=== PATIENT | female | born 1930 | race Caucasian/White ===

== ENCOUNTER 2017-12-22 17:12 | Inpatient (IN) | payer MEDICARE, BC ==
--- NOTE | 2017-12-22 17:25 | EDM.PDOC ---
ED HPI GENERAL MEDICAL PROBLEM - General Chief Complaint: Respiratory Problem Stated Complaint: SHANE PT Time Seen by Provider: 12/22/17 17:15 Source of Information: Reports: Patient, [facility] Records History Limitations: Reports: No Limitations - History of Present Illness INITIAL COMMENTS - FREE TEXT/NARRATIVE: Presents to the ER via the [employer] bus. Reported by [facility] nursing a history of hemoptysis and wheezing. The patient states that she has a history of epistaxis as well however. She states that she is not any more short of breath than she usually is. She does not take any blood thinners except an enteric-coated aspirin daily. No chest pain or fever. Back Pain Score (Numeric/FACES): 5 - Related Data Allergies Allergy/AdvReac Type Severity Reaction Status Date / Time influenza virus vaccine, Allergy Weakness Verified 12/22/17 17:18 specific [influenza virus vacc,specific] levofloxacin [From Levaquin] Allergy Cannot Verified 12/22/17 17:19 Remember Home Meds: Home Meds Acetaminophen [Tylenol Arthritis Pain] 650 mg PO Q6H PRN 01/22/15 [History] Aspirin [Halfprin] 81 mg PO DAILY 01/22/15 [History] Bumetanide 0.5 mg PO DAILY 01/22/15 [History] Calcium Citrate/Vitamin D3 [Calcium Citrate - Vit D Caplet] 1 each PO BID [History] Carbamide Peroxide [Debrox 6.5% Otic Soln] 3 drop OT DAILY PRN 01/22/15 [History ] Magnesium Hydroxide [Milk of Magnesia] 30 ml PO DAILY PRN 01/22/15 [History] Polyethylene Glycol 3350 [MiraLAX] 17 gm PO DAILY PRN 01/22/15 [History] Sodium Chloride [Saline Nasal [place]] 1 spray NS QID PRN 01/22/15 [History] buPROPion [Wellbutrin XL] 150 mg PO DAILY 01/22/15 [History] HYDROmorphone HCl [Dilaudid] 2 mg PO BEDTIME 01/29/15 [History] Hydrocodone/Acetaminophen [Hydrocodon-Acetaminophen 5-325] 1 tab PO BID [History] Allopurinol [Zyloprim] 100 mg PO DAILY 12/22/17 [History] Bisacodyl [Dulcolax] 10 mg RC Q24H PRN 12/22/17 [History] Calcium Carbonate [Tums] 1,000 mg PO Q6H PRN 12/22/17 [History] Dextran 70/Hypromellose [Artificial Tears] 15 ml OP TID 12/22/17 [History] Dextromethorphan HBr [Tussin Cough] 5 ml PO Q4H PRN 12/22/17 [History] Fexofenadine HCl [Vee Allergy] 60 mg PO DAILY 12/22/17 [History] Insulin Glargine,Hum.Rec.Anlog [Lantus Solostar] 25 unit SQ BEDTIME 12/22/17 [ History] Linagliptin [Tradjenta] 5 mg PO DAILY 12/22/17 [History] Lutein/Min/Vit C/Vit E Acetate [Ocuvite Lutein] 1 cap PO DAILY 12/22/17 [History ] Nystatin 1 gm TP Q8H PRN 12/22/17 [History] Ondansetron 4 mg PO Q8H PRN 12/22/17 [History] Propranolol HCl [Inderal Xl] 80 mg PO DAILY 12/22/17 [History] Sennosides [Senna] 1 tab PO BID PRN 12/22/17 [History] diphenhydrAMINE [Benadryl] 25 mg PO BEDTIME 12/22/17 [History] traZODone HCl [Trazodone HCl] 150 mg PO BEDTIME 12/22/17 [History] Social & Family History - Tobacco Use Smoking Status *Q: Never Smoker Second Hand Smoke Exposure: No - Alcohol Use Days Per Week of Alcohol Use: 0 - Recreational Drug Use Recreational Drug Use: No ED ROS GENERAL - Review of Systems Review Of Systems: ROS reveals no pertinent complaints other than HPI. Constitutional: Reports: No Symptoms. Denies: Fever ED EXAM, GENERAL - Physical Exam Exam: See Below Exam Limited By: No Limitations General Appearance: Alert, No Apparent Distress Ears: Normal External Exam Nose: Normal Inspection Throat/Mouth: Normal Inspection Head: Atraumatic, Normocephalic Neck: Normal Inspection, Supple, Non-Tender Respiratory/Chest: No Respiratory Distress, Normal Breath Sounds, Crackles ( bases) Cardiovascular: Regular Rate, Rhythm, Other (lower leg and forefoot edema) GI/Abdominal: Normal Bowel Sounds, Soft, Non-Tender, No Distention Back Exam: Normal Inspection Extremities: Pedal Edema Neurological: Alert, Oriented, Normal Cognition Psychiatric: Normal Affect, Normal Mood Skin Exam: Warm, Dry, Intact, Normal Color, No Rash Lymphatic: No Adenopathy Course - Vital Signs Last Recorded V/S: Last Vital Signs Temp 36.3 C 12/22/17 17:12 Pulse 65 12/22/17 18:33 Resp 18 12/22/17 18:33 BP 143/61 H 12/22/17 18:33 Pulse Ox 97 12/22/17 18:33 - Orders/Labs/Meds Orders: Active Orders 24 hr Category Date Time Status CXR [Chest 2V] [CR] Stat Exams 12/22/17 17:17 Ordered Labs: Laboratory Tests 12/22/17 12/22/17 12/22/17 Range/Units 17:33 17:33 17:33 WBC 10.35 (4.0-11.0) K/uL RBC 4.41 (4.30-5.90) M/uL Hgb 11.8 L (12.0-16.0) g/dL Hct 36.6 (36.0-46.0) % MCV 83.0 (80.0-98.0) fL MCH 26.8 L (27.0-32.0) pg MCHC 32.2 (31.0-37.0) g/dL RDW Std Deviation 48.2 (28.0-62.0) fl RDW Coeff of Kary 16 H (11.0-15.0) % Plt Count 183 (150-400) K/uL MPV 8.80 (7.40-12.00) fL Neut % (Auto) 69.4 (48.0-80.0) % Lymph % (Auto) 20.8 (16.0-40.0) % [place] % (Auto) 6.9 (0.0-15.0) % Eos % (Auto) 2.7 (0.0-7.0) % Baso % (Auto) 0.2 (0.0-1.5) % Neut # (Auto) 7.2 H (1.4-5.7) K/uL Lymph # (Auto) 2.2 (0.6-2.4) K/uL [place] # (Auto) 0.7 (0.0-0.8) K/uL Eos # (Auto) 0.3 (0.0-0.7) K/uL Baso # (Auto) 0.0 (0.0-0.1) K/uL Nucleated RBC % 0.0 /100WBC Nucleated RBCs # 0 K/uL INR 1.00 Sodium 139 (136-146) mmol/L Potassium 3.5 (3.5-5.1) mmol/L Chloride 98 (98-110) mmol/L Carbon Dioxide 29 (21-31) mmol/L BUN 15 (6.0-23.0) mg/dL Creatinine 1.6 H (0.6-1.5) mg/dL Est Cr Clr Drug Dosing 19.40 mL/min Estimated GFR (MDRD) 30.6 ml/min Glucose 150 H (60-110) mg/dL Calcium 11.3 H (8.8-10.8) mg/dL Total Bilirubin 0.6 (0.1-1.5) mg/dL AST 18 (5-40) IU/L ALT 18 (8-54) IU/L Alkaline Phosphatase 78 (40-150) Troponin I (0.0-0.29) NG/ML B-Natriuretic Peptide (<100) PG/ML Total Protein 6.4 (6.0-8.0) g/dL Albumin 3.1 L (3.4-4.8) g/dL Globulin 3.3 (2.0-3.5) g/dL Albumin/Globulin Ratio 0.9 L (1.3-2.8) 12/22/17 12/22/17 Range/Units 17:33 17:33 WBC (4.0-11.0) K/uL RBC (4.30-5.90) M/uL Hgb (12.0-16.0) g/dL Hct (36.0-46.0) % MCV (80.0-98.0) fL MCH (27.0-32.0) pg MCHC (31.0-37.0) g/dL RDW Std Deviation (28.0-62.0) fl RDW Coeff of Kary (11.0-15.0) % Plt Count (150-400) K/uL MPV (7.40-12.00) fL Neut % (Auto) (48.0-80.0) % Lymph % (Auto) (16.0-40.0) % [place] % (Auto) (0.0-15.0) % Eos % (Auto) (0.0-7.0) % Baso % (Auto) (0.0-1.5) % Neut # (Auto) (1.4-5.7) K/uL Lymph # (Auto) (0.6-2.4) K/uL [place] # (Auto) (0.0-0.8) K/uL Eos # (Auto) (0.0-0.7) K/uL Baso # (Auto) (0.0-0.1) K/uL Nucleated RBC % /100WBC Nucleated RBCs # K/uL INR Sodium (136-146) mmol/L Potassium (3.5-5.1) mmol/L Chloride (98-110) mmol/L Carbon Dioxide (21-31) mmol/L BUN (6.0-23.0) mg/dL Creatinine (0.6-1.5) mg/dL Est Cr Clr Drug Dosing mL/min Estimated GFR (MDRD) ml/min Glucose (60-110) mg/dL Calcium (8.8-10.8) mg/dL Total Bilirubin (0.1-1.5) mg/dL AST (5-40) IU/L ALT (8-54) IU/L Alkaline Phosphatase (40-150) Troponin I < 0.10 (0.0-0.29) NG/ML B-Natriuretic Peptide 147 H (<100) PG/ML Total Protein (6.0-8.0) g/dL Albumin (3.4-4.8) g/dL Globulin (2.0-3.5) g/dL Albumin/Globulin Ratio (1.3-2.8) - Re-Assessments/Exams Free Text/Narrative Re-Assessment/Exam: 12/22/17 19:[address] Hickman. Will admit for pnuemonitis. Departure - Departure Time of Disposition: 19:55 Disposition: Admitted As Inpatient 68 Condition: Good Clinical Impression: Pneumonitis - Discharge Information Forms: ED Department Discharge - My Orders Last 24 Hours: My Active Orders 12/22/17 17:17 CXR [Chest 2V] [CR] Stat - Assessment/Plan Last 24 Hours: My Active Orders 12/22/17 17:17 CXR [Chest 2V] [CR] Stat
[2017-12-22] MEDS ORDERED: Levofloxacin/Dextrose 5%-Water 750 MG in Premix Bag 1 BAG IV ONE (19:28)
[2017-12-22] MEDS ORDERED: Sodium Chloride 0.9% 1,000 ML IV ONE (19:32)
--- NOTE | 2017-12-22 20:52 | PCM.HP ---
H&P History of Present Illness - General Date of Service: 12/22/17 Admit Problem/Dx: Admission Diagnosis/Problem Admission Diagnosis/Problem Pneumonitis Source of Information: Patient, Family History Limitations: Reports: No Limitations - History of Present Illness Initial Comments - Free Text/Narative: 87-year-old [facility] female brought by [employer] with chief complaint of hemoptysis and wheezing with past medical history of cardiomegaly, hypertension, type 2 diabetes, gout, and GERD. Patient is accompanied by her grandson and his who help with the history. Patient states that she has been coughing for the past 3 weeks. She developed hemoptysis today and thus was sent to the emergency room for further assessment. Patient denies any blood thinners other than an enteric-coated aspirin. She denies any shortness of breath, chest pain, palpitations, syncopal episodes, or focal neurologic deficits. She also denies any recent fevers, chills, nausea, vomiting, diarrhea, or other signs of systemic infection. When questioned patient does admit to orthopnea, nocturnal paroxysmal dyspnea, pedal edema, and shortness of breath with exertion. She has never been told that she has congestive heart failure but does have a history of cardiomegaly. She does have pain bilaterally in her legs however this is more chronic in nature and she denies any significant new swelling to extremities bilaterally. She denies any history of coagulation disorders, DVT, or PE. She also has been wheezing and denies any history of COPD or asthma. This occasional wheezing started recently. Emergency department: Vital signs within normal limits, afebrile and satting 95% on oxygen. CBC showed mild anemia 11.8 and an INR of 1.0. CMP showed a mild increase in creatinine of 1.6 with GFR of 30.6. BNP was elevated at 147. Influenza screen was negative. Chest x-ray revealed mild cardiomegaly with ill-defined pulmonary vasculature suggesting pulmonary venous congestion, moderate right pleural effusion with right basilar atelectasis or infiltrate, linear atelectasis or scarring in the left lower lung field. In the emergency department she was started on Levaquin and 1 L normal saline. Blood cultures as well as sputum cultures were obtained. Patient was admitted for hemoptysis. After admission d-dimer was ordered by myself and found to be elevated at 1.75. CTA could not be performed secondary to GFR. VQ scan was not available secondary to being unavailable in the evening. A venous duplex Doppler bilateral lower extremities was ordered. Normal saline was discontinued as well as Levaquin as patient did say she had a allergy to Levaquin on her medication list however when questioned she states that she is unsure if this was actually a real allergy. Patient appeared vol. overloaded on exam. Onset of Symptoms: Reports: Today, Sudden Back Pain Score (Numeric/FACES): 5 - Related Data Allergies/Adverse Reactions: Allergies Allergy/AdvReac Type Severity Reaction Status Date / Time influenza virus vaccine, Allergy Weakness Verified 12/22/17 17:18 specific [influenza virus vacc,specific] levofloxacin [From Levaquin] Allergy Cannot Verified 12/22/17 17:19 Remember Home Medications: Home Meds Acetaminophen [Tylenol Arthritis Pain] 650 mg PO Q6H PRN 01/22/15 [History] Aspirin [Halfprin] 81 mg PO DAILY 01/22/15 [History] Bumetanide 1 mg PO BID 01/22/15 [History] Carbamide Peroxide [Debrox 6.5% Otic Soln] 3 drop EARBOTH DAILY PRN 01/22/15 [ History] Magnesium Hydroxide [Milk of Magnesia] 30 ml PO DAILY PRN 01/22/15 [History] Polyethylene Glycol 3350 [MiraLAX] 17 gm PO DAILY 01/22/15 [History] Sodium Chloride [Saline Nasal [place]] 1 spray NS QID PRN 01/22/15 [History] buPROPion [Wellbutrin XL] 150 mg PO BEDTIME 01/22/15 [History] HYDROmorphone HCl [Dilaudid] 2 mg PO BEDTIME 01/29/15 [History] Hydrocodone/Acetaminophen [Hydrocodon-Acetaminophen 5-325] 1 tab PO Q6H PRN 04/09 [History] Allopurinol [Zyloprim] 100 mg PO DAILY 12/22/17 [History] Bisacodyl [Dulcolax] 10 mg RC Q24H PRN 12/22/17 [History] Calcium Carbonate [Tums] 1,000 mg PO Q6H PRN 12/22/17 [History] Dextran 70/Hypromellose [Artificial Tears] 15 ml OP TID 12/22/17 [History] Dextromethorphan HBr [Tussin Cough] 5 ml PO Q4H PRN 12/22/17 [History] Fexofenadine HCl [Vee Allergy] 60 mg PO DAILY 12/22/17 [History] Insulin Glargine,Hum.Rec.Anlog [Lantus Solostar] 25 unit SUBCUT BEDTIME [History] Linagliptin [Tradjenta] 5 mg PO DAILY 12/22/17 [History] Lutein/Min/Vit C/Vit E Acetate [Ocuvite Lutein] 1 cap PO DAILY 12/22/17 [History ] Nystatin 1 applic TOP Q8H PRN 12/22/17 [History] Ondansetron 4 mg PO Q8H PRN 12/22/17 [History] Propranolol HCl [Inderal Xl] 80 mg PO DAILY 12/22/17 [History] Sennosides [Senna] 1 tab PO BID 12/22/17 [History] diphenhydrAMINE [Benadryl] 25 mg PO BEDTIME 12/22/17 [History] traZODone HCl [Trazodone HCl] 150 mg PO BEDTIME 12/22/17 [History] Aloe Vera/Sodium Chloride [[place] Saline Nasal Gel] 1 applic NASBOTH ASDIRECTED PRN 12/23/17 [History] Calcium Citrate/Vitamin D3 [Calcium Citrate - Vit D Tablet] 1 each PO BID [History] Nasal Airflow [Breathe Right Med/LG] 1 each TOP BEDTIME 12/23/17 [History] Past Medical History HEENT History: Reports: Allergic Rhinitis, Sinusitis Cardiovascular History: Reports: Hypertension Genitourinary History: Reports: Retention, Urinary Musculoskeletal History: Reports: Osteoarthritis, Other (See Below) Other Musculoskeletal History: weakness, osteomylitis Psychiatric History: Reports: Depression Endocrine/Metabolic History: Reports: Diabetes, Type II - Infectious Disease History Infectious Disease History: Reports: Chicken Pox, Measles, Mumps - Past Surgical History Musculoskeletal Surgical History: Reports: Knee Replacement Social & Family History - Family History Family Medical History: Noncontributory - Tobacco Use Smoking Status *Q: Never Smoker Second Hand Smoke Exposure: No - Alcohol Use Days Per Week of Alcohol Use: 0 - Recreational Drug Use Recreational Drug Use: No H&P Review of Systems - Review of Systems: Review Of Systems: See Below General: Denies: Fever, Chills, Malaise, Weakness, Fatigue HEENT: Denies: Headaches, Sore Throat Pulmonary: Reports: Wheezing, Cough, Sputum, Hemoptysis. Denies: Shortness of Breath Cardiovascular: Reports: Dyspnea on Exertion, Orthopnea, PND, Edema. Denies: Chest Pain, Palpitations Gastrointestinal: Denies: Abdominal Pain, Black Stool, Bloody Stool, Diarrhea, Nausea, Vomiting Genitourinary: Denies: Dysuria, Hematuria Musculoskeletal: Denies: Neck Pain, Leg Pain Skin: Denies: Cyanosis Neurological: Denies: Confusion, Dizziness, Headache Hematologic/Lymphatic: Denies: Anemia Immunologic: Denies: Anaphylaxis Exam - Exam Exam: See Below - Vital Signs Vital Signs: Last Vital Signs Temp 97.3 F 12/22/17 17:12 Pulse 60 12/22/17 20:38 Resp 20 12/22/17 20:38 BP 141/98 H 12/22/17 20:38 Pulse Ox 95 12/22/17 20:38 Weight: 107.501 kg - Exam Quality Assessment: DVT Prophylaxis General: Alert, Oriented, Cooperative HEENT: PERRLA, Hearing Intact, Mucosa Moist & [place], Nares Patent, Normal Nasal Septum, Posterior Pharynx Clear, Conjunctiva Clear, EOMI, EACs Clear, TMs Clear Neck: Supple, Trachea Midline, 2 Lungs: Clear to Auscultation, Normal Respiratory Effort Cardiovascular: Regular Rate, Regular Rhythm, Systolic Murmur, Gallop/S4 GI/Abdominal Exam: Normal Bowel Sounds, Soft, Non-Tender, No Organomegaly, No Distention, Pelvis Stable (Female) Exam: Deferred Rectal (Female) Exam: Deferred Back Exam: Normal Inspection, Full Range of Motion, NT Extremities: Normal Inspection, Non-Tender, No Pedal Edema, Normal Capillary Refill Peripheral Pulses: 2+: Radial (L), Radial (R), Posterior Tibial (L), Posterior Tibial (R), Dorsalis Pedis (L), Dorsalis Pedis (R) Skin: Warm, Dry, Intact Neurological: Cranial Nerves Intact Neuro Extensive - Mental Status: Alert, Oriented x3, Normal Mood/Affect, Normal Cognition Neuro Extensive - Motor, Sensory, Reflexes: CN II-XII Intact Psychiatric: Alert, Normal Affect, Normal Mood - Patient Data Result Diagrams: 12/22/17 17:33 12/22/17 17:33 Vishnu Results Last 24 hrs: Microbiology 12/22/17 19:57 Influenza Type A Antigen Screen - Final Nasopharyngeal Swab NEGATIVE INFLUENZA A VIRUS AG Influenza Type B Antigen Screen - Final NEGATIVE INFLUENZA B VIRUS AG *Q Meaningful Use (ADM) - VTE *Q VTE Criteria *Q: - Stroke *Q Stroke Criteria *Q: - AMI *Q AMI Criteria *Q: - Problem List (1) Pneumonia SNOMED Code(s): 723722268 ICD Code: J18.9 - PNEUMONIA, UNSPECIFIED ORGANISM Status: Suspected Priority: High Current Visit: Yes Qualifiers: Pneumonia type: due to unspecified organism Laterality: right Lung location: lower lobe of lung Qualified Code(s): J18.1 - Lobar pneumonia, unspecified organism (2) Cardiorenal syndrome SNOMED Code(s): 324090724 ICD Code: I13.10 - HYP HRT & CHR KDNY DIS W/O HRT FAIL, W STG 1-4/UNSP CHR KDNY Status: Suspected Priority: High Current Visit: Yes Qualifiers: Heart failure presence: with heart failure (3) CHF (congestive heart failure) SNOMED Code(s): 55710771 ICD Code: I50.9 - HEART FAILURE, UNSPECIFIED Status: Suspected Priority: High Current Visit: Yes Qualifiers: Heart failure type: unspecified Heart failure chronicity: acute Qualified Code(s): I50.9 - Heart failure, unspecified (4) Elevated d-dimer SNOMED Code(s): 888125025 ICD Code: R79.89 - OTHER SPECIFIED ABNORMAL FINDINGS OF BLOOD CHEMISTRY Status: Acute Priority: High Current Visit: Yes (5) DMII (diabetes mellitus, type 2) SNOMED Code(s): 78500343 ICD Code: E11.9 - TYPE 2 DIABETES MELLITUS WITHOUT COMPLICATIONS Status: Chronic Priority: Medium Current Visit: Yes Qualifiers: Diabetes mellitus complication status: without complication Diabetes mellitus snf insulin use: without snf use Qualified Code(s): E11.9 - Type 2 diabetes mellitus without complications (6) Cardiomegaly SNOMED Code(s): 9833281 ICD Code: I51.7 - CARDIOMEGALY Status: Chronic Priority: Medium Current Visit: Yes (7) GERD (gastroesophageal reflux disease) SNOMED Code(s): 405536511 ICD Code: K21.9 - GASTRO-ESOPHAGEAL REFLUX DISEASE WITHOUT ESOPHAGITIS Status: Chronic Priority: Low Current Visit: Yes Qualifiers: Esophagitis presence: without esophagitis Qualified Code(s): K21.9 - Gastro -esophageal reflux disease without esophagitis (8) HTN (hypertension) SNOMED Code(s): 55004330 ICD Code: I10 - ESSENTIAL (PRIMARY) HYPERTENSION Status: Chronic Priority : Low Current Visit: Yes Qualifiers: Hypertension type: unspecified Qualified Code(s): I10 - Essential (primary ) hypertension Problem List Initiated/Reviewed/Updated: Yes Orders Last 24hrs: Active Orders 24 hr Category Date Time Status D-DIMER QUANTITATIVE [COAG] Stat Lab 12/22/17 20:51 Ordered Medication Orders Levofloxacin/Dextrose 750 mg/ (Premix) 150 mls @ 100 mls/hr IV ONETIME ONE Stop: 12/22/17 20:57 Last Admin: 12/22/17 19:51 Dose: 100 mls/hr Sodium Chloride (Normal Saline) 1,000 mls @ 75 mls/hr IV STAT ONE Stop: 12/23/17 08:51 Last Admin: 12/22/17 19:46 Dose: 75 mls/hr Assessment/Plan Comment:: 87-year-old female admitted 12/23/17 for hemoptysis and possible pneumonia versus CHF exacerbation versus pulmonary embolism with past medical history of cardiomegaly, hypertension, type 2 diabetes, gout, and GERD. Hemoptysis: Acute onset but has had a cough for 3 weeks. Secondary to acute onset did get a d-dimer which was elevated. As stated in H&P kidney function at this time will not tolerate CTA and V/Q scan unavailable during the evening. Will get lower extremity venous Doppler bilaterally at this time. This could also be secondary to new onset congestive heart failure as patient has history of cardiomegaly and reports dyspnea on exertion, paroxysmal nocturnal dyspnea, orthopnea, and pedal edema. In addition, there is a possible suggestion that she has pneumonia by chest x-ray, however the patient has been afebrile with no leukocytosis. Possible pneumonia: As evidence on chest x-ray that showed right basilar atelectasis or infiltrate. Patient was given Levaquin initially in the emergency department which was discontinued secondary to possible history of allergy. Patient was started on vancomycin as well as Rocephin. We'll continue to monitor closely. Blood cultures and sputum cultures have been obtained. Possible pulmonary embolism: See hemoptysis above and waiting for results of venous Doppler. Patient is currently satting 95% on room air and in no respiratory distress. We'll plan for VQ scan possibly in a.m. and hold off on CTA secondary to kidney function. Possible CHF exacerbation: Patient has a history of cardiomegaly and on exam seems to be volume overloaded. She does have bilateral pedal edema and is positive for orthopnea, paroxysmal nocturnal dyspnea, dyspnea on exertion, and pedal edema. Will get echocardiogram and give patient IV Lasix 40 mg at this time and watch closely. Strict I&O and possible start fluid restrictions if needed. Cardiorenal syndrome/Acute kidney injury: Creatinine is acutely elevated and the patient seems to be more volume overloaded. Most likely cardiorenal in origin. Will diuresis at this time and watch to see if kidney function improves. If it does not we may need to volume resuscitate. Hypertension: Currently controlled will restart home medications. Type 2 diabetes: Is currently controlled on oral medications at home. Will start insulin sliding scale medium dose and monitor sugars 3 times a day before meals. We'll also get hemoglobin A1c to see current control status. GERD: Will place patient on 40 mg IV Protonix daily and monitor. VTE proph: SCD, Heparin Dispo: 2-4 days pending.
[2017-12-22] MEDS ORDERED: Ondansetron 4 MG Tab.DIS PO PRN (20:54)
[2017-12-22] MEDS ORDERED: Acetaminophen 325 MG Tab PO PRN (20:54)
[2017-12-22] MEDS ORDERED: Morphine 2 MG/ML Syringe IV PRN (21:15)
[2017-12-22] MEDS: Albuterol/Ipratropium 3.0-0.5 MG/3 ML Neb Soln NEB PRN (21:32)
[2017-12-22] MEDS: Furosemide 40 MG/4 ML VIAL IVPUSH SCH (21:43)
[2017-12-22] MEDS: Pantoprazole 40 MG Vial IVPUSH SCH (21:43)
[2017-12-22] MEDS ORDERED: Polyethylene Glycol 3350 Powder 17 GM Packet PO PRN (23:05)
[2017-12-22] MEDS ORDERED: Sennosides 8.6 MG Tab PO PRN (23:05)
[2017-12-22] MEDS ORDERED: Magnesium Hydroxide 400 MG/5 ML Susp 30 ML Cup PO PRN (23:05)
[2017-12-23] MEDS: Nystatin Topical Powder 15 GM Bottle TOP PRN ×2 (06:52→09:58)
[2017-12-23] MEDS: Insulin Aspart 100 Units/ML 3 ML Pen SUBCUT SCH ×3 (07:36→17:29)
[2017-12-23] MEDS ORDERED: Magnesium Sulfate/Water 4 GM in Premix Bag 1 BAG IV ONE (08:13)
[2017-12-23] MEDS ORDERED: Potassium Chloride 20 MEQ Tab.ER PO ONE (08:13)
[2017-12-23] MEDS: Furosemide 40 MG/4 ML VIAL IVPUSH SCH (08:15)
[2017-12-23] MEDS: Allopurinol 100 MG Tab PO SCH (08:16)
[2017-12-23] MEDS: Aspirin 81 MG Tab.EC PO SCH (08:16)
--- NOTE | 2017-12-23 08:16 | PCM.PN ---
- General Info Date of Service: 12/23/17 Admission Dx/Problem (Free Text): Admission Diagnosis/Problem Admission Diagnosis/Problem hemoptysis Subjective Update: Feeling ok this morning, still having some hemoptysis, but it is lessening. No chest pain, some SOB no palpitations. Appears SOB and flushed in the cheeks. No pain complaints Functional Status: Reports: Pain Controlled, Tolerating Diet, Urinating - Review of Systems General: Reports: Fatigue, Malaise HEENT: Denies: Headaches, Sore Throat, Rhinitis Pulmonary: Reports: Shortness of Breath, Pleuritic Chest Pain, Cough, Hemoptysis , Wheezing Cardiovascular: Reports: No Symptoms. Denies: Chest Pain, Dyspnea on Exertion, Lightheadedness Gastrointestinal: Reports: No Symptoms. Denies: Abdominal Pain, Nausea, Vomiting Genitourinary: Reports: No Symptoms. Denies: Dysuria, Frequency, Burning Neurological: Reports: No Symptoms. Denies: Confusion Psychiatric: Reports: No Symptoms. Denies: Confusion - Patient Data Vitals - Most Recent: Last Vital Signs Temp 98.1 F 12/23/17 07:59 Pulse 68 12/23/17 07:59 Resp 16 12/23/17 07:59 BP 136/61 12/23/17 07:59 Pulse Ox 92 L 12/23/17 07:59 Weight - Most Recent: 105.6 kg I&O - Last 24 Hours: Intake & Output 12/22/17 12/23/17 12/23/17 22:59 06:59 14:59 Intake Total 250 480 Output Total 200 Balance 250 280 Lab Results Last 24 Hours: Laboratory Results - last 24 hr 12/23/17 12/23/17 12/23/17 Range/Units 02:05 05:07 05:07 WBC 11.04 H (4.0-11.0) K/uL RBC 3.92 L (4.30-5.90) M/uL Hgb 10.5 L (12.0-16.0) g/dL Hct 32.3 L (36.0-46.0) % MCV 82.4 (80.0-98.0) fL MCH 26.8 L (27.0-32.0) pg MCHC 32.5 (31.0-37.0) g/dL RDW Std Deviation 47.2 (28.0-62.0) fl RDW Coeff of Kary 16 H (11.0-15.0) % Plt Count 176 (150-400) K/uL MPV 9.00 (7.40-12.00) fL Neut % (Auto) 73.5 (48.0-80.0) % Lymph % (Auto) 16.1 (16.0-40.0) % [place] % (Auto) 8.8 (0.0-15.0) % Eos % (Auto) 1.4 (0.0-7.0) % Baso % (Auto) 0.2 (0.0-1.5) % Neut # (Auto) 8.1 H (1.4-5.7) K/uL Lymph # (Auto) 1.8 (0.6-2.4) K/uL [place] # (Auto) 1.0 H (0.0-0.8) K/uL Eos # (Auto) 0.2 (0.0-0.7) K/uL Baso # (Auto) 0.0 (0.0-0.1) K/uL Nucleated RBC % 0.0 /100WBC Nucleated RBCs # 0 K/uL Sodium 138 (136-146) mmol/L Potassium 3.1 L (3.5-5.1) mmol/L Chloride 98 (98-110) mmol/L Carbon Dioxide 30 (21-31) mmol/L BUN 14 (6.0-23.0) mg/dL Creatinine 1.4 (0.6-1.5) mg/dL Est Cr Clr Drug Dosing 22.19 mL/min Estimated GFR (MDRD) 35.7 ml/min Glucose 148 H (60-110) mg/dL POC Glucose (60-110) mg/dL Hemoglobin A1c (4.5-6.2) % Calcium 10.3 (8.8-10.8) mg/dL Phosphorus 2.4 (2.4-4.7) mg/dL Magnesium 1.2 L (1.5-2.3) mEq/L Total Bilirubin 0.6 (0.1-1.5) mg/dL AST 14 (5-40) IU/L ALT 15 (8-54) IU/L Alkaline Phosphatase 67 (40-150) Total Protein 5.4 L (6.0-8.0) g/dL Albumin 2.7 L (3.4-4.8) g/dL Globulin 2.7 (2.0-3.5) g/dL Albumin/Globulin Ratio 1.0 L (1.3-2.8) Urine Color YELLOW Urine Appearance HAZY Urine pH 7.0 (5.0-8.0) Ur Specific White 1.010 (1.001-1.035) Urine Protein NEGATIVE (NEGATIVE) mg/dL Urine Glucose (UA) NEGATIVE (NEGATIVE) mg/dL Urine Ketones NEGATIVE (NEGATIVE) mg/dL Urine Occult Blood NEGATIVE (NEGATIVE) Urine Nitrite NEGATIVE (NEGATIVE) Urine Bilirubin NEGATIVE (NEGATIVE) Urine Urobilinogen 0.2 (<2.0) EU/dL Ur Leukocyte Esterase SMALL (NEGATIVE) Urine RBC 0-2 (0-2/HPF) Urine WBC 2-4 (0-5/HPF) Ur Epithelial Cells FEW (NONE-FEW) Urine Bacteria FEW (NEGATIVE) 12/23/17 12/23/17 Range/Units 05:07 06:46 WBC (4.0-11.0) K/uL RBC (4.30-5.90) M/uL Hgb (12.0-16.0) g/dL Hct (36.0-46.0) % MCV (80.0-98.0) fL MCH (27.0-32.0) pg MCHC (31.0-37.0) g/dL RDW Std Deviation (28.0-62.0) fl RDW Coeff of Kary (11.0-15.0) % Plt Count (150-400) K/uL MPV (7.40-12.00) fL Neut % (Auto) (48.0-80.0) % Lymph % (Auto) (16.0-40.0) % [place] % (Auto) (0.0-15.0) % Eos % (Auto) (0.0-7.0) % Baso % (Auto) (0.0-1.5) % Neut # (Auto) (1.4-5.7) K/uL Lymph # (Auto) (0.6-2.4) K/uL [place] # (Auto) (0.0-0.8) K/uL Eos # (Auto) (0.0-0.7) K/uL Baso # (Auto) (0.0-0.1) K/uL Nucleated RBC % /100WBC Nucleated RBCs # K/uL Sodium (136-146) mmol/L Potassium (3.5-5.1) mmol/L Chloride (98-110) mmol/L Carbon Dioxide (21-31) mmol/L BUN (6.0-23.0) mg/dL Creatinine (0.6-1.5) mg/dL Est Cr Clr Drug Dosing mL/min Estimated GFR (MDRD) ml/min Glucose (60-110) mg/dL POC Glucose 140 H (60-110) mg/dL Hemoglobin A1c 7.0 H (4.5-6.2) % Calcium (8.8-10.8) mg/dL Phosphorus (2.4-4.7) mg/dL Magnesium (1.5-2.3) mEq/L Total Bilirubin (0.1-1.5) mg/dL AST (5-40) IU/L ALT (8-54) IU/L Alkaline Phosphatase (40-150) Total Protein (6.0-8.0) g/dL Albumin (3.4-4.8) g/dL Globulin (2.0-3.5) g/dL Albumin/Globulin Ratio (1.3-2.8) Urine Color Urine Appearance Urine pH (5.0-8.0) Ur Specific White (1.001-1.035) Urine Protein (NEGATIVE) mg/dL Urine Glucose (UA) (NEGATIVE) mg/dL Urine Ketones (NEGATIVE) mg/dL Urine Occult Blood (NEGATIVE) Urine Nitrite (NEGATIVE) Urine Bilirubin (NEGATIVE) Urine Urobilinogen (<2.0) EU/dL Ur Leukocyte Esterase (NEGATIVE) Urine RBC (0-2/HPF) Urine WBC (0-5/HPF) Ur Epithelial Cells (NONE-FEW) Urine Bacteria (NEGATIVE) Vishnu Results Last 24 Hours: Microbiology 12/22/17 20:10 Gram Stain - Preliminary Sputum - Expectorated 12/22/17 19:57 Influenza Type A Antigen Screen - Final Nasopharyngeal Swab NEGATIVE INFLUENZA A VIRUS AG Influenza Type B Antigen Screen - Final NEGATIVE INFLUENZA B VIRUS AG Med Orders - Current: Current Medications Acetaminophen (Tylenol) 650 mg PO Q4H PRN PRN Reason: Pain (Mild 1-3)/fever Albuterol/Ipratropium (Duoneb 3.0-0.5 Mg/3 Ml) 3 ml NEB Q4HRRT PRN PRN Reason: Wheezing Last Admin: 12/22/17 21:32 Dose: 3 ml Allopurinol (Zyloprim) 100 mg PO DAILY [facility] Aspirin (Halfprin) 81 mg PO DAILY [place] Bupropion HCl (Wellbutrin Xl) 150 mg PO BEDTIME [place] Diphenhydramine HCl (Benadryl) 25 mg PO BEDTIME [place] Fexofenadine HCl (Vee) 60 mg PO DAILY [place] Furosemide (Lasix) 40 mg IVPUSH DAILY [facility] Last Admin: 12/23/17 08:15 Dose: 40 mg Heparin Sodium (Porcine) (Heparin Sodium) 5,000 units SUBCUT Q12HR [place] Hydromorphone HCl (Dilaudid) 2 mg PO BEDTIME [place] Ceftriaxone Sodium/Dextrose 1 (gm/ Premix) 50 mls @ 100 mls/hr IV DAILY [place] Vancomycin HCl 1 gm/ Sodium (Chloride) 250 mls @ 166 mls/hr IV Q24H [facility] Last Admin: 12/22/17 21:43 Dose: 166 mls/hr Magnesium Sulfate 4 gm/ Premix 100 mls @ 50 mls/hr IV ONETIME ONE Stop: 12/23/17 10:12 Insulin Aspart (Novolog) 0 unit SUBCUT TIDAC [place] PRN Reason: Protocol Last Admin: 12/23/17 07:36 Dose: Not Given Magnesium Hydroxide (Milk Of Magnesia) 30 ml PO DAILY PRN PRN Reason: Constipation Morphine Sulfate (Morphine) 2 mg IV Q2H PRN PRN Reason: Pain (severe 7-10) Nystatin (Nystop) 1 gm TOP Q8H PRN PRN Reason: Rash Last Admin: 12/23/17 06:52 Dose: 1 applic Ondansetron HCl (Zofran Odt) 4 mg PO Q4H PRN PRN Reason: nausea, able to take PO Ondansetron HCl (Zofran) 4 mg IVPUSH Q4H PRN PRN Reason: Nausea Pantoprazole Sodium (Protonix Iv) 40 mg IVPUSH Q24H [facility] Last Admin: 12/22/17 21:43 Dose: 40 mg Polyethylene Glycol (Miralax) 17 gm PO DAILY PRN PRN Reason: Constipation Potassium Chloride (Klor-Con M20) 40 meq PO ONETIME ONE Stop: 12/23/17 08:14 Senna (Senna) 8.6 mg PO BID PRN PRN Reason: Constipation Vancomycin HCl (Pharmacy To Dose - Vancomycin) 1 dose .XX ASDIRECTED [place] Discontinued Medications Levofloxacin/Dextrose 750 mg/ (Premix) 150 mls @ 100 mls/hr IV ONETIME ONE Stop: 12/22/17 20:57 Last Admin: 12/22/17 19:51 Dose: 100 mls/hr Sodium Chloride (Normal Saline) 1,000 mls @ 75 mls/hr IV STAT ONE Stop: 12/23/17 08:51 Last Admin: 12/22/17 19:46 Dose: 75 mls/hr - Exam General: Alert, Oriented, Cooperative, No Acute Distress HEENT: Pupils Equal, Pupils Reactive, Other (flushed in appearance and hot to touch) Neck: Supple, No JVD Lungs: Decreased Breath Sounds (bilateral bases) Cardiovascular: Regular Rate, Regular Rhythm GI/Abdominal Exam: Normal Bowel Sounds, Soft, Non-Tender, No Organomegaly, No Distention, No Abnormal Bruit, No Mass, Pelvis Stable Extremities: Normal Inspection, Normal Range of Motion, Non-Tender, Normal Capillary Refill, Pedal Edema (+1 pitting to BLE) Neurological: No New Focal Deficit Psy/Mental Status: Alert, Normal Affect, Normal Mood - Problem List & Annotations (1) Pneumonia SNOMED Code(s): 947409761 Code(s): J18.9 - PNEUMONIA, UNSPECIFIED ORGANISM Status: Suspected Priority: High Current Visit: Yes Qualifiers: Pneumonia type: due to unspecified organism Laterality: right Lung location: lower lobe of lung Qualified Code(s): J18.1 - Lobar pneumonia, unspecified organism (2) Hemoptysis SNOMED Code(s): 34345755 Code(s): R04.2 - HEMOPTYSIS Status: Acute Current Visit: Yes (3) Cardiomegaly SNOMED Code(s): 1093918 Code(s): I51.7 - CARDIOMEGALY Status: Chronic Priority: Medium Current Visit: Yes (4) DMII (diabetes mellitus, type 2) SNOMED Code(s): 49191958 Code(s): E11.9 - TYPE 2 DIABETES MELLITUS WITHOUT COMPLICATIONS Status: Chronic Priority: Medium Current Visit: Yes Qualifiers: Diabetes mellitus complication status: without complication Diabetes mellitus mcc insulin use: without mcc use Qualified Code(s): E11.9 - Type 2 diabetes mellitus without complications (5) GERD (gastroesophageal reflux disease) SNOMED Code(s): 575820352 Code(s): K21.9 - GASTRO-ESOPHAGEAL REFLUX DISEASE WITHOUT ESOPHAGITIS Status: Chronic Priority: Low Current Visit: Yes Qualifiers: Esophagitis presence: without esophagitis Qualified Code(s): K21.9 - Gastro -esophageal reflux disease without esophagitis (6) HTN (hypertension) SNOMED Code(s): 59728926 Code(s): I10 - ESSENTIAL (PRIMARY) HYPERTENSION Status: Chronic Priority : Low Current Visit: Yes Qualifiers: Hypertension type: unspecified Qualified Code(s): I10 - Essential (primary ) hypertension (7) CHF (congestive heart failure) SNOMED Code(s): 77906683 Code(s): I50.9 - HEART FAILURE, UNSPECIFIED Status: Suspected Priority: High Current Visit: Yes Qualifiers: Heart failure type: unspecified Heart failure chronicity: acute Qualified Code(s): I50.9 - Heart failure, unspecified - Problem List Review Problem List Initiated/Reviewed/Updated: Yes - My Orders Last 24 Hours: My Active Orders 12/23/17 08:13 Magnesium Sulfate/Water [Magnesium Sulfate 4 GM in Water 100 ML] 4 gm Premix Bag 1 bag IV ONETIME Potassium Chloride [Klor-Con M20] 40 meq PO ONETIME ONE - Plan Plan:: 87-year-old female admitted 12/23/17 for hemoptysis and possible pneumonia versus CHF exacerbation versus pulmonary embolism with past medical history of cardiomegaly, hypertension, type 2 diabetes, gout, and GERD. 1. Hemoptysis: Slightly improved. Awaiting VQ scan today. Acute onset but has had a cough for 3 weeks. Lower extremity venous Doppler bilaterally negative, but study limited. 2. Possible gram negative pneumonia: Slightly leukocytosis noted this morning, 11,000. Will treat for possible gram negative infection due to living at long-term. Chest x-ray that showed right basilar atelectasis or infiltrate. Will treat with Vancomycin, Meropenem and Zosyn due to Levaquin allergy, even thought patient tolerated Levaquin well, she nor family know reaction. Blood cultures and sputum cultures have been obtained. Sputum appears to have many gram positive cocci in chains and clusters as well as gram negative rods, VISHNU pending. 3.Possible CHF exacerbation: Slightly improved, BUN/Cr improved with Lasix. Will continue this 40 mg IV daily. ECHo obtained today and report pending. Pedal edema improving. Strict I&O and start fluid restrictions, 1.5 L daily if needed. Daily weights. 4. Hypertension: Stable, restart home medications. 5. Type 2 diabetes: Stable. Continue insulin sliding scale medium dose and monitor sugars 3 times a day before meals as well as home dose of Lantus. GERD: Will place patient on 40 mg IV Protonix daily and monitor. VTE prophylaxis: Heparin Dispo: 2-4 days pending.
[2017-12-23] MEDS: Heparin Sodium 5,000 Units/ML Vial SUBCUT SCH ×2 (08:19→20:51)
[2017-12-23] MEDS ORDERED: cefTRIAXone 1 GM in Premix Bag 1 BAG IV SCH (09:00)
[2017-12-23] MEDS ORDERED: Azithromycin 500 MG in Sodium Chloride 0.9% 250 ML IV ONE (09:30)
--- NOTE | 2017-12-23 10:00 | CR ---
EXAM DATE: 12/22/17 PATIENT'S AGE: 87 Patient: JAQUAN BAJWA Facility: [place], [place] Site . Site : [id number] Study: XRay Chest [id number]/27/2018 6:01:01 PM Ordering Physician: Doctor Dave Final Report: HISTORY: Hemoptysis, shortness of breath. FINDINGS: AP and lateral chest radiograph demonstrates mild cardiomegaly. Mental valve annular calcification is present. Pulmonary vasculature is ill-defined. There is linear density seen in the left base. There is blunting of the right costophrenic angle with right basilar density. Vertebral body heights are maintained within the thoracic spine. IMPRESSION: 1. Mild cardiomegaly with ill-defined pulmonary vasculature suggesting pulmonary venous congestion. 2. Moderate right pleural effusion with right basilar atelectatic or infiltrate. 3. Linear atelectasis or scarring in the left lower lung field. Dictated by Mariela Marquis MD @ 12/22/2017 6:18:23 PM Dictated by: Mariela Marquis MD @ 12/22/2017 18:18:37 (Electronic Signature) Report Signed by Proxy. LEE
--- NOTE | 2017-12-23 10:38 | US ---
EXAM DATE: 12/22/17 PATIENT'S AGE: 87 Patient: JAQUAN BAJWA Facility: [place], [place] Site . Site : 1932 Study: US Extremity Bilateral -12/23/2017 1:33:19 AM Ordering Physician: Scar Bhatia Final Report: INDICATION: Leg pain TECHNIQUE: : Ultrasound venous duplex lower extremity bilateral. Compression venous exam was performed using guillen-scale, color Doppler, and spectral Doppler imaging. COMPARISON: None addendum FINDINGS: The study is limited due to patient`s body habitus with poor grayscale visualization and evaluation of the bilateral lower extremity venous structures. Areas of venous wall calcifications are noted. There is limited Doppler flow evaluation in the mid to distal femoral veins bilaterally. Doppler flow is noted in the common femoral veins. The popliteal veins and calf veins are not well visualized. IMPRESSION: Limited study. The distal thigh and calf veins are not well evaluated. No definite venous thrombosis demonstrated in the proximal thighs, although evaluation is limited. Dictated by Fredrick David MD @ 12/23/2017 1:41:01 AM Dictated by: Fredrick David MD @ 12/23/2017 01:41:08 (Electronic Signature) Report Signed by Proxy. LEE
[2017-12-23] MEDS: Albuterol/Ipratropium 3.0-0.5 MG/3 ML Neb Soln NEB PRN (11:51)
[2017-12-23] MEDS: Propranolol 80 MG Cap.ER PO SCH (12:04)
[2017-12-23] MEDS: Meropenem 500 MG in Sodium Chloride 0.9% 50 ML IV SCH (13:42)
[2017-12-23] MEDS: Piperacillin/Tazobactam 2.25 GM in Sodium Chloride 0.9% 50 ML IV SCH ×2 (14:13→20:36)
[2017-12-23] MEDS: Albuterol/Ipratropium 3.0-0.5 MG/3 ML Neb Soln NEB SCH ×3 (16:38→23:04)
[2017-12-23] MEDS: buPROPion 150 MG Tab.ER PO SCH (20:38)
[2017-12-23] MEDS: HYDROmorphone 2 MG Tab PO SCH (20:38)
[2017-12-23] MEDS: diphenhydrAMINE 25 MG Cap PO SCH (20:38)
[2017-12-23] MEDS: hydrOXYzine HCl 25 MG Tab PO PRN (20:39)
[2017-12-23] MEDS: Pantoprazole 40 MG Vial IVPUSH SCH (20:53)
[2017-12-23] MEDS: Insulin Glargine,Human Rec. Analog 100 Units/ML 3 ML Pen SUBCUT SCH (21:03)
[2017-12-24] MEDS: Meropenem 500 MG in Sodium Chloride 0.9% 50 ML IV SCH ×2 (00:47→13:04)
[2017-12-24] MEDS: Piperacillin/Tazobactam 2.25 GM in Sodium Chloride 0.9% 50 ML IV SCH ×2 (02:30→07:59)
[2017-12-24] MEDS: Albuterol/Ipratropium 3.0-0.5 MG/3 ML Neb Soln NEB SCH ×6 (02:32→21:07)
[2017-12-24] MEDS: Nystatin Topical Powder 15 GM Bottle TOP PRN (04:42)
[2017-12-24] MEDS: Insulin Aspart 100 Units/ML 3 ML Pen SUBCUT SCH ×3 (06:55→17:42)
[2017-12-24] MEDS: Furosemide 40 MG/4 ML VIAL IVPUSH SCH (08:04)
[2017-12-24] MEDS: Aspirin 81 MG Tab.EC PO SCH (08:05)
[2017-12-24] MEDS: Propranolol 80 MG Cap.ER PO SCH (08:05)
[2017-12-24] MEDS: Allopurinol 100 MG Tab PO SCH (08:05)
[2017-12-24] MEDS: Heparin Sodium 5,000 Units/ML Vial SUBCUT SCH ×2 (08:05→21:55)
[2017-12-24] MEDS ORDERED: Azithromycin 250 MG Tab PO SCH (09:00)
[2017-12-24] MEDS: Potassium Chloride 20 MEQ Tab.ER PO SCH (09:50)
[2017-12-24] MEDS: Phosphorus #1 250 MG Tab PO SCH ×3 (11:41→23:39)
--- NOTE | 2017-12-24 15:14 | PCM.PN ---
- General Info Date of Service: 12/24/17 Subjective Update: She had a bout of coughing in the morning, we're waiting on the VQ scan. We will be reduced and the patient's antibiotics at the present moment. And continue to treat the patient and assess for her symptoms. - Patient Data Vitals - Most Recent: Last Vital Signs Temp 36.2 C 12/24/17 11:59 Pulse 56 L 12/24/17 11:59 Resp 16 12/24/17 11:59 BP 141/36 H 12/24/17 11:59 Pulse Ox 97 12/24/17 11:59 Weight - Most Recent: 103.7 kg I&O - Last 24 Hours: Intake & Output 12/24/17 12/24/17 12/24/17 06:59 14:59 22:59 Intake Total 670 50 Balance 670 50 Lab Results Last 24 Hours: Laboratory Results - last 24 hr 12/23/17 12/23/17 12/23/17 Range/Units 11:36 15:58 20:14 WBC (4.0-11.0) K/uL RBC (4.30-5.90) M/uL Hgb (12.0-16.0) g/dL Hct (36.0-46.0) % MCV (80.0-98.0) fL MCH (27.0-32.0) pg MCHC (31.0-37.0) g/dL RDW Std Deviation (28.0-62.0) fl RDW Coeff of Kary (11.0-15.0) % Plt Count (150-400) K/uL MPV (7.40-12.00) fL Neut % (Auto) (48.0-80.0) % Lymph % (Auto) (16.0-40.0) % [place] % (Auto) (0.0-15.0) % Eos % (Auto) (0.0-7.0) % Baso % (Auto) (0.0-1.5) % Neut # (Auto) (1.4-5.7) K/uL Lymph # (Auto) (0.6-2.4) K/uL [place] # (Auto) (0.0-0.8) K/uL Eos # (Auto) (0.0-0.7) K/uL Baso # (Auto) (0.0-0.1) K/uL Nucleated RBC % /100WBC Nucleated RBCs # K/uL Sodium (136-145) mmol/L Potassium (3.5-5.1) mmol/L Chloride (98-107) mmol/L Carbon Dioxide (21.0-32.0) mmol/L BUN (7.0-18.0) mg/dL Creatinine (0.6-1.0) mg/dL Est Cr Clr Drug Dosing mL/min Estimated GFR (MDRD) ml/min Glucose (74-106) mg/dL POC Glucose 163 H 124 H 161 H (60-110) mg/dL Calcium (8.5-10.1) mg/dL Phosphorus (2.6-4.7) mg/dL Magnesium (1.5-2.0) mg/dL Total Bilirubin (0.2-1.0) mg/dL AST (15-37) U/L ALT (14-63) U/L Alkaline Phosphatase (46-116) U/L Total Protein (6.4-8.2) g/dL Albumin (3.4-5.0) g/dL Globulin (2.0-3.5) g/dL Albumin/Globulin Ratio (1.3-2.8) 12/24/17 12/24/17 12/24/17 Range/Units 05:28 05:28 06:19 WBC 8.32 (4.0-11.0) K/uL RBC 3.62 L (4.30-5.90) M/uL Hgb 9.5 L (12.0-16.0) g/dL Hct 30.0 L (36.0-46.0) % MCV 82.9 (80.0-98.0) fL MCH 26.2 L (27.0-32.0) pg MCHC 31.7 (31.0-37.0) g/dL RDW Std Deviation 48.8 (28.0-62.0) fl RDW Coeff of Kary 16 H (11.0-15.0) % Plt Count 159 (150-400) K/uL MPV 8.70 (7.40-12.00) fL Neut % (Auto) 59.1 (48.0-80.0) % Lymph % (Auto) 28.0 (16.0-40.0) % [place] % (Auto) 10.5 (0.0-15.0) % Eos % (Auto) 2.2 (0.0-7.0) % Baso % (Auto) 0.2 (0.0-1.5) % Neut # (Auto) 4.9 (1.4-5.7) K/uL Lymph # (Auto) 2.3 (0.6-2.4) K/uL [place] # (Auto) 0.9 H (0.0-0.8) K/uL Eos # (Auto) 0.2 (0.0-0.7) K/uL Baso # (Auto) 0.0 (0.0-0.1) K/uL Nucleated RBC % 0.0 /100WBC Nucleated RBCs # 0 K/uL Sodium 139 (136-145) mmol/L Potassium 3.1 L (3.5-5.1) mmol/L Chloride 103 (98-107) mmol/L Carbon Dioxide 33.0 H (21.0-32.0) mmol/L BUN 13 (7.0-18.0) mg/dL Creatinine 1.6 H (0.6-1.0) mg/dL Est Cr Clr Drug Dosing 19.42 mL/min Estimated GFR (MDRD) 30.6 ml/min Glucose 120 H (74-106) mg/dL POC Glucose 120 H (60-110) mg/dL Calcium 9.2 (8.5-10.1) mg/dL Phosphorus 2.5 L (2.6-4.7) mg/dL Magnesium 1.8 (1.5-2.0) mg/dL Total Bilirubin 0.6 (0.2-1.0) mg/dL AST 14 L (15-37) U/L ALT 14 (14-63) U/L Alkaline Phosphatase 61 (46-116) U/L Total Protein 5.4 L (6.4-8.2) g/dL Albumin 1.9 L (3.4-5.0) g/dL Globulin 3.5 (2.0-3.5) g/dL Albumin/Globulin Ratio 0.5 L (1.3-2.8) 12/24/17 Range/Units 11:25 WBC (4.0-11.0) K/uL RBC (4.30-5.90) M/uL Hgb (12.0-16.0) g/dL Hct (36.0-46.0) % MCV (80.0-98.0) fL MCH (27.0-32.0) pg MCHC (31.0-37.0) g/dL RDW Std Deviation (28.0-62.0) fl RDW Coeff of Kary (11.0-15.0) % Plt Count (150-400) K/uL MPV (7.40-12.00) fL Neut % (Auto) (48.0-80.0) % Lymph % (Auto) (16.0-40.0) % [place] % (Auto) (0.0-15.0) % Eos % (Auto) (0.0-7.0) % Baso % (Auto) (0.0-1.5) % Neut # (Auto) (1.4-5.7) K/uL Lymph # (Auto) (0.6-2.4) K/uL [place] # (Auto) (0.0-0.8) K/uL Eos # (Auto) (0.0-0.7) K/uL Baso # (Auto) (0.0-0.1) K/uL Nucleated RBC % /100WBC Nucleated RBCs # K/uL Sodium (136-145) mmol/L Potassium (3.5-5.1) mmol/L Chloride (98-107) mmol/L Carbon Dioxide (21.0-32.0) mmol/L BUN (7.0-18.0) mg/dL Creatinine (0.6-1.0) mg/dL Est Cr Clr Drug Dosing mL/min Estimated GFR (MDRD) ml/min Glucose (74-106) mg/dL POC Glucose 132 H (60-110) mg/dL Calcium (8.5-10.1) mg/dL Phosphorus (2.6-4.7) mg/dL Magnesium (1.5-2.0) mg/dL Total Bilirubin (0.2-1.0) mg/dL AST (15-37) U/L ALT (14-63) U/L Alkaline Phosphatase (46-116) U/L Total Protein (6.4-8.2) g/dL Albumin (3.4-5.0) g/dL Globulin (2.0-3.5) g/dL Albumin/Globulin Ratio (1.3-2.8) Vishnu Results Last 24 Hours: Microbiology 12/22/17 20:10 Gram Stain - Final Sputum - Expectorated Sputum Culture - Final Proteus Mirabilis Normal Respiratory Olivia 12/22/17 19:58 Aerobic Blood Culture - Preliminary Blood - Venous - Lab Draw NO GROWTH AFTER 1 DAY Anaerobic Blood Culture - Preliminary NO GROWTH AFTER 1 DAY Med Orders - Current: Current Medications Acetaminophen (Tylenol) 650 mg PO Q4H PRN PRN Reason: Pain (Mild 1-3)/fever Albuterol/Ipratropium (Duoneb 3.0-0.5 Mg/3 Ml) 3 ml NEB Q4HRRT [facility] Last Admin: 12/24/17 09:42 Dose: Not Given Allopurinol (Zyloprim) 100 mg PO DAILY [facility] Last Admin: 12/24/17 08:05 Dose: 100 mg Aspirin (Halfprin) 81 mg PO DAILY [facility] Last Admin: 12/24/17 08:05 Dose: 81 mg Bupropion HCl (Wellbutrin Xl) 150 mg PO BEDTIME [facility] Last Admin: 12/23/17 20:38 Dose: 150 mg Diphenhydramine HCl (Benadryl) 25 mg PO BEDTIME [facility] Last Admin: 12/23/17 20:38 Dose: 25 mg Fexofenadine HCl (Vee) 60 mg PO DAILY [facility] Last Admin: 12/24/17 08:05 Dose: 60 mg Furosemide (Lasix) 40 mg IVPUSH DAILY [facility] Last Admin: 12/24/17 08:04 Dose: 40 mg Heparin Sodium (Porcine) (Heparin Sodium) 5,000 units SUBCUT Q12HR [facility] Last Admin: 12/24/17 08:05 Dose: 5,000 units Hydromorphone HCl (Dilaudid) 2 mg PO BEDTIME [facility] Last Admin: 12/23/17 20:38 Dose: 2 mg Hydroxyzine HCl (Atarax) 25 mg PO BEDTIME PRN PRN Reason: Insomnia Last Admin: 12/23/17 20:39 Dose: 25 mg Meropenem 500 mg/ Sodium (Chloride) 50 mls @ 50 mls/hr IV Q12H [facility] Last Admin: 12/24/17 13:04 Dose: 50 mls/hr Insulin Aspart (Novolog) 0 unit SUBCUT TIDAC [place] PRN Reason: Protocol Last Admin: 12/24/17 11:42 Dose: Not Given Insulin Glargine (Lantus Solostar) 25 units SUBCUT BEDTIME [facility] Last Admin: 12/23/17 21:03 Dose: 25 unit Magnesium Hydroxide (Milk Of Magnesia) 30 ml PO DAILY PRN PRN Reason: Constipation Morphine Sulfate (Morphine) 2 mg IV Q2H PRN PRN Reason: Pain (severe 7-10) Nystatin (Nystop) 1 gm TOP Q8H PRN PRN Reason: Rash Last Admin: 12/24/17 04:42 Dose: 1 applic Ondansetron HCl (Zofran Odt) 4 mg PO Q4H PRN PRN Reason: nausea, able to take PO Ondansetron HCl (Zofran) 4 mg IVPUSH Q4H PRN PRN Reason: Nausea Pantoprazole Sodium (Protonix Iv) 40 mg IVPUSH Q24H [facility] Last Admin: 12/23/17 20:53 Dose: 40 mg Polyethylene Glycol (Miralax) 17 gm PO DAILY PRN PRN Reason: Constipation Last Admin: 12/23/17 09:13 Dose: 17 gm Potassium Chloride (Klor-Con M20) 40 meq PO DAILY [facility] Last Admin: 12/24/17 09:50 Dose: 40 meq Propranolol HCl (Inderal La) 80 mg PO DAILY [facility] Last Admin: 12/24/17 08:05 Dose: 80 mg Senna (Senna) 8.6 mg PO BID PRN PRN Reason: Constipation Sodium Phosphate (Neutra-Phos) 250 mg PO QID [facility] Last Admin: 12/24/17 11:41 Dose: 250 mg Discontinued Medications Albuterol/Ipratropium (Duoneb 3.0-0.5 Mg/3 Ml) 3 ml NEB Q4HRRT PRN PRN Reason: Wheezing Last Admin: 12/23/17 11:51 Dose: 3 ml Azithromycin (Zithromax) 500 mg PO Q24H [facility] Levofloxacin/Dextrose 750 mg/ (Premix) 150 mls @ 100 mls/hr IV ONETIME ONE Stop: 12/22/17 20:57 Last Admin: 12/22/17 19:51 Dose: 100 mls/hr Sodium Chloride (Normal Saline) 1,000 mls @ 75 mls/hr IV STAT ONE Stop: 12/23/17 08:51 Last Admin: 12/22/17 19:46 Dose: 75 mls/hr Ceftriaxone Sodium/Dextrose 1 (gm/ Premix) 50 mls @ 100 mls/hr IV DAILY [facility] Last Admin: 12/23/17 08:30 Dose: 100 mls/hr Vancomycin HCl 1 gm/ Sodium (Chloride) 250 mls @ 166 mls/hr IV Q24H [facility] Last Admin: 12/22/17 21:43 Dose: 166 mls/hr Magnesium Sulfate 4 gm/ Premix 100 mls @ 50 mls/hr IV ONETIME ONE Stop: 12/23/17 10:12 Last Admin: 12/23/17 09:09 Dose: 50 mls/hr Azithromycin 500 mg/ Sodium (Chloride) 250 mls @ 250 mls/hr IV ONETIME ONE Stop: 12/23/17 10:29 Last Admin: 12/23/17 09:50 Dose: 250 mls/hr Piperacillin Sod/Tazobactam (Sod 2.25 gm/ Sodium Chloride) 50 mls @ 100 mls/hr IV Q6H [facility] Last Admin: 12/24/17 07:59 Dose: 100 mls/hr Potassium Chloride (Klor-Con M20) 40 meq PO ONETIME ONE Stop: 12/23/17 08:14 Last Admin: 12/23/17 08:29 Dose: 40 meq Vancomycin HCl (Pharmacy To Dose - Vancomycin) 1 dose .XX ASDIRECTED [place] - Exam Quality Assessment: Supplemental Oxygen General: Alert Lungs: Crackles Cardiovascular: Regular Rate Extremities: Pedal Edema - Problem List Review Problem List Initiated/Reviewed/Updated: Yes - My Orders Last 24 Hours: My Active Orders 12/24/17 09:30 Potassium Chloride [Klor-Con M20] 40 meq PO DAILY 12/24/17 12:00 Phosphorus #1 [Neutra-Phos] 250 mg PO QID - Plan Plan:: 87-year-old female admitted 12/23/17 for hemoptysis and possible pneumonia versus CHF exacerbation versus pulmonary embolism with past medical history of cardiomegaly, hypertension, type 2 diabetes, gout, and GERD. 1. Hemoptysis: Slightly improved. Awaiting VQ scan today. Acute onset but has had a cough for 3 weeks. Lower extremity venous Doppler bilaterally negative, but study limited. 2. Possible gram negative pneumonia: Leukocytosis has come down for the patient. Will treat for possible gram negative infection due [facility]. Chest x-ray that showed right basilar atelectasis or infiltrate. We have discontinued the vancomycin as well as Zosyn for this patient. 3.Possible CHF exacerbation: Slightly improved, BUN/Cr improved with Lasix. Will continue this 40 mg IV daily. ECHo obtained today and report pending. Pedal edema improving. Strict I&O and start fluid restrictions, 1.5 L daily if needed. Daily weights. 4. Hypertension: Stable, restart home medications. 5. Type 2 diabetes: Stable. Continue insulin sliding scale medium dose and monitor sugars 3 times a day before meals as well as home dose of Lantus. GERD: Will place patient on 40 mg IV Protonix daily and monitor. VTE prophylaxis: Heparin Dispo: 2-4 days pending.
--- NOTE | 2017-12-24 15:48 | NM ---
EXAMINATION: Ventilation/perfusion study HISTORY: Possible PE COMPARISON: Radiograph dated 12/22/2017 TECHNIQUE: Multiplanar imaging obtained of the chest following the administration of 4.3 mCi of techn etium 99m labeled MAA and 44 mCi of technetium 99m labeled DTPA. Lateral images were not able to be o btained due to patient size. FINDINGS: Overall the ventilation pattern of the lungs is notably degraded relative to the perfusion. This may be secondary to poor inspiration. No definite ventilation/perfusion defect identified. IMPRESSION: 1. Indeterminate for a pulmonary embolism.
--- NOTE | 2017-12-24 16:00 | ECHO ---
EXAM DATE: 12/22/17 PATIENT'S AGE: 87 The echocardiogram report can be seen in this patient's EMR (Electronic Medical Record) in the Reports section. The report has also been scanned into PACs. LEE
[2017-12-24] MEDS: HYDROmorphone 2 MG Tab PO SCH (21:51)
[2017-12-24] MEDS: diphenhydrAMINE 25 MG Cap PO SCH (21:53)
[2017-12-24] MEDS: hydrOXYzine HCl 25 MG Tab PO PRN (21:53)
[2017-12-24] MEDS: buPROPion 150 MG Tab.ER PO SCH (21:53)
[2017-12-24] MEDS: Pantoprazole 40 MG Vial IVPUSH SCH (21:55)
[2017-12-24] MEDS: Insulin Glargine,Human Rec. Analog 100 Units/ML 3 ML Pen SUBCUT SCH (22:07)
[2017-12-25] MEDS: Meropenem 500 MG in Sodium Chloride 0.9% 50 ML IV SCH ×2 (00:52→14:21)
[2017-12-25] MEDS: Albuterol/Ipratropium 3.0-0.5 MG/3 ML Neb Soln NEB SCH ×6 (02:10→21:30)
[2017-12-25] MEDS: Phosphorus #1 250 MG Tab PO SCH ×3 (05:10→18:10)
[2017-12-25] MEDS: Sodium Chloride 0.65% Nasal Spray 45 ML Bottle NASBOTH PRN ×2 (05:10→09:10)
[2017-12-25] MEDS: Insulin Aspart 100 Units/ML 3 ML Pen SUBCUT SCH ×3 (06:46→17:37)
[2017-12-25] MEDS: Allopurinol 100 MG Tab PO SCH (10:19)
[2017-12-25] MEDS: Potassium Chloride 20 MEQ Tab.ER PO SCH (10:19)
[2017-12-25] MEDS: Aspirin 81 MG Tab.EC PO SCH (10:19)
[2017-12-25] MEDS: Heparin Sodium 5,000 Units/ML Vial SUBCUT SCH ×2 (10:19→21:19)
[2017-12-25] MEDS: Propranolol 80 MG Cap.ER PO SCH (10:19)
[2017-12-25] MEDS: Furosemide 40 MG/4 ML VIAL IVPUSH SCH (10:20)
--- NOTE | 2017-12-25 18:55 | PCM.PN ---
- General Info Date of Service: 12/25/17 Subjective Update: She is doing better than yesterday, her shortness of breath secondary to congestive heart failure has improved, she is no longer having the bouts of cough that she was having yesterday secondary to nasal saline spray. She is sitting comfortably in her chair and was even requiring less oxygen than she was yesterday currently on 1 L nasal cannula. - Patient Data Vitals - Most Recent: Last Vital Signs Temp 37.0 C 12/25/17 11:57 Pulse 65 12/25/17 16:00 Resp 18 12/25/17 16:00 BP 117/63 12/25/17 16:00 Pulse Ox 96 12/25/17 16:00 Weight - Most Recent: 110.3 kg I&O - Last 24 Hours: Intake & Output 12/25/17 12/25/17 12/25/17 06:59 14:59 22:59 Intake Total 530 850 750 Output Total 260 Balance 530 850 490 Lab Results Last 24 Hours: Laboratory Results - last 24 hr 12/24/17 12/24/17 12/25/17 Range/Units 16:11 21:49 05:25 WBC 8.51 (4.0-11.0) K/uL RBC 3.87 L (4.30-5.90) M/uL Hgb 10.3 L (12.0-16.0) g/dL Hct 32.6 L (36.0-46.0) % MCV 84.2 (80.0-98.0) fL MCH 26.6 L (27.0-32.0) pg MCHC 31.6 (31.0-37.0) g/dL RDW Std Deviation 49.5 (28.0-62.0) fl RDW Coeff of Kary 17 H (11.0-15.0) % Plt Count 174 (150-400) K/uL MPV 9.00 (7.40-12.00) fL Neut % (Auto) 67.7 (48.0-80.0) % Lymph % (Auto) 20.9 (16.0-40.0) % [place] % (Auto) 8.7 (0.0-15.0) % Eos % (Auto) 2.6 (0.0-7.0) % Baso % (Auto) 0.1 (0.0-1.5) % Neut # (Auto) 5.8 H (1.4-5.7) K/uL Lymph # (Auto) 1.8 (0.6-2.4) K/uL [place] # (Auto) 0.7 (0.0-0.8) K/uL Eos # (Auto) 0.2 (0.0-0.7) K/uL Baso # (Auto) 0.0 (0.0-0.1) K/uL Nucleated RBC % 0.0 /100WBC Nucleated RBCs # 0 K/uL Sodium (136-145) mmol/L Potassium (3.5-5.1) mmol/L Chloride (98-107) mmol/L Carbon Dioxide (21.0-32.0) mmol/L BUN (7.0-18.0) mg/dL Creatinine (0.6-1.0) mg/dL Est Cr Clr Drug Dosing mL/min Estimated GFR (MDRD) ml/min Glucose (74-106) mg/dL POC Glucose 145 H 134 H (60-110) mg/dL Calcium (8.5-10.1) mg/dL Total Bilirubin (0.2-1.0) mg/dL AST (15-37) U/L ALT (14-63) U/L Alkaline Phosphatase (46-116) U/L Total Protein (6.4-8.2) g/dL Albumin (3.4-5.0) g/dL Globulin (2.0-3.5) g/dL Albumin/Globulin Ratio (1.3-2.8) 12/25/17 12/25/17 12/25/17 Range/Units 05:25 06:01 12:01 WBC (4.0-11.0) K/uL RBC (4.30-5.90) M/uL Hgb (12.0-16.0) g/dL Hct (36.0-46.0) % MCV (80.0-98.0) fL MCH (27.0-32.0) pg MCHC (31.0-37.0) g/dL RDW Std Deviation (28.0-62.0) fl RDW Coeff of Kary (11.0-15.0) % Plt Count (150-400) K/uL MPV (7.40-12.00) fL Neut % (Auto) (48.0-80.0) % Lymph % (Auto) (16.0-40.0) % [place] % (Auto) (0.0-15.0) % Eos % (Auto) (0.0-7.0) % Baso % (Auto) (0.0-1.5) % Neut # (Auto) (1.4-5.7) K/uL Lymph # (Auto) (0.6-2.4) K/uL [place] # (Auto) (0.0-0.8) K/uL Eos # (Auto) (0.0-0.7) K/uL Baso # (Auto) (0.0-0.1) K/uL Nucleated RBC % /100WBC Nucleated RBCs # K/uL Sodium 140 (136-145) mmol/L Potassium 3.5 (3.5-5.1) mmol/L Chloride 103 (98-107) mmol/L Carbon Dioxide 30.8 (21.0-32.0) mmol/L BUN 14 (7.0-18.0) mg/dL Creatinine 1.6 H (0.6-1.0) mg/dL Est Cr Clr Drug Dosing 19.42 mL/min Estimated GFR (MDRD) 30.6 ml/min Glucose 116 H (74-106) mg/dL POC Glucose 111 H 147 H (60-110) mg/dL Calcium 9.0 (8.5-10.1) mg/dL Total Bilirubin 0.5 (0.2-1.0) mg/dL AST 17 (15-37) U/L ALT 16 (14-63) U/L Alkaline Phosphatase 66 (46-116) U/L Total Protein 5.7 L (6.4-8.2) g/dL Albumin 2.0 L (3.4-5.0) g/dL Globulin 3.7 H (2.0-3.5) g/dL Albumin/Globulin Ratio 0.5 L (1.3-2.8) Vishnu Results Last 24 Hours: Microbiology 12/23/17 02:05 Urine Culture - Final Urine, Catheterized Enterococcus Faecalis Normal Urogenital Olivia 12/22/17 19:58 Aerobic Blood Culture - Preliminary Blood - Venous - Lab Draw NO GROWTH AFTER 2 DAYS Anaerobic Blood Culture - Preliminary NO GROWTH AFTER 2 DAYS Med Orders - Current: Current Medications Acetaminophen (Tylenol) 650 mg PO Q4H PRN PRN Reason: Pain (Mild 1-3)/fever Albuterol/Ipratropium (Duoneb 3.0-0.5 Mg/3 Ml) 3 ml NEB Q4HRRT [facility] Last Admin: 12/25/17 18:42 Dose: 3 ml Allopurinol (Zyloprim) 100 mg PO DAILY [facility] Last Admin: 12/25/17 10:19 Dose: 100 mg Aspirin (Halfprin) 81 mg PO DAILY [facility] Last Admin: 12/25/17 10:19 Dose: 81 mg Bupropion HCl (Wellbutrin Xl) 150 mg PO BEDTIME [facility] Last Admin: 12/24/17 21:53 Dose: 150 mg Diphenhydramine HCl (Benadryl) 25 mg PO BEDTIME [facility] Last Admin: 12/24/17 21:53 Dose: 25 mg Fexofenadine HCl (Vee) 60 mg PO DAILY [facility] Last Admin: 12/25/17 10:19 Dose: 60 mg Furosemide (Lasix) 40 mg IVPUSH DAILY [facility] Last Admin: 12/25/17 10:20 Dose: 40 mg Heparin Sodium (Porcine) (Heparin Sodium) 5,000 units SUBCUT Q12HR [facility] Last Admin: 12/25/17 10:19 Dose: 5,000 units Hydromorphone HCl (Dilaudid) 2 mg PO BEDTIME [facility] Last Admin: 12/24/17 21:51 Dose: 2 mg Hydroxyzine HCl (Atarax) 25 mg PO BEDTIME PRN PRN Reason: Insomnia Last Admin: 12/24/17 21:53 Dose: 25 mg Meropenem 500 mg/ Sodium (Chloride) 50 mls @ 50 mls/hr IV Q12H [facility] Last Admin: 12/25/17 14:21 Dose: 50 mls/hr Insulin Aspart (Novolog) 0 unit SUBCUT TIDAC [facility] PRN Reason: Protocol Last Admin: 12/25/17 17:37 Dose: 2 units Insulin Glargine (Lantus Solostar) 25 units SUBCUT BEDTIME [facility] Last Admin: 12/24/17 22:07 Dose: Not Given Magnesium Hydroxide (Milk Of Magnesia) 30 ml PO DAILY PRN PRN Reason: Constipation Morphine Sulfate (Morphine) 2 mg IV Q2H PRN PRN Reason: Pain (severe 7-10) Nystatin (Nystop) 1 gm TOP Q8H PRN PRN Reason: Rash Last Admin: 12/24/17 04:42 Dose: 1 applic Ondansetron HCl (Zofran Odt) 4 mg PO Q4H PRN PRN Reason: nausea, able to take PO Ondansetron HCl (Zofran) 4 mg IVPUSH Q4H PRN PRN Reason: Nausea Pantoprazole Sodium (Protonix Iv) 40 mg IVPUSH Q24H [facility] Last Admin: 12/24/17 21:55 Dose: 40 mg Polyethylene Glycol (Miralax) 17 gm PO DAILY PRN PRN Reason: Constipation Last Admin: 12/23/17 09:13 Dose: 17 gm Potassium Chloride (Klor-Con M20) 40 meq PO DAILY [facility] Last Admin: 12/25/17 10:19 Dose: 40 meq Propranolol HCl (Inderal La) 80 mg PO DAILY [facility] Last Admin: 12/25/17 10:19 Dose: 80 mg Senna (Senna) 8.6 mg PO BID PRN PRN Reason: Constipation Sodium Chloride ([place] Nasal [place]) 0 ml NASBOTH Q2H PRN PRN Reason: Congestion Last Admin: 12/25/17 09:10 Dose: 1 spray Sodium Phosphate (Neutra-Phos) 250 mg PO QID [facility] Last Admin: 12/25/17 18:10 Dose: 250 mg Discontinued Medications Albuterol/Ipratropium (Duoneb 3.0-0.5 Mg/3 Ml) 3 ml NEB Q4HRRT PRN PRN Reason: Wheezing Last Admin: 12/23/17 11:51 Dose: 3 ml Azithromycin (Zithromax) 500 mg PO Q24H [facility] Levofloxacin/Dextrose 750 mg/ (Premix) 150 mls @ 100 mls/hr IV ONETIME ONE Stop: 12/22/17 20:57 Last Admin: 12/22/17 19:51 Dose: 100 mls/hr Sodium Chloride (Normal Saline) 1,000 mls @ 75 mls/hr IV STAT ONE Stop: 12/23/17 08:51 Last Admin: 12/22/17 19:46 Dose: 75 mls/hr Ceftriaxone Sodium/Dextrose 1 (gm/ Premix) 50 mls @ 100 mls/hr IV DAILY [facility] Last Admin: 12/23/17 08:30 Dose: 100 mls/hr Vancomycin HCl 1 gm/ Sodium (Chloride) 250 mls @ 166 mls/hr IV Q24H [facility] Last Admin: 12/22/17 21:43 Dose: 166 mls/hr Magnesium Sulfate 4 gm/ Premix 100 mls @ 50 mls/hr IV ONETIME ONE Stop: 12/23/17 10:12 Last Admin: 12/23/17 09:09 Dose: 50 mls/hr Azithromycin 500 mg/ Sodium (Chloride) 250 mls @ 250 mls/hr IV ONETIME ONE Stop: 12/23/17 10:29 Last Admin: 12/23/17 09:50 Dose: 250 mls/hr Piperacillin Sod/Tazobactam (Sod 2.25 gm/ Sodium Chloride) 50 mls @ 100 mls/hr IV Q6H [facility] Last Admin: 12/24/17 07:59 Dose: 100 mls/hr Potassium Chloride (Klor-Con M20) 40 meq PO ONETIME ONE Stop: 12/23/17 08:14 Last Admin: 12/23/17 08:29 Dose: 40 meq Vancomycin HCl (Pharmacy To Dose - Vancomycin) 1 dose .XX ASDIRECTED [place] - Exam Quality Assessment: Supplemental Oxygen General: Alert, Oriented, Cooperative Lungs: Decreased Breath Sounds, Rhonchi Cardiovascular: Regular Rate, Regular Rhythm GI/Abdominal Exam: Normal Bowel Sounds Extremities: Pedal Edema - Problem List Review Problem List Initiated/Reviewed/Updated: Yes - My Orders Last 24 Hours: My Active Orders 12/24/17 20:44 Blood Glucose Check, Bedside [RC] QIDACANDBED Sodium Chloride 0.65% [[place] Nasal [place]] See Dose Instructions NASBOTH Q2H PRN 12/25/17 12:08 Communication Order [RC] DAILY - Plan Plan:: 87-year-old female admitted 12/23/17 for hemoptysis and possible pneumonia versus CHF exacerbation versus pulmonary embolism with past medical history of cardiomegaly, hypertension, type 2 diabetes, gout, and GERD. 1. Hemoptysis: Slightly improved. She is Is Inconclusive, However Based on Clinical Symptoms Is Unlikely the Patient Has a PE. 2. Possible gram negative pneumonia: Leukocytosis has come down for the patient. Will treat for possible gram negative infection due to living [place]. Chest x-ray that showed right basilar atelectasis or infiltrate. We have discontinued the vancomycin as well as Zosyn for this patient. 3.Possible CHF exacerbation: Slightly improved, BUN/Cr improved with Lasix. Will continue this 40 mg IV daily. ECHo obtained today and report pending. Pedal edema improving. Strict I&O and start fluid restrictions, 1.5 L daily if needed. Daily weights. It is improving from a congestive heart failure standpoint we will continue to follow 4. Hypertension: Stable, restart home medications. 5. Type 2 diabetes: Stable. Continue insulin sliding scale medium dose and monitor sugars 3 times a day before meals as well as home dose of Lantus. GERD: Will place patient on 40 mg IV Protonix daily and monitor. VTE prophylaxis: Heparin Dispo: Discharge on Thursday back to [facility]
[2017-12-25] MEDS: HYDROmorphone 2 MG Tab PO SCH (21:20)
[2017-12-25] MEDS: buPROPion 150 MG Tab.ER PO SCH (21:21)
[2017-12-25] MEDS: diphenhydrAMINE 25 MG Cap PO SCH (21:21)
[2017-12-25] MEDS: Insulin Glargine,Human Rec. Analog 100 Units/ML 3 ML Pen SUBCUT SCH (21:29)
[2017-12-25] MEDS: Pantoprazole 40 MG Vial IVPUSH SCH (21:51)
[2017-12-26] MEDS: Sodium Chloride 0.65% Nasal Spray 45 ML Bottle NASBOTH PRN ×2 (00:20→05:21)
[2017-12-26] MEDS: Phosphorus #1 250 MG Tab PO SCH ×5 (00:20→23:18)
[2017-12-26] MEDS: Meropenem 500 MG in Sodium Chloride 0.9% 50 ML IV SCH ×2 (01:53→12:28)
[2017-12-26] MEDS: Albuterol/Ipratropium 3.0-0.5 MG/3 ML Neb Soln NEB SCH ×6 (01:53→21:23)
[2017-12-26] MEDS: Insulin Aspart 100 Units/ML 3 ML Pen SUBCUT SCH ×3 (07:20→16:53)
[2017-12-26] MEDS: Potassium Chloride 20 MEQ Tab.ER PO SCH (08:08)
[2017-12-26] MEDS: Propranolol 80 MG Cap.ER PO SCH (08:08)
[2017-12-26] MEDS: Aspirin 81 MG Tab.EC PO SCH (08:08)
[2017-12-26] MEDS: Allopurinol 100 MG Tab PO SCH (08:08)
[2017-12-26] MEDS: Heparin Sodium 5,000 Units/ML Vial SUBCUT SCH ×2 (08:09→22:03)
[2017-12-26] MEDS: Furosemide 40 MG/4 ML VIAL IVPUSH SCH (08:09)
--- NOTE | 2017-12-26 14:33 | PCM.PN ---
- General Info Date of Service: 12/26/17 Subjective Update: Patient feeling better than she did yesterday from a respiratory standpoint, however she has been having a lot of diarrhea in the last day and a half about 7 -8 bowel movements. We have gotten a C. difficile stool culture ordered. We are continuing to monitor the patient's status continued to give her her antibiotics. - Patient Data Vitals - Most Recent: Last Vital Signs Temp 36.0 C 12/26/17 12:00 Pulse 60 12/26/17 12:00 Resp 18 12/26/17 12:00 BP 147/53 H 12/26/17 12:00 Pulse Ox 96 12/26/17 12:00 Weight - Most Recent: 106.8 kg I&O - Last 24 Hours: Intake & Output 12/25/17 12/26/17 12/26/17 22:59 06:59 14:59 Intake Total 750 750 50 Output Total 260 572 Balance 490 178 50 Lab Results Last 24 Hours: Laboratory Results - last 24 hr 12/25/17 12/25/17 12/26/17 Range/Units 16:59 21:23 05:40 WBC 8.70 (4.0-11.0) K/uL RBC 3.89 L (4.30-5.90) M/uL Hgb 10.3 L (12.0-16.0) g/dL Hct 32.6 L (36.0-46.0) % MCV 83.8 (80.0-98.0) fL MCH 26.5 L (27.0-32.0) pg MCHC 31.6 (31.0-37.0) g/dL RDW Std Deviation 50.6 (28.0-62.0) fl RDW Coeff of Kary 17 H (11.0-15.0) % Plt Count 170 (150-400) K/uL MPV 9.00 (7.40-12.00) fL Neut % (Auto) 64.3 (48.0-80.0) % Lymph % (Auto) 23.4 (16.0-40.0) % [place] % (Auto) 9.4 (0.0-15.0) % Eos % (Auto) 2.8 (0.0-7.0) % Baso % (Auto) 0.1 (0.0-1.5) % Neut # (Auto) 5.6 (1.4-5.7) K/uL Lymph # (Auto) 2.0 (0.6-2.4) K/uL [place] # (Auto) 0.8 (0.0-0.8) K/uL Eos # (Auto) 0.2 (0.0-0.7) K/uL Baso # (Auto) 0.0 (0.0-0.1) K/uL Nucleated RBC % 0.0 /100WBC Nucleated RBCs # 0 K/uL Sodium (136-145) mmol/L Potassium (3.5-5.1) mmol/L Chloride (98-107) mmol/L Carbon Dioxide (21.0-32.0) mmol/L BUN (7.0-18.0) mg/dL Creatinine (0.6-1.0) mg/dL Est Cr Clr Drug Dosing mL/min Estimated GFR (MDRD) ml/min Glucose (74-106) mg/dL POC Glucose 159 H 112 H (60-110) mg/dL Calcium (8.5-10.1) mg/dL Total Bilirubin (0.2-1.0) mg/dL AST (15-37) U/L ALT (14-63) U/L Alkaline Phosphatase (46-116) U/L Total Protein (6.4-8.2) g/dL Albumin (3.4-5.0) g/dL Globulin (2.0-3.5) g/dL Albumin/Globulin Ratio (1.3-2.8) 12/26/17 Range/Units 05:40 WBC (4.0-11.0) K/uL RBC (4.30-5.90) M/uL Hgb (12.0-16.0) g/dL Hct (36.0-46.0) % MCV (80.0-98.0) fL MCH (27.0-32.0) pg MCHC (31.0-37.0) g/dL RDW Std Deviation (28.0-62.0) fl RDW Coeff of Kary (11.0-15.0) % Plt Count (150-400) K/uL MPV (7.40-12.00) fL Neut % (Auto) (48.0-80.0) % Lymph % (Auto) (16.0-40.0) % [place] % (Auto) (0.0-15.0) % Eos % (Auto) (0.0-7.0) % Baso % (Auto) (0.0-1.5) % Neut # (Auto) (1.4-5.7) K/uL Lymph # (Auto) (0.6-2.4) K/uL [place] # (Auto) (0.0-0.8) K/uL Eos # (Auto) (0.0-0.7) K/uL Baso # (Auto) (0.0-0.1) K/uL Nucleated RBC % /100WBC Nucleated RBCs # K/uL Sodium 140 (136-145) mmol/L Potassium 3.9 (3.5-5.1) mmol/L Chloride 102 (98-107) mmol/L Carbon Dioxide 30.7 (21.0-32.0) mmol/L BUN 14 (7.0-18.0) mg/dL Creatinine 1.6 H (0.6-1.0) mg/dL Est Cr Clr Drug Dosing 19.42 mL/min Estimated GFR (MDRD) 30.6 ml/min Glucose 113 H (74-106) mg/dL POC Glucose (60-110) mg/dL Calcium 8.5 (8.5-10.1) mg/dL Total Bilirubin 0.6 (0.2-1.0) mg/dL AST 18 (15-37) U/L ALT 17 (14-63) U/L Alkaline Phosphatase 67 (46-116) U/L Total Protein 5.6 L (6.4-8.2) g/dL Albumin 2.0 L (3.4-5.0) g/dL Globulin 3.6 H (2.0-3.5) g/dL Albumin/Globulin Ratio 0.6 L (1.3-2.8) Vishnu Results Last 24 Hours: Microbiology 12/22/17 19:58 Aerobic Blood Culture - Preliminary Blood - Venous - Lab Draw NO GROWTH AFTER 3 DAYS Anaerobic Blood Culture - Preliminary NO GROWTH AFTER 3 DAYS 12/23/17 02:05 Urine Culture - Final Urine, Catheterized Enterococcus Faecalis Normal Urogenital Olivia Med Orders - Current: Current Medications Acetaminophen (Tylenol) 650 mg PO Q4H PRN PRN Reason: Pain (Mild 1-3)/fever Last Admin: 12/26/17 08:08 Dose: 650 mg Albuterol/Ipratropium (Duoneb 3.0-0.5 Mg/3 Ml) 3 ml NEB Q4HRRT [facility] Last Admin: 12/26/17 13:51 Dose: 3 ml Allopurinol (Zyloprim) 100 mg PO DAILY [facility] Last Admin: 12/26/17 08:08 Dose: 100 mg Aspirin (Halfprin) 81 mg PO DAILY [facility] Last Admin: 12/26/17 08:08 Dose: 81 mg Bupropion HCl (Wellbutrin Xl) 150 mg PO BEDTIME [facility] Last Admin: 12/25/17 21:21 Dose: 150 mg Diphenhydramine HCl (Benadryl) 25 mg PO BEDTIME [facility] Last Admin: 12/25/17 21:21 Dose: 25 mg Fexofenadine HCl (Vee) 60 mg PO DAILY [facility] Last Admin: 12/26/17 08:08 Dose: 60 mg Furosemide (Lasix) 40 mg IVPUSH DAILY [facility] Last Admin: 12/26/17 08:09 Dose: 40 mg Heparin Sodium (Porcine) (Heparin Sodium) 5,000 units SUBCUT Q12HR [facility] Last Admin: 12/26/17 08:09 Dose: 5,000 units Hydromorphone HCl (Dilaudid) 2 mg PO BEDTIME [facility] Last Admin: 12/25/17 21:20 Dose: 2 mg Hydroxyzine HCl (Atarax) 25 mg PO BEDTIME PRN PRN Reason: Insomnia Last Admin: 12/24/17 21:53 Dose: 25 mg Meropenem 500 mg/ Sodium (Chloride) 50 mls @ 50 mls/hr IV Q12H [facility] Last Admin: 12/26/17 12:28 Dose: 50 mls/hr Insulin Aspart (Novolog) 0 unit SUBCUT TIDAC [place] PRN Reason: Protocol Last Admin: 12/26/17 11:41 Dose: Not Given Insulin Glargine (Lantus Solostar) 25 units SUBCUT BEDTIME [facility] Last Admin: 12/25/17 21:29 Dose: Not Given Magnesium Hydroxide (Milk Of Magnesia) 30 ml PO DAILY PRN PRN Reason: Constipation Morphine Sulfate (Morphine) 2 mg IV Q2H PRN PRN Reason: Pain (severe 7-10) Nystatin (Nystop) 1 gm TOP Q8H PRN PRN Reason: Rash Last Admin: 12/24/17 04:42 Dose: 1 applic Ondansetron HCl (Zofran Odt) 4 mg PO Q4H PRN PRN Reason: nausea, able to take PO Ondansetron HCl (Zofran) 4 mg IVPUSH Q4H PRN PRN Reason: Nausea Pantoprazole Sodium (Protonix Iv) 40 mg IVPUSH Q24H [facility] Last Admin: 12/25/17 21:51 Dose: 40 mg Polyethylene Glycol (Miralax) 17 gm PO DAILY PRN PRN Reason: Constipation Last Admin: 12/23/17 09:13 Dose: 17 gm Potassium Chloride (Klor-Con M20) 40 meq PO DAILY [facility] Last Admin: 12/26/17 08:08 Dose: 40 meq Propranolol HCl (Inderal La) 80 mg PO DAILY [facility] Last Admin: 12/26/17 08:08 Dose: 80 mg Senna (Senna) 8.6 mg PO BID PRN PRN Reason: Constipation Sodium Chloride ([place] Nasal [place]) 0 ml NASBOTH Q2H PRN PRN Reason: Congestion Last Admin: 12/26/17 05:21 Dose: 1 spray Sodium Phosphate (Neutra-Phos) 250 mg PO QID [facility] Last Admin: 12/26/17 12:28 Dose: 250 mg Discontinued Medications Albuterol/Ipratropium (Duoneb 3.0-0.5 Mg/3 Ml) 3 ml NEB Q4HRRT PRN PRN Reason: Wheezing Last Admin: 12/23/17 11:51 Dose: 3 ml Azithromycin (Zithromax) 500 mg PO Q24H [facility] Levofloxacin/Dextrose 750 mg/ (Premix) 150 mls @ 100 mls/hr IV ONETIME ONE Stop: 12/22/17 20:57 Last Admin: 12/22/17 19:51 Dose: 100 mls/hr Sodium Chloride (Normal Saline) 1,000 mls @ 75 mls/hr IV STAT ONE Stop: 12/23/17 08:51 Last Admin: 12/22/17 19:46 Dose: 75 mls/hr Ceftriaxone Sodium/Dextrose 1 (gm/ Premix) 50 mls @ 100 mls/hr IV DAILY [facility] Last Admin: 12/23/17 08:30 Dose: 100 mls/hr Vancomycin HCl 1 gm/ Sodium (Chloride) 250 mls @ 166 mls/hr IV Q24H [facility] Last Admin: 12/22/17 21:43 Dose: 166 mls/hr Magnesium Sulfate 4 gm/ Premix 100 mls @ 50 mls/hr IV ONETIME ONE Stop: 12/23/17 10:12 Last Admin: 12/23/17 09:09 Dose: 50 mls/hr Azithromycin 500 mg/ Sodium (Chloride) 250 mls @ 250 mls/hr IV ONETIME ONE Stop: 12/23/17 10:29 Last Admin: 12/23/17 09:50 Dose: 250 mls/hr Piperacillin Sod/Tazobactam (Sod 2.25 gm/ Sodium Chloride) 50 mls @ 100 mls/hr IV Q6H [facility] Last Admin: 12/24/17 07:59 Dose: 100 mls/hr Potassium Chloride (Klor-Con M20) 40 meq PO ONETIME ONE Stop: 12/23/17 08:14 Last Admin: 12/23/17 08:29 Dose: 40 meq Vancomycin HCl (Pharmacy To Dose - Vancomycin) 1 dose .XX ASDIRECTED [place] - Exam Quality Assessment: Supplemental Oxygen General: Alert, Oriented, Cooperative HEENT: Pupils Equal, Pupils Reactive Lungs: Clear to Auscultation, Decreased Breath Sounds Cardiovascular: Regular Rate, Regular Rhythm GI/Abdominal Exam: Soft, Non-Tender - Problem List Review Problem List Initiated/Reviewed/Updated: Yes - Plan Plan:: 87-year-old female admitted 12/23/17 for hemoptysis and possible pneumonia versus CHF exacerbation versus pulmonary embolism with past medical history of cardiomegaly, hypertension, type 2 diabetes, gout, and GERD. 1. Hemoptysis: Slightly improved. She is Is Inconclusive, However Based on Clinical Symptoms Is Unlikely the Patient Has a PE. 2. Possible gram negative pneumonia: Leukocytosis within normal limits. Will treat for possible gram negative infection due to living at care home. Chest x-ray that showed right basilar atelectasis or infiltrate. We have discontinued the vancomycin as well as Zosyn for this patient. 3.Possible CHF exacerbation: Slightly improved, BUN/Cr improved with Lasix. Will continue this 40 mg IV daily. ECHo obtained today and report pending. Pedal edema improving. Strict I&O and start fluid restrictions, 1.5 L daily if needed. Daily weights. It is improving from a congestive heart failure standpoint we will continue to follow 4. Hypertension: Stable, restart home medications. 5. Type 2 diabetes: Stable. Continue insulin sliding scale medium dose and monitor sugars 3 times a day before meals as well as home dose of Lantus. GERD: Will place patient on 40 mg IV Protonix daily and monitor. 6. Patient has had multiple episodes of watery diarrhea, shall get a C. difficile evaluation as the patient has been on multiple antibiotics while inpatient during this admission. 7. Patient has refused to be transferred to an outside facility for increased level of care, patient states that she [address] [facility] and not be transferred out. VTE prophylaxis: Heparin Dispo: Discharge likely on Thursday back to [facility]
[2017-12-26] MEDS: HYDROmorphone 2 MG Tab PO SCH (22:01)
[2017-12-26] MEDS: diphenhydrAMINE 25 MG Cap PO SCH (22:01)
[2017-12-26] MEDS: buPROPion 150 MG Tab.ER PO SCH (22:03)
[2017-12-26] MEDS: Insulin Glargine,Human Rec. Analog 100 Units/ML 3 ML Pen SUBCUT SCH (22:06)
[2017-12-26] MEDS: Pantoprazole 40 MG Vial IVPUSH SCH (22:19)
[2017-12-27] MEDS: Meropenem 500 MG in Sodium Chloride 0.9% 50 ML IV SCH ×2 (00:30→12:57)
[2017-12-27] MEDS: Albuterol/Ipratropium 3.0-0.5 MG/3 ML Neb Soln NEB SCH ×6 (01:45→21:08)
[2017-12-27] MEDS: Ondansetron 4 MG/2 ML SDV IVPUSH PRN ×3 (03:17→18:38)
[2017-12-27] MEDS: Phosphorus #1 250 MG Tab PO SCH (05:40)
[2017-12-27] MEDS: Insulin Aspart 100 Units/ML 3 ML Pen SUBCUT SCH ×4 (06:29→17:03)
[2017-12-27] MEDS: Furosemide 40 MG/4 ML VIAL IVPUSH SCH (09:28)
[2017-12-27] MEDS: Propranolol 80 MG Cap.ER PO SCH ×2 (09:30→09:44)
[2017-12-27] MEDS: Allopurinol 100 MG Tab PO SCH (09:30)
[2017-12-27] MEDS: Aspirin 81 MG Tab.EC PO SCH (09:30)
[2017-12-27] MEDS: Heparin Sodium 5,000 Units/ML Vial SUBCUT SCH ×2 (09:30→20:55)
[2017-12-27] MEDS: Potassium Chloride 20 MEQ Tab.ER PO SCH ×2 (09:30→09:44)
--- NOTE | 2017-12-27 09:52 | PCM.PN ---
- Review of Systems Systems Review Comment:: reports nausea, denies any fever - Patient Data Vitals - Most Recent: Last Vital Signs Temp 36.8 C 12/27/17 08:00 Pulse 68 12/27/17 08:00 Resp 20 12/27/17 08:00 BP 185/60 H 12/27/17 08:00 Pulse Ox 92 L 12/27/17 08:00 Weight - Most Recent: 107.7 kg I&O - Last 24 Hours: Intake & Output 12/26/17 12/27/17 12/27/17 22:59 06:59 14:59 Intake Total 750 450 Output Total 500 279 Balance 250 171 Lab Results Last 24 Hours: Laboratory Results - last 24 hr 12/26/17 12/26/17 12/26/17 Range/Units 06:15 11:37 16:29 WBC (4.0-11.0) K/uL RBC (4.30-5.90) M/uL Hgb (12.0-16.0) g/dL Hct (36.0-46.0) % MCV (80.0-98.0) fL MCH (27.0-32.0) pg MCHC (31.0-37.0) g/dL RDW Std Deviation (28.0-62.0) fl RDW Coeff of Kary (11.0-15.0) % Plt Count (150-400) K/uL MPV (7.40-12.00) fL Neut % (Auto) (48.0-80.0) % Lymph % (Auto) (16.0-40.0) % [place] % (Auto) (0.0-15.0) % Eos % (Auto) (0.0-7.0) % Baso % (Auto) (0.0-1.5) % Neut # (Auto) (1.4-5.7) K/uL Lymph # (Auto) (0.6-2.4) K/uL [place] # (Auto) (0.0-0.8) K/uL Eos # (Auto) (0.0-0.7) K/uL Baso # (Auto) (0.0-0.1) K/uL Nucleated RBC % /100WBC Nucleated RBCs # K/uL Sodium (136-145) mmol/L Potassium (3.5-5.1) mmol/L Chloride (98-107) mmol/L Carbon Dioxide (21.0-32.0) mmol/L BUN (7.0-18.0) mg/dL Creatinine (0.6-1.0) mg/dL Est Cr Clr Drug Dosing mL/min Estimated GFR (MDRD) ml/min Glucose (74-106) mg/dL POC Glucose 112 H 145 H 142 H (60-110) mg/dL Calcium (8.5-10.1) mg/dL 12/26/17 12/27/17 12/27/17 Range/Units 21:00 02:00 05:30 WBC 10.93 (4.0-11.0) K/uL RBC 4.13 L (4.30-5.90) M/uL Hgb 10.9 L (12.0-16.0) g/dL Hct 34.6 L (36.0-46.0) % MCV 83.8 (80.0-98.0) fL MCH 26.4 L (27.0-32.0) pg MCHC 31.5 (31.0-37.0) g/dL RDW Std Deviation 51.4 (28.0-62.0) fl RDW Coeff of Kary 17 H (11.0-15.0) % Plt Count 188 (150-400) K/uL MPV 8.90 (7.40-12.00) fL Neut % (Auto) 75.5 (48.0-80.0) % Lymph % (Auto) 15.7 L (16.0-40.0) % [place] % (Auto) 7.0 (0.0-15.0) % Eos % (Auto) 1.6 (0.0-7.0) % Baso % (Auto) 0.2 (0.0-1.5) % Neut # (Auto) 8.3 H (1.4-5.7) K/uL Lymph # (Auto) 1.7 (0.6-2.4) K/uL [place] # (Auto) 0.8 (0.0-0.8) K/uL Eos # (Auto) 0.2 (0.0-0.7) K/uL Baso # (Auto) 0.0 (0.0-0.1) K/uL Nucleated RBC % 0.0 /100WBC Nucleated RBCs # 0 K/uL Sodium (136-145) mmol/L Potassium (3.5-5.1) mmol/L Chloride (98-107) mmol/L Carbon Dioxide (21.0-32.0) mmol/L BUN (7.0-18.0) mg/dL Creatinine (0.6-1.0) mg/dL Est Cr Clr Drug Dosing mL/min Estimated GFR (MDRD) ml/min Glucose (74-106) mg/dL POC Glucose 136 H 106 (60-110) mg/dL Calcium (8.5-10.1) mg/dL 12/27/17 12/27/17 Range/Units 05:30 06:27 WBC (4.0-11.0) K/uL RBC (4.30-5.90) M/uL Hgb (12.0-16.0) g/dL Hct (36.0-46.0) % MCV (80.0-98.0) fL MCH (27.0-32.0) pg MCHC (31.0-37.0) g/dL RDW Std Deviation (28.0-62.0) fl RDW Coeff of Kary (11.0-15.0) % Plt Count (150-400) K/uL MPV (7.40-12.00) fL Neut % (Auto) (48.0-80.0) % Lymph % (Auto) (16.0-40.0) % [place] % (Auto) (0.0-15.0) % Eos % (Auto) (0.0-7.0) % Baso % (Auto) (0.0-1.5) % Neut # (Auto) (1.4-5.7) K/uL Lymph # (Auto) (0.6-2.4) K/uL [place] # (Auto) (0.0-0.8) K/uL Eos # (Auto) (0.0-0.7) K/uL Baso # (Auto) (0.0-0.1) K/uL Nucleated RBC % /100WBC Nucleated RBCs # K/uL Sodium 141 (136-145) mmol/L Potassium 4.2 (3.5-5.1) mmol/L Chloride 102 (98-107) mmol/L Carbon Dioxide 31.0 (21.0-32.0) mmol/L BUN 13 (7.0-18.0) mg/dL Creatinine 1.5 H (0.6-1.0) mg/dL Est Cr Clr Drug Dosing 20.71 mL/min Estimated GFR (MDRD) 33.0 ml/min Glucose 134 H (74-106) mg/dL POC Glucose 148 H (60-110) mg/dL Calcium 8.8 (8.5-10.1) mg/dL Vishnu Results Last 24 Hours: Microbiology 12/22/17 19:58 Aerobic Blood Culture - Preliminary Blood - Venous - Lab Draw NO GROWTH AFTER 4 DAYS Anaerobic Blood Culture - Preliminary NO GROWTH AFTER 4 DAYS Med Orders - Current: Current Medications Acetaminophen (Tylenol) 650 mg PO Q4H PRN PRN Reason: Pain (Mild 1-3)/fever Last Admin: 12/26/17 08:08 Dose: 650 mg Albuterol/Ipratropium (Duoneb 3.0-0.5 Mg/3 Ml) 3 ml NEB Q4HRRT [facility] Last Admin: 12/27/17 09:32 Dose: Not Given Allopurinol (Zyloprim) 100 mg PO DAILY [facility] Last Admin: 12/27/17 09:30 Dose: 100 mg Aspirin (Halfprin) 81 mg PO DAILY [facility] Last Admin: 12/27/17 09:30 Dose: 81 mg Bupropion HCl (Wellbutrin Xl) 150 mg PO BEDTIME [facility] Last Admin: 12/26/17 22:03 Dose: 150 mg Diphenhydramine HCl (Benadryl) 25 mg PO BEDTIME [facility] Last Admin: 12/26/17 22:01 Dose: 25 mg Fexofenadine HCl (Vee) 60 mg PO DAILY [facility] Last Admin: 12/27/17 09:43 Dose: Not Given Furosemide (Lasix) 40 mg IVPUSH DAILY [facility] Last Admin: 12/27/17 09:28 Dose: 40 mg Heparin Sodium (Porcine) (Heparin Sodium) 5,000 units SUBCUT Q12HR [facility] Last Admin: 12/27/17 09:30 Dose: 5,000 units Hydromorphone HCl (Dilaudid) 2 mg PO BEDTIME [facility] Last Admin: 12/26/17 22:01 Dose: 2 mg Hydroxyzine HCl (Atarax) 25 mg PO BEDTIME PRN PRN Reason: Insomnia Last Admin: 12/24/17 21:53 Dose: 25 mg Meropenem 500 mg/ Sodium (Chloride) 50 mls @ 50 mls/hr IV Q12H [facility] Last Admin: 12/27/17 00:30 Dose: 50 mls/hr Insulin Aspart (Novolog) 0 unit SUBCUT TIDAC [place] PRN Reason: Protocol Last Admin: 12/27/17 06:29 Dose: Not Given Insulin Glargine (Lantus Solostar) 25 units SUBCUT BEDTIME [facility] Last Admin: 12/26/17 22:06 Dose: Not Given Magnesium Hydroxide (Milk Of Magnesia) 30 ml PO DAILY PRN PRN Reason: Constipation Morphine Sulfate (Morphine) 2 mg IV Q2H PRN PRN Reason: Pain (severe 7-10) Last Admin: 12/27/17 03:13 Dose: 2 mg Nystatin (Nystop) 1 gm TOP Q8H PRN PRN Reason: Rash Last Admin: 12/24/17 04:42 Dose: 1 applic Ondansetron HCl (Zofran Odt) 4 mg PO Q4H PRN PRN Reason: nausea, able to take PO Last Admin: 12/26/17 23:23 Dose: 4 mg Ondansetron HCl (Zofran) 4 mg IVPUSH Q4H PRN PRN Reason: Nausea Last Admin: 12/27/17 03:17 Dose: 4 mg Pantoprazole Sodium (Protonix Iv) 40 mg IVPUSH Q24H [facility] Last Admin: 12/26/17 22:19 Dose: 40 mg Polyethylene Glycol (Miralax) 17 gm PO DAILY PRN PRN Reason: Constipation Last Admin: 12/23/17 09:13 Dose: 17 gm Potassium Chloride (Klor-Con M20) 40 meq PO DAILY [facility] Last Admin: 12/27/17 09:44 Dose: Not Given Propranolol HCl (Inderal La) 80 mg PO DAILY [facility] Last Admin: 12/27/17 09:44 Dose: Not Given Senna (Senna) 8.6 mg PO BID PRN PRN Reason: Constipation Sodium Chloride ([place] Nasal [place]) 0 ml NASBOTH Q2H PRN PRN Reason: Congestion Last Admin: 12/26/17 05:21 Dose: 1 spray Discontinued Medications Albuterol/Ipratropium (Duoneb 3.0-0.5 Mg/3 Ml) 3 ml NEB Q4HRRT PRN PRN Reason: Wheezing Last Admin: 12/23/17 11:51 Dose: 3 ml Azithromycin (Zithromax) 500 mg PO Q24H [facility] Levofloxacin/Dextrose 750 mg/ (Premix) 150 mls @ 100 mls/hr IV ONETIME ONE Stop: 12/22/17 20:57 Last Admin: 12/22/17 19:51 Dose: 100 mls/hr Sodium Chloride (Normal Saline) 1,000 mls @ 75 mls/hr IV STAT ONE Stop: 12/23/17 08:51 Last Admin: 12/22/17 19:46 Dose: 75 mls/hr Ceftriaxone Sodium/Dextrose 1 (gm/ Premix) 50 mls @ 100 mls/hr IV DAILY [facility] Last Admin: 12/23/17 08:30 Dose: 100 mls/hr Vancomycin HCl 1 gm/ Sodium (Chloride) 250 mls @ 166 mls/hr IV Q24H [facility] Last Admin: 12/22/17 21:43 Dose: 166 mls/hr Magnesium Sulfate 4 gm/ Premix 100 mls @ 50 mls/hr IV ONETIME ONE Stop: 12/23/17 10:12 Last Admin: 12/23/17 09:09 Dose: 50 mls/hr Azithromycin 500 mg/ Sodium (Chloride) 250 mls @ 250 mls/hr IV ONETIME ONE Stop: 12/23/17 10:29 Last Admin: 12/23/17 09:50 Dose: 250 mls/hr Piperacillin Sod/Tazobactam (Sod 2.25 gm/ Sodium Chloride) 50 mls @ 100 mls/hr IV Q6H [facility] Last Admin: 12/24/17 07:59 Dose: 100 mls/hr Potassium Chloride (Klor-Con M20) 40 meq PO ONETIME ONE Stop: 12/23/17 08:14 Last Admin: 12/23/17 08:29 Dose: 40 meq Sodium Phosphate (Neutra-Phos) 250 mg PO QID [facility] Last Admin: 12/27/17 05:40 Dose: 250 mg Vancomycin HCl (Pharmacy To Dose - Vancomycin) 1 dose .XX ASDIRECTED [place] - Exam General: Alert, Oriented Lungs: Clear to Auscultation, Normal Respiratory Effort Cardiovascular: Regular Rate, Regular Rhythm GI/Abdominal Exam: Soft, Non-Tender Extremities: No Pedal Edema Skin: Warm, Dry, Intact Neurological: No New Focal Deficit - Problem List Review Problem List Initiated/Reviewed/Updated: Yes - My Orders Last 24 Hours: My Active Orders 12/28/17 05:11 BASIC METABOLIC PANEL,BMP [CHEM] AM CBC WITH AUTO DIFF [HEME] AM - Plan Plan:: 87-year-old female admitted 12/23/17 for hemoptysis and possible pneumonia versus CHF exacerbation versus pulmonary embolism with past medical history of cardiomegaly, hypertension, type 2 diabetes, gout, and GERD. Proteus pneumonia/Enterococcus UTI: patient was slow to respond to IV antibiotic therapy. She is currently on meropenum CHF exacerbation: on IV lasix, echo pending [facility]po: [facility]
[2017-12-27] MEDS: Sodium Chloride 0.65% Nasal Spray 45 ML Bottle NASBOTH PRN (12:58)
[2017-12-27] MEDS: Pantoprazole 40 MG Vial IVPUSH SCH (20:59)
[2017-12-27] MEDS: HYDROmorphone 2 MG Tab PO SCH (21:08)
[2017-12-27] MEDS: buPROPion 150 MG Tab.ER PO SCH (21:09)
[2017-12-27] MEDS: diphenhydrAMINE 25 MG Cap PO SCH (21:10)
[2017-12-27] MEDS: Insulin Glargine,Human Rec. Analog 100 Units/ML 3 ML Pen SUBCUT SCH (21:17)
[2017-12-28] MEDS: Ondansetron 4 MG/2 ML SDV IVPUSH PRN (00:55)
[2017-12-28] MEDS: Meropenem 500 MG in Sodium Chloride 0.9% 50 ML IV SCH ×2 (00:57→12:27)
[2017-12-28] MEDS: Albuterol/Ipratropium 3.0-0.5 MG/3 ML Neb Soln NEB SCH ×3 (02:36→09:45)
[2017-12-28] MEDS: Insulin Aspart 100 Units/ML 3 ML Pen SUBCUT SCH ×2 (06:30→11:21)
[2017-12-28] MEDS: Sodium Chloride 0.65% Nasal Spray 45 ML Bottle NASBOTH PRN (06:31)
[2017-12-28] MEDS: Potassium Chloride 20 MEQ Tab.ER PO SCH (09:14)
[2017-12-28] MEDS: Aspirin 81 MG Tab.EC PO SCH (09:14)
[2017-12-28] MEDS: Propranolol 80 MG Cap.ER PO SCH (09:14)
[2017-12-28] MEDS: Heparin Sodium 5,000 Units/ML Vial SUBCUT SCH (09:14)
[2017-12-28] MEDS: Allopurinol 100 MG Tab PO SCH (09:14)
[2017-12-28] MEDS: Furosemide 40 MG/4 ML VIAL IVPUSH SCH (09:20)
--- NOTE | 2017-12-28 10:11 | PCM.DCSUM1 ---
Discharge Summary - Hospital Course Brief History: 87-year-old [facility] home female brought by [facility] with chief complaint of hemoptysis and wheezing with past medical history of cardiomegaly, hypertension, type 2 diabetes, gout, and GERD. Patient is accompanied by her grandson and his who help with the history. Patient states that she has been coughing for the past 3 weeks. She developed hemoptysis today and thus was sent to the emergency room for further assessment. Patient denies any blood thinners other than an enteric-coated aspirin. She denies any shortness of breath, chest pain, palpitations, syncopal episodes, or focal neurologic deficits. She also denies any recent fevers, chills, nausea, vomiting, diarrhea, or other signs of systemic infection. When questioned patient does admit to orthopnea, nocturnal paroxysmal dyspnea, pedal edema, and shortness of breath with exertion. She has never been told that she has congestive heart failure but does have a history of cardiomegaly. She does have pain bilaterally in her legs however this is more chronic in nature and she denies any significant new swelling to extremities bilaterally. She denies any history of coagulation disorders, DVT, or PE. She also has been wheezing and denies any history of COPD or asthma. This occasional wheezing started recently. Emergency department: Vital signs within normal limits, afebrile and satting 95% on oxygen. CBC showed mild anemia 11.8 and an INR of 1.0. CMP showed a mild increase in creatinine of 1.6 with GFR of 30.6. BNP was elevated at 147. Influenza screen was negative. Chest x-ray revealed mild cardiomegaly with ill-defined pulmonary vasculature suggesting pulmonary venous congestion, moderate right pleural effusion with right basilar atelectasis or infiltrate, linear atelectasis or scarring in the left lower lung field. In the emergency department she was started on Levaquin and 1 L normal saline. Blood cultures as well as sputum cultures were obtained. Patient was admitted for hemoptysis. After admission d-dimer was ordered by myself and found to be elevated at 1.75. CTA could not be performed secondary to GFR. VQ scan was not available secondary to being unavailable in the evening. A venous duplex Doppler bilateral lower extremities was negative, but limited study. - Discharge Data Discharge Date: 12/28/17 Discharge Disposition: DC/Tfer to [facility] 03 Condition: Good - Discharge Diagnosis/Problem(s) (1) Pneumonia SNOMED Code(s): 314308758 ICD Code: J18.9 - PNEUMONIA, UNSPECIFIED ORGANISM Status: Suspected Priority: High Current Visit: Yes Qualifiers: Pneumonia type: due to unspecified organism Laterality: right Lung location: lower lobe of lung Qualified Code(s): J18.1 - Lobar pneumonia, unspecified organism (2) Hemoptysis SNOMED Code(s): 37199396 ICD Code: R04.2 - HEMOPTYSIS Status: Resolved Current Visit: Yes (3) Cardiomegaly SNOMED Code(s): 7496059 ICD Code: I51.7 - CARDIOMEGALY Status: Chronic Priority: Medium Current Visit: Yes (4) DMII (diabetes mellitus, type 2) SNOMED Code(s): 50663284 ICD Code: E11.9 - TYPE 2 DIABETES MELLITUS WITHOUT COMPLICATIONS Status: Chronic Priority: Medium Current Visit: Yes Qualifiers: Diabetes mellitus complication status: without complication Diabetes mellitus half-way insulin use: without oil heaterman use Qualified Code(s): E11.9 - Type 2 diabetes mellitus without complications (5) GERD (gastroesophageal reflux disease) SNOMED Code(s): 294026835 ICD Code: K21.9 - GASTRO-ESOPHAGEAL REFLUX DISEASE WITHOUT ESOPHAGITIS Status: Chronic Priority: Low Current Visit: Yes Qualifiers: Esophagitis presence: without esophagitis Qualified Code(s): K21.9 - Gastro -esophageal reflux disease without esophagitis (6) HTN (hypertension) SNOMED Code(s): 15912486 ICD Code: I10 - ESSENTIAL (PRIMARY) HYPERTENSION Status: Chronic Priority : Low Current Visit: Yes Qualifiers: Hypertension type: unspecified Qualified Code(s): I10 - Essential (primary ) hypertension - Patient Instructions Diet: Diabetic Diet Activity: As Tolerated Showering/Bathing: May Shower Notify Provider of: Fever, Increased Pain, Swelling and Redness, Drainage, Nausea and/or Vomiting Other/Special Instructions: PT/OT/ST to evaluate and treat - Discharge Plan Prescriptions/Med Rec: Cephalexin [Keflex] 500 mg PO Q12H #8 capsule Hydrocodone/Acetaminophen [Hydrocodon-Acetaminophen 5-325] 1 tab PO Q6H PRN #10 tablet PRN Reason: Pain HYDROmorphone [Dilaudid] 2 mg PO BEDTIME #10 tablet Home Medications: Home Meds Acetaminophen [Tylenol Arthritis Pain] 650 mg PO Q6H PRN 01/22/15 [History] Aspirin [Halfprin] 81 mg PO DAILY 01/22/15 [History] Bumetanide 1 mg PO BID 01/22/15 [History] Carbamide Peroxide [Debrox 6.5% Otic Soln] 3 drop EARBOTH DAILY PRN 01/22/15 [ History] Magnesium Hydroxide [Milk of Magnesia] 30 ml PO DAILY PRN 01/22/15 [History] Polyethylene Glycol 3350 [MiraLAX] 17 gm PO DAILY 01/22/15 [History] Sodium Chloride [Saline Nasal [place]] 1 spray NS QID PRN 01/22/15 [History] buPROPion [Wellbutrin XL] 150 mg PO BEDTIME 01/22/15 [History] Allopurinol [Zyloprim] 100 mg PO DAILY 12/22/17 [History] Bisacodyl [Dulcolax] 10 mg RC Q24H PRN 12/22/17 [History] Calcium Carbonate [Tums] 1,000 mg PO Q6H PRN 12/22/17 [History] Dextran 70/Hypromellose [Artificial Tears] 15 ml OP TID 12/22/17 [History] Dextromethorphan HBr [Tussin Cough] 5 ml PO Q4H PRN 12/22/17 [History] Fexofenadine HCl [Vee Allergy] 60 mg PO DAILY 12/22/17 [History] Insulin Glargine,Hum.Rec.Anlog [Lantus Solostar] 25 unit SUBCUT BEDTIME [History] Linagliptin [Tradjenta] 5 mg PO DAILY 12/22/17 [History] Lutein/Min/Vit C/Vit E Acetate [Ocuvite Lutein] 1 cap PO DAILY 12/22/17 [History ] Nystatin 1 applic TOP Q8H PRN 12/22/17 [History] Ondansetron 4 mg PO Q8H PRN 12/22/17 [History] Propranolol HCl [Inderal Xl] 80 mg PO DAILY 12/22/17 [History] Sennosides [Senna] 1 tab PO BID 12/22/17 [History] diphenhydrAMINE [Benadryl] 25 mg PO BEDTIME 12/22/17 [History] traZODone HCl [Trazodone HCl] 150 mg PO BEDTIME 12/22/17 [History] Aloe Vera/Sodium Chloride [[place] Saline Nasal Gel] 1 applic NASBOTH ASDIRECTED PRN 12/23/17 [History] Calcium Citrate/Vitamin D3 [Calcium Citrate - Vit D Tablet] 1 each PO BID [History] Nasal Airflow [Breathe Right Med/LG] 1 each TOP BEDTIME 12/23/17 [History] Cephalexin [Keflex] 500 mg PO Q12H #8 capsule 12/28/17 [Rx] HYDROmorphone [Dilaudid] 2 mg PO BEDTIME #10 tablet 12/28/17 [Rx] Hydrocodone/Acetaminophen [Hydrocodon-Acetaminophen 5-325] 1 tab PO Q6H PRN #10 tablet 12/28/17 [Rx] Referrals: PCP,None [Primary Care Provider] - Zeke Olvera MD [Physician] - 01/04/18 (next [place] rounds ) - Discharge Summary/Plan Comment DC Time >30 min.: No Discharge Summary/Plan Comment: Discharge Diagnoses: PNA UTI Hemoptysis cardiomegaly DM type 2 GERD HTN Leyla was admitted and treated for suspected gram negative pneumonia with broad spectrum IV antibiotics,BC and sputum culture were obtained as well as UC. She had slow response to antibiotics initially but leukocytosis improved. ECHo was obtained over concern of fluid overload appearance. She takes Bumex at home BID. ECHo revealed ejection fraction 55-65%, with enlarged R ventricle and dilated L atrium, otherwise study was technically difficult due to body habitus. Dyspnea improved. VQ scan was intermediate for PE, but study was limited due to poor inspiration. She was thought to be low risk for PE, no treatment started. She was continued on antibiotics, which were slowly narrowed down after KAMAR of sputum and UC returned. UC returned with 1,000-10,000 of Enterococcus facaelis and sputum returned with moderate Proteus mirabilis. Today she is feeling better, leukocytosis has resolved and no further hemoptysis noted. SOB is near baseline and she is not requiring oxygen continuously. She wa on 2 L PRN at [place] of SOB and at nighttime. She will be discharged home today with 5 more days of Keflex for UTI and PNA. She is to see PCP in 1 week or return to ED or clinic if concerns should arise. She is to continue all home medications. - General Info Date of Service: 12/28/17 Admission Dx/Problem (Free Text: Admission Diagnosis/Problem Admission Diagnosis/Problem hemoptysis Subjective Update: Feeling better than when she came in, no further bloody sputum. She denies chest pain or SOB. No abdominal pain. sour stomach intermittently. Functional Status: Reports: Pain Controlled, Tolerating Diet, Urinating - Review of Systems HEENT: Reports: No Symptoms. Denies: Glasses, Headaches, Sore Throat, Visual Changes Pulmonary: Reports: Shortness of Breath (intermittently, but at baseline now.), Cough. Denies: Sputum, Hemoptysis, Wheezing Cardiovascular: Denies: Chest Pain, Palpitations, Edema, Lightheadedness Gastrointestinal: Reports: Nausea (intermittently.). Denies: Abdominal Pain Genitourinary: Reports: No Symptoms. Denies: Dysuria, Frequency, Burning, Pain Skin: Reports: No Symptoms. Denies: Cyanosis Neurological: Reports: No Symptoms. Denies: Confusion Psychiatric: Reports: No Symptoms. Denies: Confusion - Patient Data Vitals - Most Recent: Last Vital Signs Temp 99.0 F 12/28/17 08:00 Pulse 77 12/28/17 08:00 Resp 22 H 12/28/17 08:00 BP 160/40 H 12/28/17 08:00 Pulse Ox 90 L 12/28/17 08:00 Weight - Most Recent: 107.7 kg I&O - Last 24 hours: Intake & Output 12/27/17 12/28/17 12/28/17 22:59 06:59 14:59 Intake Total 500 80 Balance 500 80 Lab Results - Last 24 hrs: Laboratory Results - last 24 hr 12/27/17 12/27/17 12/27/17 Range/Units 11:20 16:29 20:49 WBC (4.0-11.0) K/uL RBC (4.30-5.90) M/uL Hgb (12.0-16.0) g/dL Hct (36.0-46.0) % MCV (80.0-98.0) fL MCH (27.0-32.0) pg MCHC (31.0-37.0) g/dL RDW Std Deviation (28.0-62.0) fl RDW Coeff of Kary (11.0-15.0) % Plt Count (150-400) K/uL MPV (7.40-12.00) fL Neut % (Auto) (48.0-80.0) % Lymph % (Auto) (16.0-40.0) % [place] % (Auto) (0.0-15.0) % Eos % (Auto) (0.0-7.0) % Baso % (Auto) (0.0-1.5) % Neut # (Auto) (1.4-5.7) K/uL Lymph # (Auto) (0.6-2.4) K/uL [place] # (Auto) (0.0-0.8) K/uL Eos # (Auto) (0.0-0.7) K/uL Baso # (Auto) (0.0-0.1) K/uL Nucleated RBC % /100WBC Nucleated RBCs # K/uL Sodium (136-145) mmol/L Potassium (3.5-5.1) mmol/L Chloride (98-107) mmol/L Carbon Dioxide (21.0-32.0) mmol/L BUN (7.0-18.0) mg/dL Creatinine (0.6-1.0) mg/dL Est Cr Clr Drug Dosing mL/min Estimated GFR (MDRD) ml/min Glucose (74-106) mg/dL POC Glucose 206 H 136 H 124 H (60-110) mg/dL Calcium (8.5-10.1) mg/dL 12/28/17 12/28/17 12/28/17 Range/Units 05:40 05:40 06:30 WBC 7.78 (4.0-11.0) K/uL RBC 3.87 L (4.30-5.90) M/uL Hgb 10.3 L (12.0-16.0) g/dL Hct 32.6 L (36.0-46.0) % MCV 84.2 (80.0-98.0) fL MCH 26.6 L (27.0-32.0) pg MCHC 31.6 (31.0-37.0) g/dL RDW Std Deviation 51.4 (28.0-62.0) fl RDW Coeff of Kary 17 H (11.0-15.0) % Plt Count 175 (150-400) K/uL MPV 8.90 (7.40-12.00) fL Neut % (Auto) 60.0 (48.0-80.0) % Lymph % (Auto) 28.3 (16.0-40.0) % [place] % (Auto) 9.3 (0.0-15.0) % Eos % (Auto) 2.3 (0.0-7.0) % Baso % (Auto) 0.1 (0.0-1.5) % Neut # (Auto) 4.7 (1.4-5.7) K/uL Lymph # (Auto) 2.2 (0.6-2.4) K/uL [place] # (Auto) 0.7 (0.0-0.8) K/uL Eos # (Auto) 0.2 (0.0-0.7) K/uL Baso # (Auto) 0.0 (0.0-0.1) K/uL Nucleated RBC % 0.0 /100WBC Nucleated RBCs # 0 K/uL Sodium 140 (136-145) mmol/L Potassium 4.0 (3.5-5.1) mmol/L Chloride 103 (98-107) mmol/L Carbon Dioxide 31.5 (21.0-32.0) mmol/L BUN 13 (7.0-18.0) mg/dL Creatinine 1.5 H (0.6-1.0) mg/dL Est Cr Clr Drug Dosing 20.71 mL/min Estimated GFR (MDRD) 33.0 ml/min Glucose 108 H (74-106) mg/dL POC Glucose 110 (60-110) mg/dL Calcium 8.6 (8.5-10.1) mg/dL KAMAR Results - Last 24 hrs: Microbiology 12/28/17 05:44 Clostridium difficile Toxin A&B (M) - Final Stool / Feces Negative for C.Diff Toxin/AG 12/22/17 19:58 Aerobic Blood Culture - Final Blood - Venous - Lab Draw NO GROWTH AFTER 5 DAYS Anaerobic Blood Culture - Final NO GROWTH AFTER 5 DAYS Med Orders - Current: Current Medications Acetaminophen (Tylenol) 650 mg PO Q4H PRN PRN Reason: Pain (Mild 1-3)/fever Last Admin: 12/26/17 08:08 Dose: 650 mg Albuterol/Ipratropium (Duoneb 3.0-0.5 Mg/3 Ml) 3 ml NEB Q4HRRT [facility] Last Admin: 12/28/17 09:45 Dose: 3 ml Allopurinol (Zyloprim) 100 mg PO DAILY [facility] Last Admin: 12/28/17 09:14 Dose: 100 mg Aspirin (Halfprin) 81 mg PO DAILY [facility] Last Admin: 12/28/17 09:14 Dose: 81 mg Bupropion HCl (Wellbutrin Xl) 150 mg PO BEDTIME [facility] Last Admin: 12/27/17 21:09 Dose: 150 mg Diphenhydramine HCl (Benadryl) 25 mg PO BEDTIME [facility] Last Admin: 12/27/17 21:10 Dose: 25 mg Fexofenadine HCl (Vee) 60 mg PO DAILY [facility] Last Admin: 12/28/17 09:13 Dose: 60 mg Furosemide (Lasix) 40 mg IVPUSH DAILY [facility] Last Admin: 12/28/17 09:20 Dose: 40 mg Heparin Sodium (Porcine) (Heparin Sodium) 5,000 units SUBCUT Q12HR [facility] Last Admin: 12/28/17 09:14 Dose: 5,000 units Hydromorphone HCl (Dilaudid) 2 mg PO BEDTIME [facility] Last Admin: 12/27/17 21:08 Dose: 2 mg Hydroxyzine HCl (Atarax) 25 mg PO BEDTIME PRN PRN Reason: Insomnia Last Admin: 12/24/17 21:53 Dose: 25 mg Meropenem 500 mg/ Sodium (Chloride) 50 mls @ 50 mls/hr IV Q12H [facility] Last Admin: 12/28/17 00:57 Dose: 50 mls/hr Insulin Aspart (Novolog) 0 unit SUBCUT TIDAC [facility] PRN Reason: Protocol Last Admin: 12/28/17 06:30 Dose: Not Given Insulin Glargine (Lantus Solostar) 25 units SUBCUT BEDTIME [facility] Last Admin: 12/27/17 21:17 Dose: Not Given Magnesium Hydroxide (Milk Of Magnesia) 30 ml PO DAILY PRN PRN Reason: Constipation Morphine Sulfate (Morphine) 2 mg IV Q2H PRN PRN Reason: Pain (severe 7-10) Last Admin: 12/27/17 03:13 Dose: 2 mg Nystatin (Nystop) 1 gm TOP Q8H PRN PRN Reason: Rash Last Admin: 12/24/17 04:42 Dose: 1 applic Ondansetron HCl (Zofran Odt) 4 mg PO Q4H PRN PRN Reason: nausea, able to take PO Last Admin: 12/26/17 23:23 Dose: 4 mg Ondansetron HCl (Zofran) 4 mg IVPUSH Q4H PRN PRN Reason: Nausea Last Admin: 12/28/17 00:55 Dose: 4 mg Pantoprazole Sodium (Protonix Iv) 40 mg IVPUSH Q24H [place] Last Admin: 12/27/17 20:59 Dose: 40 mg Polyethylene Glycol (Miralax) 17 gm PO DAILY PRN PRN Reason: Constipation Last Admin: 12/23/17 09:13 Dose: 17 gm Potassium Chloride (Klor-Con M20) 40 meq PO DAILY [facility] Last Admin: 12/28/17 09:14 Dose: 40 meq Propranolol HCl (Inderal La) 80 mg PO DAILY [facility] Last Admin: 12/28/17 09:14 Dose: 80 mg Senna (Senna) 8.6 mg PO BID PRN PRN Reason: Constipation Sodium Chloride ([place] Nasal [place]) 0 ml NASBOTH Q2H PRN PRN Reason: Congestion Last Admin: 12/28/17 06:31 Dose: 1 spray Discontinued Medications Albuterol/Ipratropium (Duoneb 3.0-0.5 Mg/3 Ml) 3 ml NEB Q4HRRT PRN PRN Reason: Wheezing Last Admin: 12/23/17 11:51 Dose: 3 ml Azithromycin (Zithromax) 500 mg PO Q24H [place] Levofloxacin/Dextrose 750 mg/ (Premix) 150 mls @ 100 mls/hr IV ONETIME ONE Stop: 12/22/17 20:57 Last Admin: 12/22/17 19:51 Dose: 100 mls/hr Sodium Chloride (Normal Saline) 1,000 mls @ 75 mls/hr IV STAT ONE Stop: 12/23/17 08:51 Last Admin: 12/22/17 19:46 Dose: 75 mls/hr Ceftriaxone Sodium/Dextrose 1 (gm/ Premix) 50 mls @ 100 mls/hr IV DAILY [facility] Last Admin: 12/23/17 08:30 Dose: 100 mls/hr Vancomycin HCl 1 gm/ Sodium (Chloride) 250 mls @ 166 mls/hr IV Q24H [facility] Last Admin: 12/22/17 21:43 Dose: 166 mls/hr Magnesium Sulfate 4 gm/ Premix 100 mls @ 50 mls/hr IV ONETIME ONE Stop: 12/23/17 10:12 Last Admin: 12/23/17 09:09 Dose: 50 mls/hr Azithromycin 500 mg/ Sodium (Chloride) 250 mls @ 250 mls/hr IV ONETIME ONE Stop: 12/23/17 10:29 Last Admin: 12/23/17 09:50 Dose: 250 mls/hr Piperacillin Sod/Tazobactam (Sod 2.25 gm/ Sodium Chloride) 50 mls @ 100 mls/hr IV Q6H [facility] Last Admin: 12/24/17 07:59 Dose: 100 mls/hr Insulin Aspart (Novolog) 0 unit SUBCUT TIDAC [facility] PRN Reason: Protocol Last Admin: 12/27/17 12:33 Dose: Not Given Potassium Chloride (Klor-Con M20) 40 meq PO ONETIME ONE Stop: 12/23/17 08:14 Last Admin: 12/23/17 08:29 Dose: 40 meq Sodium Phosphate (Neutra-Phos) 250 mg PO QID [facility] Last Admin: 12/27/17 05:40 Dose: 250 mg Vancomycin HCl (Pharmacy To Dose - Vancomycin) 1 dose .XX ASDIRECTED [facility] - Exam Quality Assessment: Reports: DVT Prophylaxis. Denies: Supplemental Oxygen General: Reports: Alert, Oriented, Cooperative, No Acute Distress Neck: Reports: Supple Lungs: Reports: Clear to Auscultation, Normal Respiratory Effort, Decreased Breath Sounds (diminished to the bases, likely due to body habitus) Cardiovascular: Reports: Regular Rate, Regular Rhythm, No Murmurs Back Exam: Reports: Normal Inspection, Full Range of Motion Extremities: Normal Inspection, Normal Range of Motion, Non-Tender, No Pedal Edema, Normal Capillary Refill Skin: Reports: Warm, Dry Neurological: Reports: No New Focal Deficit Psy/Mental Status: Reports: Alert, Normal Affect, Normal Mood *Q Meaningful Use (DIS) - VTE *Q VTE Criteria *Q: - Stroke *Q Stroke Criteria *Q: - AMI *Q AMI Criteria *Q:
[2017-12-28 11:59] VITALS: BP 144/54
== END 2017-12-28 13:05 | DRG 194 ==
LOC: MW.ED 17:12 → MW.MS 19:51
PROVIDERS: ADMIT Family Medicine; ATTEND Family Medicine
DX: J18.9 Pneumonia, unspecified organism (principal); J18.1 Lobar pneumonia, unspecified organism; R04.2 Hemoptysis; N39.0 Urinary tract infection, site not specified; I13.0 Hypertensive heart and chronic kidney disease with heart failure and stage 1 through stage 4 chronic kidney disease, or unspecified chronic kidney disease; I50.30 Unspecified diastolic (congestive) heart failure; B96.4 Proteus (mirabilis) (morganii) as the cause of diseases classified elsewhere; B95.2 Enterococcus as the cause of diseases classified elsewhere; I51.7 Cardiomegaly; E11.22 Type 2 diabetes mellitus with diabetic chronic kidney disease; N18.9 Chronic kidney disease, unspecified; R79.89 Other specified abnormal findings of blood chemistry; R19.7 Diarrhea, unspecified; R11.0 Nausea; K21.9 Gastro-esophageal reflux disease without esophagitis; F32.9 Major depressive disorder, single episode, unspecified; Z79.899 Other long term (current) drug therapy; Z79.4 Long term (current) use of insulin; Z88.7 Allergy status to serum and vaccine; Z88.8 Allergy status to other drugs, medicaments and biological substances
CPT/HCPCS: 36415; 71046; 80053; 83880; 84484; 85025; 85379; 85610; 87040; 87077; 99285; J7040; 51701; 78582; 78582-26; 80048; 81001; 82962; 83036; 83735; 84100; 87070; 87086; 87088; 87186; 87205; 87324; 87804; 93005; 93306; 93970; 93970-26; 94640; 96365; 99284; A9270-GY; A9540; A9567; C9113; J0456; J0696; J1644; J1815-GY; J1940; J1956; J2185; J2270; J2405; J2543; J3370; J3475; J7050

== ENCOUNTER 2019-03-04 08:20 | Emergency (ER) | payer MEDICARE, BC ==
[2019-03-04 08:29] VITALS: BP 131/51
[2019-03-04] MEDS ORDERED: Lidocaine 1% with EPINEPHrine 1:100,000 20 ML MDV INJECT ONE (08:30)
--- NOTE | 2019-03-04 08:35 | EDM.PDOC ---
ED HPI GENERAL MEDICAL PROBLEM - General Chief Complaint: ENT Problem Stated Complaint: BLOODY NOSE Time Seen by Provider: 03/04/19 08:24 Source of Information: Reports: Patient History Limitations: Reports: No Limitations - History of Present Illness INITIAL COMMENTS - FREE TEXT/NARRATIVE: History of present illness: []Patient arrived from [place] bus with a right sided bloody nose for 1-1/2 hours. Patient takes aspirin and was sent here for evaluation. On arrival to the ED patient's nosebleed has stopped. Review of systems: As per history of present illness and below otherwise all systems reviewed and negative. Past medical history: As per history of present illness and as reviewed below otherwise noncontributory. Surgical history: As per history of present illness and as reviewed below otherwise noncontributory. Social history: No reported history of drug or alcohol abuse. Family history: As per history of present illness and as reviewed below otherwise noncontributory. Physical exam: General: Well developed, well nourished in NAD HEENT: Atraumatic, normocephalic, pupils reactive, negative for conjunctival pallor or scleral icterus, mucous membranes moist, throat clear, neck supple, nontender, trachea midline. No active bleeding from nares. Right nares cleaned no sign of perforation of vessels from bleeding No trickling blood in posterior pharynx Lungs: Clear to auscultation, breath sounds equal bilaterally, chest nontender. Heart: S1S2, regular, negative for clicks, rubs, or JVD. Abdomen: NABS, Soft, nondistended, nontender. Negative for masses or hepatosplenomegaly. Negative for costovertebral tenderness. Pelvis: Stable nontender. Genitourinary: Deferred. Rectal: Deferred. Extremities: Atraumatic, negative for cords or calf pain. Neurovascular unremarkable. Neuro: Awake, alert, oriented. Cranial nerves II through XII unremarkable. Cerebellum unremarkable. Motor and sensory unremarkable throughout. Exam nonfocal. Skin:warm and dry Diagnostics: None Therapeutics: None ED Course: Stable Impression: Epistaxis resolved Prescriptions: None Plan: Follow-up with primary care return if symptoms worsen or change. Ethyl staff was informed on how to stop a nosebleed was given a nasal clamp and pledgets if it recurs Definitive disposition and diagnosis as appropriate pending reevaluation and review of above. - Related Data Allergies Allergy/AdvReac Type Severity Reaction Status Date / Time influenza virus vaccine, Allergy Weakness Verified 09/19/18 07:06 specific [influenza virus vacc,specific] levofloxacin [From Levaquin] Allergy Cannot Verified 09/19/18 07:06 Remember Home Meds: Home Meds Acetaminophen [Tylenol Arthritis Pain] 650 mg PO Q6H PRN 01/22/15 [History] Aspirin [Halfprin] 81 mg PO DAILY 01/22/15 [History] Bumetanide 1 mg PO BID 01/22/15 [History] Magnesium Hydroxide [Milk of Magnesia] 30 ml PO DAILY PRN 01/22/15 [History] Polyethylene Glycol 3350 [MiraLAX] 17 gm PO DAILY 01/22/15 [History] Sodium Chloride [Saline Nasal [place]] 1 spray NASBOTH QID PRN 01/22/15 [History] buPROPion [Wellbutrin XL] 150 mg PO BEDTIME 01/22/15 [History] Allopurinol [Zyloprim] 100 mg PO DAILY 12/22/17 [History] Bisacodyl [Dulcolax] 10 mg RC Q24H PRN 12/22/17 [History] Calcium Carbonate [Tums] 1,000 mg PO Q6H PRN 12/22/17 [History] Dextromethorphan HBr [Tussin Cough] 5 ml PO Q4H PRN 12/22/17 [History] Insulin Glargine,Hum.Rec.Anlog [Lantus Solostar] 25 unit SUBCUT BEDTIME [History] Linagliptin [Tradjenta] 5 mg PO DAILY 12/22/17 [History] Lutein/Min/Vit C/Vit E Acetate [Ocuvite Lutein] 1 cap PO DAILY 12/22/17 [History ] Ondansetron 4 mg PO Q8H PRN 12/22/17 [History] Sennosides [Senna] 1 tab PO BID 12/22/17 [History] diphenhydrAMINE [Benadryl] 50 mg PO BEDTIME 12/22/17 [History] Aloe Vera/Sodium Chloride [[place] Saline Nasal Gel] 1 applic NASBOTH .4-10 TIMES DAILY PRN 12/23/17 [History] Calcium Citrate/Vitamin D3 [Calcium Citrate - Vit D Tablet] 1 each PO BID [History] Propranolol HCl 80 mg PO DAILY 09/19/18 [History] Dextran 70/Hypromellose [Artificial Tears] 1 drop EYEBOTH TID #0 09/23/18 [Rx] Ertapenem [INVanz] 1 gm IM DAILY #3 vial 09/23/18 [Rx] Ertapenem [INVanz] 1 gm IM Q24H #3 vial 09/23/18 [Rx] Fexofenadine HCl [Vee Allergy] 180 mg PO DAILY #0 09/23/18 [Rx] HYDROmorphone [Dilaudid] 2 mg PO BEDTIME #10 tablet 09/23/18 [Rx] Hydrocodone/Acetaminophen [Hydrocodon-Acetaminophen 5-325] 5 - 325 mg PO Q6H PRN #10 tablet 09/23/18 [Rx] Nystatin 100,000 unit TOP Q8H PRN #1 bottle 09/23/18 [Rx] traZODone HCl [Trazodone HCl] 150 mg PO BEDTIME #15 tablet 09/23/18 [Rx] Past Medical History HEENT History: Reports: Allergic Rhinitis, Sinusitis Cardiovascular History: Reports: Hypertension Other Cardiovascular History: localize edema Respiratory History: Reports: Other (See Below) Other Respiratory History: 02 PRN 2liters/min for less than 90% saturation Gastrointestinal History: Reports: Chronic Constipation. Denies: Cirrhosis Genitourinary History: Reports: Chronic Renal Insuffiency, Retention, Urinary Other Genitourinary History: Chronic kidney dse Musculoskeletal History: Reports: Osteoarthritis, Other (See Below) Other Musculoskeletal History: weakness, osteomylitis Neurological History: Reports: Other (See Below). Denies: CVA, MS, Parkinson's Other Neuro History: spinal stenosis, essential tremor Psychiatric History: Reports: Depression Other Psychiatric History: sleep disorder Endocrine/Metabolic History: Reports: Diabetes, Type II Other Endocrine/Metabolic History: group home use of insulin Hematologic History: Reports: Blood Transfusion(s) Oncologic (Cancer) History: Reports: None - Infectious Disease History Infectious Disease History: Reports: Chicken Pox, Measles, Mumps - Past Surgical History GI Surgical History: Reports: None Musculoskeletal Surgical History: Reports: Knee Replacement Social & Family History - Family History Family Medical History: Noncontributory - Caffeine Use Caffeine Use: Reports: None ED ROS ENT - Review of Systems Review Of Systems: ROS reveals no pertinent complaints other than HPI. ED EXAM, ENT - Physical Exam Exam: See Below (See history of present illness) Course - Vital Signs Last Recorded V/S: Last Vital Signs Temp 96.5 F 03/04/19 08:27 Pulse 71 03/04/19 08:27 Resp 16 03/04/19 08:27 BP 131/51 L 03/04/19 08:27 Pulse Ox 96 03/04/19 08:27 - Orders/Labs/Meds Meds: Medications Discontinued Medications Generic Name Dose Route Start Last Admin Trade Name Neal PRN Reason Stop Dose Admin Lidocaine/Epinephrine 20 ml 03/04/19 08:30 03/04/19 08:59 Xylocaine 1% With Epinephrine 1:100,000 INJECT 03/04/19 08:31 Not Given ONETIME ONE Departure - Departure Time of Disposition: 08:58 Disposition: Home, Self-Care 01 Condition: Good Clinical Impression: Epistaxis - Discharge Information *PRESCRIPTION DRUG MONITORING PROGRAM REVIEWED*: No *COPY OF PRESCRIPTION DRUG MONITORING REPORT IN PATIENT JIGAR: No Instructions: Nosebleed, [id number] Referrals: Zeke Olvera MD [Primary Care Provider] - Forms: ED Department Discharge Additional Instructions: The following information is given to patients seen in the emergency department who are being discharged to home. This information is to outline your options for follow-up care. We provide all patients seen in our emergency department with a follow-up referral. The need for follow-up, as well as the timing and circumstances, are variable depending upon the specifics of your emergency department visit. If you don't have a primary care physician on staff, we will provide you with a referral. We always advise you to contact your personal physician following an emergency department visit to inform them of the circumstance of the visit and for follow-up with them and/or the need for any referrals to a consulting specialist. The emergency department will also refer you to a specialist when appropriate. This referral assures that you have the opportunity for follow-up care with a specialist. All of these measure are taken in an effort to provide you with optimal care, which includes your follow-up. Under all circumstances we always encourage you to contact your private physician who remains a resource for coordinating your care. When calling for follow-up care, please make the office aware that this follow-up is from your recent emergency room visit. If for any reason you are refused follow-up, please contact the [facility] Emergency Department at and asked to speak to the emergency department charge nurse. [facility] [place] [id number]
== END 2019-03-04 09:06 | disposition home or self-care (01) ==
LOC: MW.ED 08:20
DX: R04.0 Epistaxis (principal); I10 Essential (primary) hypertension; E11.9 Type 2 diabetes mellitus without complications; Z88.1 Allergy status to other antibiotic agents; Z88.7 Allergy status to serum and vaccine; Z79.82 Long term (current) use of aspirin; Z79.899 Other long term (current) drug therapy
CPT/HCPCS: 99283

== ENCOUNTER 2019-03-06 09:10 | Inpatient (IN) | payer MEDICARE, BC ==
[2019-03-06] MEDS ORDERED: Sodium Chloride 0.9% 2.5 ML Syringe FLUSH PRN (09:34)
[2019-03-06] MEDS ORDERED: Sodium Chloride 0.9% 1,000 ML IV ONE (09:34)
[2019-03-06] MEDS ORDERED: Sodium Chloride 0.9% 10 ML Syringe FLUSH PRN (09:34)
[2019-03-06] MEDS ORDERED: Lidocaine 1% with EPINEPHrine 1:100,000 20 ML MDV INJECT ONE (09:36)
--- NOTE | 2019-03-06 09:58 | EDM.PDOC ---
ED HPI GENERAL MEDICAL PROBLEM - General Chief Complaint: ENT Problem Time Seen by Provider: 03/06/19 09:35 Source of Information: Reports: Patient History Limitations: Reports: No Limitations - History of Present Illness INITIAL COMMENTS - FREE TEXT/NARRATIVE: History of present illness: []Patient arrived by [place] bus with recurrent nosebleed. She was found to be hypotensive on arrival and and was brought back to a room. No active bleeding from her nares at this time her mouth is full of dried blood. She states it started bleeding during the night but she called for help but she states they do not come to her room anymore. Patient is complaining of severe body aches all over. Review of systems: As per history of present illness and below otherwise all systems reviewed and negative. Past medical history: As per history of present illness and as reviewed below otherwise noncontributory. Surgical history: As per history of present illness and as reviewed below otherwise noncontributory. Social history: No reported history of drug or alcohol abuse. Family history: As per history of present illness and as reviewed below otherwise noncontributory. Physical exam: General: Well developed, well nourished in NAD HEENT: Atraumatic, normocephalic, pupils reactive, negative for conjunctival pallor or scleral icterus, mucous membranes moist, throat clear, neck supple, nontender, trachea midline. Nares suctioned with Stevens tip, no sign of active bleeding, right nares is side bleeding and was packed with a Rhino Rocket. Lungs: Rhonchi to auscultation, breath sounds equal bilaterally, chest nontender. Heart: S1S2, regular, negative for clicks, rubs, or JVD. Abdomen: NABS, Soft, nondistended, nontender. Negative for masses or hepatosplenomegaly. Negative for costovertebral tenderness. Pelvis: Stable nontender. Genitourinary: Deferred. Rectal: Deferred. Extremities: Atraumatic, Neurovascular unremarkable. Neuro: Awake, . Exam nonfocal. Skin:warm and dry Diagnostics: CBC, type and screen, chemistry, coags, chest x-ray Therapeutics: IV fluids, blood ED Course: hypotensive Impression: anemia secondary to epistaxis. Prescriptions: none Plan: admit for blood transfusion, Pt is DNR Definitive disposition and diagnosis as appropriate pending reevaluation and review of above. - Related Data Allergies Allergy/AdvReac Type Severity Reaction Status Date / Time influenza virus vaccine, Allergy Weakness Verified 03/06/19 09:30 specific [influenza virus vacc,specific] levofloxacin [From Levaquin] Allergy Cannot Verified 03/06/19 09:30 Remember Home Meds: Home Meds Acetaminophen [Tylenol Arthritis Pain] 650 mg PO Q6H PRN 01/22/15 [History] Aspirin [Halfprin] 81 mg PO DAILY 01/22/15 [History] Bumetanide 1 mg PO BID 01/22/15 [History] Magnesium Hydroxide [Milk of Magnesia] 30 ml PO DAILY PRN 01/22/15 [History] Polyethylene Glycol 3350 [MiraLAX] 17 gm PO DAILY 01/22/15 [History] Sodium Chloride [Saline Nasal [place]] 1 spray NASBOTH QID PRN 01/22/15 [History] buPROPion [Wellbutrin XL] 150 mg PO BEDTIME 01/22/15 [History] Allopurinol [Zyloprim] 100 mg PO DAILY 12/22/17 [History] Bisacodyl [Dulcolax] 10 mg RC Q24H PRN 12/22/17 [History] Calcium Carbonate [Tums] 1,000 mg PO Q6H PRN 12/22/17 [History] Dextromethorphan HBr [Tussin Cough] 5 ml PO Q4H PRN 12/22/17 [History] Insulin Glargine,Hum.Rec.Anlog [Lantus Solostar] 25 unit SUBCUT BEDTIME [History] Linagliptin [Tradjenta] 5 mg PO DAILY 12/22/17 [History] Lutein/Min/Vit C/Vit E Acetate [Ocuvite Lutein] 1 cap PO DAILY 12/22/17 [History ] Ondansetron 4 mg PO Q8H PRN 12/22/17 [History] Sennosides [Senna] 1 tab PO BID 12/22/17 [History] diphenhydrAMINE [Benadryl] 50 mg PO BEDTIME 12/22/17 [History] Aloe Vera/Sodium Chloride [[place] Saline Nasal Gel] 1 applic NASBOTH .4-10 TIMES DAILY PRN 12/23/17 [History] Calcium Citrate/Vitamin D3 [Calcium Citrate - Vit D Tablet] 1 each PO BID [History] Propranolol HCl 80 mg PO DAILY 09/19/18 [History] Dextran 70/Hypromellose [Artificial Tears] 1 drop EYEBOTH TID #0 09/23/18 [Rx] Ertapenem [INVanz] 1 gm IM DAILY #3 vial 09/23/18 [Rx] Ertapenem [INVanz] 1 gm IM Q24H #3 vial 09/23/18 [Rx] Fexofenadine HCl [Vee Allergy] 180 mg PO DAILY #0 09/23/18 [Rx] HYDROmorphone [Dilaudid] 2 mg PO BEDTIME #10 tablet 09/23/18 [Rx] Hydrocodone/Acetaminophen [Hydrocodon-Acetaminophen 5-325] 5 - 325 mg PO Q6H PRN #10 tablet 09/23/18 [Rx] Nystatin 100,000 unit TOP Q8H PRN #1 bottle 09/23/18 [Rx] traZODone HCl [Trazodone HCl] 150 mg PO BEDTIME #15 tablet 09/23/18 [Rx] Past Medical History HEENT History: Reports: Allergic Rhinitis, Sinusitis Cardiovascular History: Reports: Hypertension Other Cardiovascular History: localize edema Respiratory History: Reports: Other (See Below) Other Respiratory History: 02 PRN 2liters/min for less than 90% saturation Gastrointestinal History: Reports: Chronic Constipation. Denies: Cirrhosis Genitourinary History: Reports: Chronic Renal Insuffiency, Retention, Urinary Other Genitourinary History: Chronic kidney dse Musculoskeletal History: Reports: Osteoarthritis, Other (See Below) Other Musculoskeletal History: weakness, osteomylitis Neurological History: Reports: Other (See Below). 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 ED EXAM, ENT - Physical Exam Exam: See Below (the history of present illness) Course - Vital Signs Last Recorded V/S: Last Vital Signs Temp 97.2 F 03/06/19 09:23 Pulse 77 03/06/19 10:00 Resp 18 03/06/19 09:23 BP 88/38 L 03/06/19 10:00 Pulse Ox 100 03/06/19 09:23 - Orders/Labs/Meds Orders: Active Orders 24 hr Category Date Time Status Patient Status [ADT] Stat ADT 03/06/19 10:03 Active RED BLOOD CELLS LP [BBK] Stat Lab 03/06/19 09:42 Results TYPE AND SCREEN [BBK] Stat Lab 03/06/19 09:42 Results Sodium Chloride 0.9% [Saline Flush] Med 03/06/19 09:34 Active 10 ml FLUSH ASDIRECTED PRN Sodium Chloride 0.9% [Saline Flush] Med 03/06/19 09:34 Active 2.5 ml FLUSH ASDIRECTED PRN Saline Lock Insert [OM.PC] Stat Oth 03/06/19 09:34 Ordered Transfuse Red Blood Cells [COMM] Stat Oth 03/06/19 09:55 Ordered Medication Orders Sodium Chloride (Saline Flush) 10 ml FLUSH ASDIRECTED PRN PRN Reason: Keep Vein Open Last Admin: 03/06/19 11:00 Dose: 10 ml Sodium Chloride (Saline Flush) 2.5 ml FLUSH ASDIRECTED PRN PRN Reason: Keep Vein Open Last Admin: 03/06/19 11:00 Dose: 2.5 ml Labs: Laboratory Tests 03/06/19 03/06/19 03/06/19 Range/Units 09:42 09:42 09:42 WBC 16.27 H (4.0-11.0) K/uL RBC 2.71 L (4.30-5.90) M/uL Hgb 7.6 L (12.0-16.0) g/dL Hct 24.2 L (36.0-46.0) % MCV 89.3 (80.0-98.0) fL MCH 28.0 (27.0-32.0) pg MCHC 31.4 (31.0-37.0) g/dL RDW Std Deviation 53.6 (28.0-62.0) fl RDW Coeff of Kary 17 H (11.0-15.0) % Plt Count 277 (150-400) K/uL MPV 9.10 (7.40-12.00) fL Neut % (Auto) 74.5 (48.0-80.0) % Lymph % (Auto) 16.8 (16.0-40.0) % Dawes % (Auto) 6.3 (0.0-15.0) % Eos % (Auto) 2.1 (0.0-7.0) % Baso % (Auto) 0.3 (0.0-1.5) % Neut # (Auto) 12.1 H (1.4-5.7) K/uL Lymph # (Auto) 2.7 H (0.6-2.4) K/uL Dawes # (Auto) 1.0 H (0.0-0.8) K/uL Eos # (Auto) 0.3 (0.0-0.7) K/uL Baso # (Auto) 0.1 (0.0-0.1) K/uL Nucleated RBC % 0.0 /100WBC Nucleated RBCs # 0 K/uL INR APTT (18.6-31.3) SEC Sodium 136 (136-145) mmol/L Potassium 5.1 (3.5-5.1) mmol/L Chloride 100 (98-107) mmol/L Carbon Dioxide 25.8 (21.0-32.0) mmol/L BUN 55 H (7.0-18.0) mg/dL Creatinine 2.1 H (0.6-1.0) mg/dL Est Cr Clr Drug Dosing 14.51 mL/min Estimated GFR (MDRD) 22.3 ml/min Glucose 211 H (74-106) mg/dL Calcium 9.7 (8.5-10.1) mg/dL Total Bilirubin 0.6 (0.2-1.0) mg/dL AST 13 L (15-37) IU/L ALT 17 (14-63) IU/L Alkaline Phosphatase 70 (46-116) U/L Total Protein 5.8 L (6.4-8.2) g/dL Albumin 1.9 L (3.4-5.0) g/dL Globulin 3.9 (2.6-4.0) g/dL Albumin/Globulin Ratio 0.5 L (0.9-1.6) Blood Type O POSITIVE Antibody Screen NEGATIVE Crossmatch See Detail 03/06/19 Range/Units 09:42 WBC (4.0-11.0) K/uL RBC (4.30-5.90) M/uL Hgb (12.0-16.0) g/dL Hct (36.0-46.0) % MCV (80.0-98.0) fL MCH (27.0-32.0) pg MCHC (31.0-37.0) g/dL RDW Std Deviation (28.0-62.0) fl RDW Coeff of Kary (11.0-15.0) % Plt Count (150-400) K/uL MPV (7.40-12.00) fL Neut % (Auto) (48.0-80.0) % Lymph % (Auto) (16.0-40.0) % Dawes % (Auto) (0.0-15.0) % Eos % (Auto) (0.0-7.0) % Baso % (Auto) (0.0-1.5) % Neut # (Auto) (1.4-5.7) K/uL Lymph # (Auto) (0.6-2.4) K/uL Dawes # (Auto) (0.0-0.8) K/uL Eos # (Auto) (0.0-0.7) K/uL Baso # (Auto) (0.0-0.1) K/uL Nucleated RBC % /100WBC Nucleated RBCs # K/uL INR 1.05 APTT 26.1 (18.6-31.3) SEC Sodium (136-145) mmol/L Potassium (3.5-5.1) mmol/L Chloride (98-107) mmol/L Carbon Dioxide (21.0-32.0) mmol/L BUN (7.0-18.0) mg/dL Creatinine (0.6-1.0) mg/dL Est Cr Clr Drug Dosing mL/min Estimated GFR (MDRD) ml/min Glucose (74-106) mg/dL Calcium (8.5-10.1) mg/dL Total Bilirubin (0.2-1.0) mg/dL AST (15-37) IU/L ALT (14-63) IU/L Alkaline Phosphatase (46-116) U/L Total Protein (6.4-8.2) g/dL Albumin (3.4-5.0) g/dL Globulin (2.6-4.0) g/dL Albumin/Globulin Ratio (0.9-1.6) Blood Type Antibody Screen Crossmatch Meds: Medications Generic Name Dose Route Start Last Admin Trade Name Freq PRN Reason Stop Dose Admin Sodium Chloride 10 ml 03/06/19 09:34 03/06/19 11:00 Saline Flush FLUSH 10 ml ASDIRECTED PRN Administration Keep Vein Open Sodium Chloride 2.5 ml 03/06/19 09:34 03/06/19 11:00 Saline Flush FLUSH 2.5 ml ASDIRECTED PRN Administration Keep Vein Open Discontinued Medications Generic Name Dose Route Start Last Admin Trade Name Neal PRN Reason Stop Dose Admin Fentanyl 50 mcg 03/06/19 10:55 03/06/19 10:59 Sublimaze IVPUSH 03/06/19 10:56 50 mcg ONETIME ONE Administration Fentanyl Confirm 03/06/19 10:55 Sublimaze Administered 03/06/19 10:56 Dose 100 mcg .ROUTE .STK-MED ONE Sodium Chloride 1,000 mls @ 999 mls/hr 03/06/19 09:34 03/06/19 09:39 Normal Saline IV 03/06/19 10:34 999 mls/hr .Bolus ONE Administration Lidocaine/Epinephrine 20 ml 03/06/19 09:36 03/06/19 09:39 Xylocaine 1% With Epinephrine 1:100,000 INJECT 03/06/19 09:37 20 ml ONETIME ONE Administration Departure - Departure Time of Disposition: 11:29 Disposition: Refer to Observation Condition: Good Clinical Impression: Epistaxis Anemia Qualifiers: Anemia type: unspecified type Qualified Code(s): D64.9 - Anemia, unspecified - Discharge Information - My Orders Last 24 Hours: My Active Orders 03/06/19 09:34 Sodium Chloride 0.9% [Saline Flush] 10 ml FLUSH ASDIRECTED PRN Sodium Chloride 0.9% [Saline Flush] 2.5 ml FLUSH ASDIRECTED PRN Saline Lock Insert [OM.PC] Stat 03/06/19 09:42 RED BLOOD CELLS LP [BBK] Stat TYPE AND SCREEN [BBK] Stat 03/06/19 09:55 Transfuse Red Blood Cells [COMM] Stat 03/06/19 10:03 Patient Status [ADT] Stat - Assessment/Plan Last 24 Hours: My Active Orders 03/06/19 09:34 Sodium Chloride 0.9% [Saline Flush] 10 ml FLUSH ASDIRECTED PRN Sodium Chloride 0.9% [Saline Flush] 2.5 ml FLUSH ASDIRECTED PRN Saline Lock Insert [OM.PC] Stat 03/06/19 09:42 RED BLOOD CELLS LP [BBK] Stat TYPE AND SCREEN [BBK] Stat 03/06/19 09:55 Transfuse Red Blood Cells [COMM] Stat 03/06/19 10:03 Patient Status [ADT] Stat
--- NOTE | 2019-03-06 10:44 | CR ---
INDICATION: Chest pain, shortness of breath TECHNIQUE: Chest 1 view. COMPARISON: None available FINDINGS: Evaluation is limited due to the AP portable technique. The heart is normal in size. The pulmonary vasculature is within normal limits. There is a streaky opacity at the right lung base with blunting of the the right costophrenic angle. This may represent a pleural effusion with mild atelectasis. IMPRESSION: Limited exam demonstrating a streaky opacity in the right base with blunting of the right costophrenic angle, suggesting a small right pleural effusion with atelectasis. Consider follow-up PA and lateral when patient`s condition permits. Dictated by Veronique Andrews MD @ 03/06/2019 10:42:56 AM Dictated by: Veronique Andrews MD @ 03/06/2019 10:43:28 (Electronically Signed)
[2019-03-06] MEDS ORDERED: fentaNYL 100 MCG/2 ML SDV IVPUSH ONE (10:55)
[2019-03-06] MEDS ORDERED: fentaNYL 100 MCG/2 ML SDV ONE (10:55)
[2019-03-06] MEDS ORDERED: Bisacodyl 10 MG Supp RECTAL PRN (11:48)
[2019-03-06] MEDS ORDERED: Calcium Carbonate 500 MG Tab.Chew PO PRN (11:48)
[2019-03-06] MEDS ORDERED: Nystatin Topical Powder 15 GM Bottle TOP PRN (11:48)
--- NOTE | 2019-03-06 12:03 | PCM.HP ---
H&P History of Present Illness - General Date of Service: 03/06/19 Admit Problem/Dx: Admission Diagnosis/Problem Admission Diagnosis/Problem Epistaxis Source of Information: Patient, Old Records History Limitations: Reports: No Limitations - History of Present Illness Initial Comments - Free Text/Narative: 88F hx of CHF, T2DM, CKD presented to the ER via [employer] bus for recurrent nosebleed found to have hypotension. Patient tells me that the bleed began last night. Rhino rocket from ER is in place. Currently, her only complaint is a sore on her buttocks making it uncomfortable for her to lay down. This has been a chronic issue for her. She denies any shortness of breath, dizziness, nausea or vomiting, or fever. She would like to drink something. - Related Data Allergies/Adverse Reactions: Allergies Allergy/AdvReac Type Severity Reaction Status Date / Time influenza virus vaccine, Allergy Weakness Verified 03/06/19 09:30 specific [influenza virus vacc,specific] levofloxacin [From Levaquin] Allergy Cannot Verified 03/06/19 09:30 Remember Home Medications: Home Meds Acetaminophen [Tylenol Arthritis Pain] 650 mg PO Q6H PRN 01/22/15 [History] Aspirin [Halfprin] 81 mg PO DAILY 01/22/15 [History] Bumetanide 1 mg PO BID 01/22/15 [History] Magnesium Hydroxide [Milk of Magnesia] 30 ml PO DAILY PRN 01/22/15 [History] Polyethylene Glycol 3350 [MiraLAX] 17 gm PO DAILY 01/22/15 [History] Sodium Chloride [Saline Nasal Camilla] 1 spray NASBOTH QID PRN 01/22/15 [History] buPROPion [Wellbutrin XL] 150 mg PO BEDTIME 01/22/15 [History] Allopurinol [Zyloprim] 100 mg PO DAILY 12/22/17 [History] Bisacodyl [Dulcolax] 10 mg RC Q24H PRN 12/22/17 [History] Calcium Carbonate [Tums] 1,000 mg PO Q6H PRN 12/22/17 [History] Dextromethorphan HBr [Tussin Cough] 5 ml PO Q4H PRN 12/22/17 [History] Insulin Glargine,Hum.Rec.Anlog [Lantus Solostar] 25 unit SUBCUT BEDTIME [History] Linagliptin [Tradjenta] 5 mg PO DAILY 12/22/17 [History] Lutein/Min/Vit C/Vit E Acetate [Ocuvite Lutein] 1 cap PO DAILY 12/22/17 [History ] Ondansetron 4 mg PO Q8H PRN 12/22/17 [History] Sennosides [Senna] 1 tab PO BID 12/22/17 [History] diphenhydrAMINE [Benadryl] 50 mg PO BEDTIME 12/22/17 [History] Aloe Vera/Sodium Chloride [Leeds Saline Nasal Gel] 1 applic NASBOTH .4-10 TIMES DAILY PRN 12/23/17 [History] Calcium Citrate/Vitamin D3 [Calcium Citrate - Vit D Tablet] 1 each PO BID [History] Propranolol HCl 80 mg PO DAILY 09/19/18 [History] Dextran 70/Hypromellose [Artificial Tears] 1 drop EYEBOTH TID #0 09/23/18 [Rx] Ertapenem [INVanz] 1 gm IM DAILY #3 vial 09/23/18 [Rx] Ertapenem [INVanz] 1 gm IM Q24H #3 vial 09/23/18 [Rx] Fexofenadine HCl [Vee Allergy] 180 mg PO DAILY #0 09/23/18 [Rx] HYDROmorphone [Dilaudid] 2 mg PO BEDTIME #10 tablet 09/23/18 [Rx] Hydrocodone/Acetaminophen [Hydrocodon-Acetaminophen 5-325] 5 - 325 mg PO Q6H PRN #10 tablet 09/23/18 [Rx] Nystatin 100,000 unit TOP Q8H PRN #1 bottle 09/23/18 [Rx] traZODone HCl [Trazodone HCl] 150 mg PO BEDTIME #15 tablet 09/23/18 [Rx] Past Medical History HEENT History: Reports: Allergic Rhinitis, Sinusitis Cardiovascular History: Reports: Hypertension Other Cardiovascular History: localize edema Respiratory History: Reports: Other (See Below) Other Respiratory History: 02 PRN 2liters/min for less than 90% saturation Gastrointestinal History: Reports: Chronic Constipation. 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 Hematologic History: Reports: Blood Transfusion(s) Immunologic History: Reports: None Oncologic (Cancer) History: Reports: None Dermatologic History: Reports: None - Infectious Disease History Infectious Disease History: Reports: Chicken Pox, Measles, Mumps - Past Surgical History GI Surgical History: Reports: None Musculoskeletal Surgical History: Reports: Knee Replacement Social & Family History - Family History Family Medical History: Noncontributory - Tobacco Use Smoking Status *Q: Never Smoker Second Hand Smoke Exposure: No - Caffeine Use Caffeine Use: Reports: None - Recreational Drug Use Recreational Drug Use: No H&P Review of Systems - Review of Systems: Review Of Systems: ROS reveals no pertinent complaints other than HPI. Exam - Exam Exam: See Below - Vital Signs Vital Signs: Last Vital Signs Temp 36.2 C 03/06/19 09:23 Pulse 77 03/06/19 10:00 Resp 18 03/06/19 09:23 BP 88/38 L 03/06/19 10:00 Pulse Ox 100 03/06/19 09:23 Weight: 93.44 kg - Exam General: Alert, Oriented, 4 HEENT: Other (Right nare rhino rocket in place. Dried up blood on lips, teeth. No active bleeding. No pharyngeal erythema/exudate. Dry oral mucosa) Lungs: Clear to Auscultation, Normal Respiratory Effort Cardiovascular: Regular Rate, Regular Rhythm GI/Abdominal Exam: Normal Bowel Sounds, No Organomegaly, No Distention, No Mass , Other (Periumbilical tenderness to palpation. ) Extremities: Normal Inspection, Normal Range of Motion, Non-Tender, No Pedal Edema, Normal Capillary Refill Peripheral Pulses: 2+: Dorsalis Pedis (L), Dorsalis Pedis (R) Psychiatric: Alert, Normal Affect, Normal Mood - Patient Data Lab Results Last 24 hrs: Laboratory Results - last 24 hr 03/06/19 03/06/19 03/06/19 Range/Units 09:42 09:42 09:42 WBC 16.27 H (4.0-11.0) K/uL RBC 2.71 L (4.30-5.90) M/uL Hgb 7.6 L (12.0-16.0) g/dL Hct 24.2 L (36.0-46.0) % MCV 89.3 (80.0-98.0) fL MCH 28.0 (27.0-32.0) pg MCHC 31.4 (31.0-37.0) g/dL RDW Std Deviation 53.6 (28.0-62.0) fl RDW Coeff of Kary 17 H (11.0-15.0) % Plt Count 277 (150-400) K/uL MPV 9.10 (7.40-12.00) fL Neut % (Auto) 74.5 (48.0-80.0) % Lymph % (Auto) 16.8 (16.0-40.0) % Armstrong % (Auto) 6.3 (0.0-15.0) % Eos % (Auto) 2.1 (0.0-7.0) % Baso % (Auto) 0.3 (0.0-1.5) % Neut # (Auto) 12.1 H (1.4-5.7) K/uL Lymph # (Auto) 2.7 H (0.6-2.4) K/uL Armstrong # (Auto) 1.0 H (0.0-0.8) K/uL Eos # (Auto) 0.3 (0.0-0.7) K/uL Baso # (Auto) 0.1 (0.0-0.1) K/uL Nucleated RBC % 0.0 /100WBC Nucleated RBCs # 0 K/uL INR APTT (18.6-31.3) SEC Sodium 136 (136-145) mmol/L Potassium 5.1 (3.5-5.1) mmol/L Chloride 100 (98-107) mmol/L Carbon Dioxide 25.8 (21.0-32.0) mmol/L BUN 55 H (7.0-18.0) mg/dL Creatinine 2.1 H (0.6-1.0) mg/dL Est Cr Clr Drug Dosing 14.51 mL/min Estimated GFR (MDRD) 22.3 ml/min Glucose 211 H (74-106) mg/dL Calcium 9.7 (8.5-10.1) mg/dL Total Bilirubin 0.6 (0.2-1.0) mg/dL AST 13 L (15-37) IU/L ALT 17 (14-63) IU/L Alkaline Phosphatase 70 (46-116) U/L Total Protein 5.8 L (6.4-8.2) g/dL Albumin 1.9 L (3.4-5.0) g/dL Globulin 3.9 (2.6-4.0) g/dL Albumin/Globulin Ratio 0.5 L (0.9-1.6) Blood Type O POSITIVE Antibody Screen NEGATIVE Crossmatch See Detail 03/06/19 Range/Units 09:42 WBC (4.0-11.0) K/uL RBC (4.30-5.90) M/uL Hgb (12.0-16.0) g/dL Hct (36.0-46.0) % MCV (80.0-98.0) fL MCH (27.0-32.0) pg MCHC (31.0-37.0) g/dL RDW Std Deviation (28.0-62.0) fl RDW Coeff of Kary (11.0-15.0) % Plt Count (150-400) K/uL MPV (7.40-12.00) fL Neut % (Auto) (48.0-80.0) % Lymph % (Auto) (16.0-40.0) % Armstrong % (Auto) (0.0-15.0) % Eos % (Auto) (0.0-7.0) % Baso % (Auto) (0.0-1.5) % Neut # (Auto) (1.4-5.7) K/uL Lymph # (Auto) (0.6-2.4) K/uL Armstrong # (Auto) (0.0-0.8) K/uL Eos # (Auto) (0.0-0.7) K/uL Baso # (Auto) (0.0-0.1) K/uL Nucleated RBC % /100WBC Nucleated RBCs # K/uL INR 1.05 APTT 26.1 (18.6-31.3) SEC Sodium (136-145) mmol/L Potassium (3.5-5.1) mmol/L Chloride (98-107) mmol/L Carbon Dioxide (21.0-32.0) mmol/L BUN (7.0-18.0) mg/dL Creatinine (0.6-1.0) mg/dL Est Cr Clr Drug Dosing mL/min Estimated GFR (MDRD) ml/min Glucose (74-106) mg/dL Calcium (8.5-10.1) mg/dL Total Bilirubin (0.2-1.0) mg/dL AST (15-37) IU/L ALT (14-63) IU/L Alkaline Phosphatase (46-116) U/L Total Protein (6.4-8.2) g/dL Albumin (3.4-5.0) g/dL Globulin (2.6-4.0) g/dL Albumin/Globulin Ratio (0.9-1.6) Blood Type Antibody Screen Crossmatch Result Diagrams: 03/06/19 09:42 03/06/19 09:42 Problem List Initiated/Reviewed/Updated: Yes Orders Last 24hrs: Active Orders 24 hr Category Date Time Status Patient Status [ADT] Stat ADT 03/06/19 10:03 Active Antiembolic Devices [RC] PER UNIT ROUTINE Care 03/06/19 10:56 Active Cardiac Monitoring [RC] CONTINUOUS Care 03/06/19 10:55 Active Communication Order [RC] ROUTINE Care 03/06/19 11:15 Active Oxygen Therapy [RC] PRN Care 03/06/19 10:55 Active Up With Assistance [RC] ASDIRECTED Care 03/06/19 10:55 Active VTE/DVT Education [RC] PER UNIT ROUTINE Care 03/06/19 10:55 Active Vital Signs [RC] Q4H Care 03/06/19 10:55 Active Regular Diet [DIET] Diet 03/06/19 Lunch Active BASIC METABOLIC PANEL,BMP [CHEM] AM Lab 03/07/19 05:11 Ordered CBC W/O DIFF,HEMOGRAM [HEME] AM Lab 03/07/19 05:11 Ordered RED BLOOD CELLS LP [BBK] Stat Lab 03/06/19 09:42 Results TYPE AND SCREEN [BBK] Stat Lab 03/06/19 09:42 Results UA W/KAMAR RFLX IF INDICATED [URIN] Stat Lab 03/06/19 10:57 Ordered Acetaminophen Med 03/06/19 11:48 Ordered 650 mg PO Q6H PRN Acetaminophen/HYDROcodone Med 03/06/19 11:48 Ordered 5 - 325 mg PO Q6H PRN Allopurinol [Zyloprim] Med 03/07/19 09:00 Ordered 100 mg PO DAILY Bisacodyl [Dulcolax] Med 03/06/19 11:48 Ordered 10 mg RECTAL Q24H PRN Calcium Carbonate Med 03/06/19 11:48 Ordered 1,000 mg PO Q6H PRN HYDROmorphone [Dilaudid] Med 03/06/19 21:00 Ordered 2 mg PO BEDTIME Insulin Glarg,Human.Rec.Analog [LantUS Solostar] Med 03/06/19 21:00 Ordered 25 units SUBCUT BEDTIME Linagliptin [Tradjenta] Med 03/07/19 09:00 Ordered 5 mg PO DAILY Nystatin [Nystop] Med 03/06/19 11:48 Ordered 100,000 unit TOP Q8H PRN Polyethylene Glycol 3350 [MiraLAX] Med 03/07/19 09:00 Ordered 17 gm PO DAILY Sodium Chloride 0.9% [Saline Flush] Med 03/06/19 09:34 Active 10 ml FLUSH ASDIRECTED PRN Sodium Chloride 0.9% [Saline Flush] Med 03/06/19 09:34 Active 2.5 ml FLUSH ASDIRECTED PRN buPROPion [Wellbutrin XL] Med 03/06/19 21:00 Ordered 150 mg PO BEDTIME diphenhydrAMINE [Benadryl] Med 03/06/19 21:00 Ordered 50 mg PO BEDTIME traZODone HCl [Trazodone HCl] Med 03/06/19 21:00 Ordered 150 mg PO BEDTIME Saline Lock Insert [OM.PC] Stat Oth 03/06/19 09:34 Ordered Sequential Compression Device [OM.PC] Per Unit Routine Oth 03/06/19 10:55 Ordered Transfuse Red Blood Cells [COMM] Stat Oth 03/06/19 09:55 Ordered Resuscitation Status Routine Resus Stat 03/06/19 10:55 Ordered Medication Orders Allopurinol (Zyloprim) 100 mg PO DAILY [place] Bisacodyl (Dulcolax) 10 mg RECTAL Q24H PRN PRN Reason: Constipation Bupropion HCl (Wellbutrin Xl) 150 mg PO BEDTIME [place] Diphenhydramine HCl (Benadryl) 50 mg PO BEDTIME [place] Hydromorphone HCl (Dilaudid) 2 mg PO BEDTIME [place] Insulin Glargine (Lantus Solostar) 25 units SUBCUT BEDTIME [place] Non-Formulary Medication (Acetaminophen) 650 mg PO Q6H PRN PRN Reason: Pain Non-Formulary Medication (Acetaminophen/Hydrocodone) 5 - 325 mg PO Q6H PRN PRN Reason: Pain Non-Formulary Medication (Calcium Carbonate) 1,000 mg PO Q6H PRN PRN Reason: Heartburn Non-Formulary Medication (Linagliptin [Tradjenta]) 5 mg PO DAILY [place] Non-Formulary Medication (Trazodone Hcl [Trazodone Hcl]) 150 mg PO BEDTIME [place] Nystatin (Nystop) gm TOP Q8H PRN PRN Reason: Rash Polyethylene Glycol (Miralax) 17 gm PO DAILY [place] Sodium Chloride (Saline Flush) 10 ml FLUSH ASDIRECTED PRN PRN Reason: Keep Vein Open Last Admin: 03/06/19 11:00 Dose: 10 ml Sodium Chloride (Saline Flush) 2.5 ml FLUSH ASDIRECTED PRN PRN Reason: Keep Vein Open Last Admin: 03/06/19 11:00 Dose: 2.5 ml Assessment/Plan Comment:: Assessment: #1. Recurrent epistaxis #2. Leukocytosis #3. Hypotension #4. Normocytic anemia #5. Trace pleural effusion #6. Sacral abrasion #7. Abdominal pain Plan: #1. Admit for observation. #2. PRBC 2 units. Recheck H/H after first unit. #3. Hold off any more fluid resuscitation beyond PRBC given history of CHF. Will reassess fluid status after/during blood transfusion and proceed accordingly #4. Obtain UA #5. If UA is insignificant, will consider getting a CT Abdomen pelvis in search of source of leukocytosis #6. CBC, BMP tomorrow AM
[2019-03-06] MEDS: Acetaminophen 325 MG Tab PO PRN (12:55)
[2019-03-06] MEDS ORDERED: cefTRIAXone 1 GM in Premix Bag 1 BAG IV ONE (15:08)
[2019-03-06] MEDS: Insulin Aspart 100 Units/ML 3 ML Pen SUBCUT SCH (17:15)
[2019-03-06] MEDS ORDERED: Benzonatate 100 MG Cap PO PRN (18:53)
[2019-03-06] MEDS: diphenhydrAMINE 25 MG Cap PO SCH (22:01)
[2019-03-06] MEDS: Nystatin Topical Powder 15 GM Bottle TOP SCH (22:02)
[2019-03-06] MEDS: buPROPion 150 MG Tab.ER PO SCH (22:02)
[2019-03-06] MEDS: traZODone 50 MG Tab PO SCH (22:02)
[2019-03-06] MEDS: Insulin Glargine,Human Rec. Analog 100 Units/ML 3 ML Pen SUBCUT SCH (22:03)
[2019-03-06] MEDS: HYDROmorphone 2 MG Tab PO SCH (22:08)
[2019-03-07] MEDS: Allopurinol 100 MG Tab PO SCH ×2 (09:48→10:39)
[2019-03-07] MEDS: Polyethylene Glycol 3350 Powder 17 GM Packet PO SCH (09:48)
[2019-03-07] MEDS: Acetaminophen 325 MG Tab PO PRN ×2 (09:48→21:48)
[2019-03-07] MEDS: Insulin Aspart 100 Units/ML 3 ML Pen SUBCUT SCH ×3 (09:48→19:02)
[2019-03-07] MEDS: Nystatin Topical Powder 15 GM Bottle TOP SCH ×2 (09:49→21:00)
--- NOTE | 2019-03-07 12:26 | PCM.PN ---
- General Info Date of Service: 03/07/19 Subjective Update: Feels better today. Feels discomfort from the rhino rocket, but has no other complaints. - Review of Systems General: Reports: Other (see hpi) - Patient Data Vitals - Most Recent: Last Vital Signs Temp 36.6 C 03/07/19 04:00 Pulse 68 03/07/19 06:00 Resp 12 03/07/19 06:00 BP 131/34 L 03/07/19 06:00 Pulse Ox 99 03/07/19 06:00 Weight - Most Recent: 90 kg I&O - Last 24 Hours: Intake & Output 03/06/19 03/07/19 03/07/19 22:59 06:59 14:59 Intake Total 1956 300 Output Total 0 Balance 1956 300 Lab Results Last 24 Hours: Laboratory Results - last 24 hr 03/06/19 03/06/19 03/06/19 Range/Units 09:42 09:42 09:42 WBC 16.27 H (4.0-11.0) K/uL RBC 2.71 L (4.30-5.90) M/uL Hgb 7.6 L (12.0-16.0) g/dL Hct 24.2 L (36.0-46.0) % MCV 89.3 (80.0-98.0) fL MCH 28.0 (27.0-32.0) pg MCHC 31.4 (31.0-37.0) g/dL RDW Std Deviation 53.6 (28.0-62.0) fl RDW Coeff of Kary 17 H (11.0-15.0) % Plt Count 277 (150-400) K/uL MPV 9.10 (7.40-12.00) fL Neut % (Auto) 74.5 (48.0-80.0) % Lymph % (Auto) 16.8 (16.0-40.0) % [place] % (Auto) 6.3 (0.0-15.0) % Eos % (Auto) 2.1 (0.0-7.0) % Baso % (Auto) 0.3 (0.0-1.5) % Neut # (Auto) 12.1 H (1.4-5.7) K/uL Lymph # (Auto) 2.7 H (0.6-2.4) K/uL [place] # (Auto) 1.0 H (0.0-0.8) K/uL Eos # (Auto) 0.3 (0.0-0.7) K/uL Baso # (Auto) 0.1 (0.0-0.1) K/uL Nucleated RBC % 0.0 /100WBC Nucleated RBCs # 0 K/uL Lactate (0.20-2.00) mmol/L Sodium 136 (136-145) mmol/L Potassium 5.1 (3.5-5.1) mmol/L Chloride 100 (98-107) mmol/L Carbon Dioxide 25.8 (21.0-32.0) mmol/L BUN 55 H (7.0-18.0) mg/dL Creatinine 2.1 H (0.6-1.0) mg/dL Est Cr Clr Drug Dosing 14.51 mL/min Estimated GFR (MDRD) 22.3 ml/min Glucose 211 H (74-106) mg/dL POC Glucose (60-110) mg/dL Calcium 9.7 (8.5-10.1) mg/dL Total Bilirubin 0.6 (0.2-1.0) mg/dL AST 13 L (15-37) IU/L ALT 17 (14-63) IU/L Alkaline Phosphatase 70 (46-116) U/L B-Natriuretic Peptide (<100) PG/ML Total Protein 5.8 L (6.4-8.2) g/dL Albumin 1.9 L (3.4-5.0) g/dL Globulin 3.9 (2.6-4.0) g/dL Albumin/Globulin Ratio 0.5 L (0.9-1.6) Urine Color Urine Appearance Urine pH (5.0-8.0) Ur Specific [place] (1.001-1.035) Urine Protein (NEGATIVE) mg/dL Urine Glucose (UA) (NEGATIVE) mg/dL Urine Ketones (NEGATIVE) mg/dL Urine Occult Blood (NEGATIVE) Urine Nitrite (NEGATIVE) Urine Bilirubin (NEGATIVE) Urine Urobilinogen (<2.0) EU/dL Ur Leukocyte Esterase (NEGATIVE) Urine RBC (0-2/HPF) Urine WBC (0-5/HPF) Ur Epithelial Cells (NONE-FEW) Urine Bacteria (NEGATIVE) Blood Type O POSITIVE Antibody Screen NEGATIVE Crossmatch See Detail 03/06/19 03/06/19 03/06/19 Range/Units 15:30 17:09 19:35 WBC (4.0-11.0) K/uL RBC (4.30-5.90) M/uL Hgb (12.0-16.0) g/dL Hct (36.0-46.0) % MCV (80.0-98.0) fL MCH (27.0-32.0) pg MCHC (31.0-37.0) g/dL RDW Std Deviation (28.0-62.0) fl RDW Coeff of Kary (11.0-15.0) % Plt Count (150-400) K/uL MPV (7.40-12.00) fL Neut % (Auto) (48.0-80.0) % Lymph % (Auto) (16.0-40.0) % [place] % (Auto) (0.0-15.0) % Eos % (Auto) (0.0-7.0) % Baso % (Auto) (0.0-1.5) % Neut # (Auto) (1.4-5.7) K/uL Lymph # (Auto) (0.6-2.4) K/uL [place] # (Auto) (0.0-0.8) K/uL Eos # (Auto) (0.0-0.7) K/uL Baso # (Auto) (0.0-0.1) K/uL Nucleated RBC % /100WBC Nucleated RBCs # K/uL Lactate 1.6 (0.20-2.00) mmol/L Sodium (136-145) mmol/L Potassium (3.5-5.1) mmol/L Chloride (98-107) mmol/L Carbon Dioxide (21.0-32.0) mmol/L BUN (7.0-18.0) mg/dL Creatinine (0.6-1.0) mg/dL Est Cr Clr Drug Dosing mL/min Estimated GFR (MDRD) ml/min Glucose (74-106) mg/dL POC Glucose 149 H (60-110) mg/dL Calcium (8.5-10.1) mg/dL Total Bilirubin (0.2-1.0) mg/dL AST (15-37) IU/L ALT (14-63) IU/L Alkaline Phosphatase (46-116) U/L B-Natriuretic Peptide (<100) PG/ML Total Protein (6.4-8.2) g/dL Albumin (3.4-5.0) g/dL Globulin (2.6-4.0) g/dL Albumin/Globulin Ratio (0.9-1.6) Urine Color YELLOW Urine Appearance CLEAR Urine pH 6.0 (5.0-8.0) Ur Specific [place] 1.010 (1.001-1.035) Urine Protein TRACE H (NEGATIVE) mg/dL Urine Glucose (UA) NEGATIVE (NEGATIVE) mg/dL Urine Ketones NEGATIVE (NEGATIVE) mg/dL Urine Occult Blood SMALL H (NEGATIVE) Urine Nitrite NEGATIVE (NEGATIVE) Urine Bilirubin NEGATIVE (NEGATIVE) Urine Urobilinogen 0.2 (<2.0) EU/dL Ur Leukocyte Esterase LARGE H (NEGATIVE) Urine RBC 0-2 (0-2/HPF) Urine WBC TO NUMEROUS TO COUNT H (0-5/HPF) Ur Epithelial Cells FEW (NONE-FEW) Urine Bacteria 3+ H (NEGATIVE) Blood Type Antibody Screen Crossmatch 03/06/19 03/06/19 03/06/19 Range/Units 21:50 21:50 22:06 WBC (4.0-11.0) K/uL RBC (4.30-5.90) M/uL Hgb 10.0 L (12.0-16.0) g/dL Hct 30.1 L (36.0-46.0) % MCV (80.0-98.0) fL MCH (27.0-32.0) pg MCHC (31.0-37.0) g/dL RDW Std Deviation (28.0-62.0) fl RDW Coeff of Kary (11.0-15.0) % Plt Count (150-400) K/uL MPV (7.40-12.00) fL Neut % (Auto) (48.0-80.0) % Lymph % (Auto) (16.0-40.0) % [place] % (Auto) (0.0-15.0) % Eos % (Auto) (0.0-7.0) % Baso % (Auto) (0.0-1.5) % Neut # (Auto) (1.4-5.7) K/uL Lymph # (Auto) (0.6-2.4) K/uL [place] # (Auto) (0.0-0.8) K/uL Eos # (Auto) (0.0-0.7) K/uL Baso # (Auto) (0.0-0.1) K/uL Nucleated RBC % /100WBC Nucleated RBCs # K/uL Lactate (0.20-2.00) mmol/L Sodium (136-145) mmol/L Potassium (3.5-5.1) mmol/L Chloride (98-107) mmol/L Carbon Dioxide (21.0-32.0) mmol/L BUN (7.0-18.0) mg/dL Creatinine (0.6-1.0) mg/dL Est Cr Clr Drug Dosing mL/min Estimated GFR (MDRD) ml/min Glucose (74-106) mg/dL POC Glucose 136 H (60-110) mg/dL Calcium (8.5-10.1) mg/dL Total Bilirubin (0.2-1.0) mg/dL AST (15-37) IU/L ALT (14-63) IU/L Alkaline Phosphatase (46-116) U/L B-Natriuretic Peptide 192 H (<100) PG/ML Total Protein (6.4-8.2) g/dL Albumin (3.4-5.0) g/dL Globulin (2.6-4.0) g/dL Albumin/Globulin Ratio (0.9-1.6) Urine Color Urine Appearance Urine pH (5.0-8.0) Ur Specific [place] (1.001-1.035) Urine Protein (NEGATIVE) mg/dL Urine Glucose (UA) (NEGATIVE) mg/dL Urine Ketones (NEGATIVE) mg/dL Urine Occult Blood (NEGATIVE) Urine Nitrite (NEGATIVE) Urine Bilirubin (NEGATIVE) Urine Urobilinogen (<2.0) EU/dL Ur Leukocyte Esterase (NEGATIVE) Urine RBC (0-2/HPF) Urine WBC (0-5/HPF) Ur Epithelial Cells (NONE-FEW) Urine Bacteria (NEGATIVE) Blood Type Antibody Screen Crossmatch 03/07/19 03/07/19 03/07/19 Range/Units 00:32 05:33 05:33 WBC 8.94 (4.0-11.0) K/uL RBC 3.21 L (4.30-5.90) M/uL Hgb 9.3 L (12.0-16.0) g/dL Hct 28.0 L (36.0-46.0) % MCV 87.2 (80.0-98.0) fL MCH 29.0 (27.0-32.0) pg MCHC 33.2 (31.0-37.0) g/dL RDW Std Deviation 53.5 (28.0-62.0) fl RDW Coeff of Kary 17 H (11.0-15.0) % Plt Count 153 (150-400) K/uL MPV 9.30 (7.40-12.00) fL Neut % (Auto) (48.0-80.0) % Lymph % (Auto) (16.0-40.0) % [place] % (Auto) (0.0-15.0) % Eos % (Auto) (0.0-7.0) % Baso % (Auto) (0.0-1.5) % Neut # (Auto) (1.4-5.7) K/uL Lymph # (Auto) (0.6-2.4) K/uL [place] # (Auto) (0.0-0.8) K/uL Eos # (Auto) (0.0-0.7) K/uL Baso # (Auto) (0.0-0.1) K/uL Nucleated RBC % 0.0 /100WBC Nucleated RBCs # 0 K/uL Lactate (0.20-2.00) mmol/L Sodium 139 (136-145) mmol/L Potassium 4.1 (3.5-5.1) mmol/L Chloride 104 (98-107) mmol/L Carbon Dioxide 28.2 (21.0-32.0) mmol/L BUN 70 H (7.0-18.0) mg/dL Creatinine 2.0 H (0.6-1.0) mg/dL Est Cr Clr Drug Dosing 16.70 mL/min Estimated GFR (MDRD) 23.6 ml/min Glucose 106 (74-106) mg/dL POC Glucose 123 H (60-110) mg/dL Calcium 9.2 (8.5-10.1) mg/dL Total Bilirubin (0.2-1.0) mg/dL AST (15-37) IU/L ALT (14-63) IU/L Alkaline Phosphatase (46-116) U/L B-Natriuretic Peptide (<100) PG/ML Total Protein (6.4-8.2) g/dL Albumin (3.4-5.0) g/dL Globulin (2.6-4.0) g/dL Albumin/Globulin Ratio (0.9-1.6) Urine Color Urine Appearance Urine pH (5.0-8.0) Ur Specific [place] (1.001-1.035) Urine Protein (NEGATIVE) mg/dL Urine Glucose (UA) (NEGATIVE) mg/dL Urine Ketones (NEGATIVE) mg/dL Urine Occult Blood (NEGATIVE) Urine Nitrite (NEGATIVE) Urine Bilirubin (NEGATIVE) Urine Urobilinogen (<2.0) EU/dL Ur Leukocyte Esterase (NEGATIVE) Urine RBC (0-2/HPF) Urine WBC (0-5/HPF) Ur Epithelial Cells (NONE-FEW) Urine Bacteria (NEGATIVE) Blood Type Antibody Screen Crossmatch 03/07/19 Range/Units 09:44 WBC (4.0-11.0) K/uL RBC (4.30-5.90) M/uL Hgb (12.0-16.0) g/dL Hct (36.0-46.0) % MCV (80.0-98.0) fL MCH (27.0-32.0) pg MCHC (31.0-37.0) g/dL RDW Std Deviation (28.0-62.0) fl RDW Coeff of Kary (11.0-15.0) % Plt Count (150-400) K/uL MPV (7.40-12.00) fL Neut % (Auto) (48.0-80.0) % Lymph % (Auto) (16.0-40.0) % [place] % (Auto) (0.0-15.0) % Eos % (Auto) (0.0-7.0) % Baso % (Auto) (0.0-1.5) % Neut # (Auto) (1.4-5.7) K/uL Lymph # (Auto) (0.6-2.4) K/uL [place] # (Auto) (0.0-0.8) K/uL Eos # (Auto) (0.0-0.7) K/uL Baso # (Auto) (0.0-0.1) K/uL Nucleated RBC % /100WBC Nucleated RBCs # K/uL Lactate (0.20-2.00) mmol/L Sodium (136-145) mmol/L Potassium (3.5-5.1) mmol/L Chloride (98-107) mmol/L Carbon Dioxide (21.0-32.0) mmol/L BUN (7.0-18.0) mg/dL Creatinine (0.6-1.0) mg/dL Est Cr Clr Drug Dosing mL/min Estimated GFR (MDRD) ml/min Glucose (74-106) mg/dL POC Glucose 104 (60-110) mg/dL Calcium (8.5-10.1) mg/dL Total Bilirubin (0.2-1.0) mg/dL AST (15-37) IU/L ALT (14-63) IU/L Alkaline Phosphatase (46-116) U/L B-Natriuretic Peptide (<100) PG/ML Total Protein (6.4-8.2) g/dL Albumin (3.4-5.0) g/dL Globulin (2.6-4.0) g/dL Albumin/Globulin Ratio (0.9-1.6) Urine Color Urine Appearance Urine pH (5.0-8.0) Ur Specific [place] (1.001-1.035) Urine Protein (NEGATIVE) mg/dL Urine Glucose (UA) (NEGATIVE) mg/dL Urine Ketones (NEGATIVE) mg/dL Urine Occult Blood (NEGATIVE) Urine Nitrite (NEGATIVE) Urine Bilirubin (NEGATIVE) Urine Urobilinogen (<2.0) EU/dL Ur Leukocyte Esterase (NEGATIVE) Urine RBC (0-2/HPF) Urine WBC (0-5/HPF) Ur Epithelial Cells (NONE-FEW) Urine Bacteria (NEGATIVE) Blood Type Antibody Screen Crossmatch Vishnu Results Last 24 Hours: Microbiology 03/06/19 15:00 Anaerobic Blood Culture - Final Blood - Venous - Lab Draw Med Orders - Current: Current Medications Acetaminophen (Tylenol) 650 mg PO Q6H PRN PRN Reason: Pain Last Admin: 03/07/19 09:48 Dose: 650 mg Hydrocodone Bitart/Acetaminophen ([place] 325-10 Mg) 1 tab PO Q6H PRN PRN Reason: Pain Allopurinol (Zyloprim) 100 mg PO DAILY COUNTS INCLUDE 234 BEDS AT THE [facility] Last Admin: 03/07/19 10:39 Dose: Not Given Benzonatate (Tessalon Perles) 100 mg PO TID PRN PRN Reason: Cough Bisacodyl (Dulcolax) 10 mg RECTAL Q24H PRN PRN Reason: Constipation Bupropion HCl (Wellbutrin Xl) 150 mg PO BEDTIME COUNTS INCLUDE 234 BEDS AT THE [facility] Last Admin: 03/06/19 22:02 Dose: 150 mg Calcium Carbonate/Glycine (Tums) 1,000 mg PO Q6H PRN PRN Reason: Heartburn Diphenhydramine HCl (Benadryl) 50 mg PO BEDTIME COUNTS INCLUDE 234 BEDS AT THE [facility] Last Admin: 03/06/19 22:01 Dose: 50 mg Hydromorphone HCl (Dilaudid) 2 mg PO BEDTIME COUNTS INCLUDE 234 BEDS AT THE [facility] Last Admin: 03/06/19 22:08 Dose: 2 mg Ceftriaxone Sodium/Dextrose 1 (gm/ Premix) 50 mls @ 100 mls/hr IV Q24H COUNTS INCLUDE 234 BEDS AT THE [facility] Insulin Aspart (Novolog) 0 unit SUBCUT TIDAC COUNTS INCLUDE 234 BEDS AT THE [facility]; Protocol Last Admin: 03/07/19 09:48 Dose: Not Given Insulin Glargine (Lantus Solostar) 25 units SUBCUT BEDTIME COUNTS INCLUDE 234 BEDS AT THE [facility] Last Admin: 03/06/19 22:03 Dose: 25 unit Nystatin (Nystop) 0 gm TOP BID COUNTS INCLUDE 234 BEDS AT THE [facility] Last Admin: 03/07/19 09:49 Dose: 1 applic Linagliptin [ (Tradjenta] 5 Mg) 1 each PO DAILY COUNTS INCLUDE 234 BEDS AT THE [facility] Last Admin: 03/07/19 09:50 Dose: Not Given Polyethylene Glycol (Miralax) 17 gm PO DAILY COUNTS INCLUDE 234 BEDS AT THE [facility] Last Admin: 03/07/19 09:48 Dose: 17 gm Sodium Chloride (Saline Flush) 10 ml FLUSH ASDIRECTED PRN PRN Reason: Keep Vein Open Last Admin: 03/06/19 11:00 Dose: 10 ml Sodium Chloride (Saline Flush) 2.5 ml FLUSH ASDIRECTED PRN PRN Reason: Keep Vein Open Last Admin: 03/06/19 11:00 Dose: 2.5 ml Trazodone HCl (Trazodone) 150 mg PO BEDTIME COUNTS INCLUDE 234 BEDS AT THE [facility] Last Admin: 03/06/19 22:02 Dose: 150 mg Discontinued Medications Fentanyl (Sublimaze) 50 mcg IVPUSH ONETIME ONE Stop: 03/06/19 10:56 Last Admin: 03/06/19 10:59 Dose: 50 mcg Fentanyl (Sublimaze) Confirm Administered Dose 100 mcg .ROUTE .STK-MED ONE Stop: 03/06/19 10:56 Last Admin: 03/06/19 14:51 Dose: Not Given Sodium Chloride (Normal Saline) 1,000 mls @ 999 mls/hr IV .Bolus ONE Stop: 03/06/19 10:34 Last Admin: 03/06/19 09:39 Dose: 999 mls/hr Ceftriaxone Sodium/Dextrose 1 (gm/ Premix) 50 mls @ 100 mls/hr IV ONETIME ONE Stop: 03/06/19 15:37 Last Admin: 03/06/19 16:56 Dose: 100 mls/hr Lidocaine/Epinephrine (Xylocaine 1% With Epinephrine 1:100,000) 20 ml INJECT ONETIME ONE Stop: 03/06/19 09:37 Last Admin: 03/06/19 09:39 Dose: 20 ml Nystatin (Nystop) 0 gm TOP Q8H PRN PRN Reason: Rash Vancomycin HCl (Pharmacy To Dose - Vancomycin) 1 dose .XX ASDIRECTED [place] - Exam General: Alert, Oriented Lungs: Clear to Auscultation, Normal Respiratory Effort Cardiovascular: Regular Rate, Regular Rhythm GI/Abdominal Exam: Normal Bowel Sounds, Soft, Non-Tender, No Organomegaly, No Distention, No Abnormal Bruit, No Mass, Pelvis Stable Extremities: Other (trace edema ) Peripheral Pulses: 2+: Dorsalis Pedis (L), Dorsalis Pedis (R) - Problem List Review Problem List Initiated/Reviewed/Updated: Yes - My Orders Last 24 Hours: My Active Orders 03/06/19 11:48 Acetaminophen [Tylenol] 650 mg PO Q6H PRN Acetaminophen/HYDROcodone [[place] 325-10 MG] 1 tab PO Q6H PRN Bisacodyl [Dulcolax] 10 mg RECTAL Q24H PRN Calcium Carbonate [Tums] 1,000 mg PO Q6H PRN 03/06/19 14:28 Blood Culture x2 Reflex Set [OM.PC] Stat 03/06/19 14:31 Communication Order [RC] ROUTINE 03/06/19 14:42 CULTURE BLOOD [BC] Stat 03/06/19 15:00 CULTURE BLOOD [BC] Stat 03/06/19 18:42 Communication Order [RC] PER UNIT ROUTINE 03/06/19 18:53 Benzonatate [Tessalon Perles] 100 mg PO TID PRN 03/06/19 19:09 Transfer Patient (Change bed) [ADT] Routine 03/06/19 21:00 HYDROmorphone [Dilaudid] 2 mg PO BEDTIME Insulin Glarg,Human.Rec.Analog [LantUS Solostar] 25 units SUBCUT BEDTIME Nystatin [Nystop] 0 gm TOP BID buPROPion [Wellbutrin XL] 150 mg PO BEDTIME diphenhydrAMINE [Benadryl] 50 mg PO BEDTIME traZODone 150 mg PO BEDTIME 03/07/19 09:00 Allopurinol [Zyloprim] 100 mg PO DAILY Patient's Own Medication [Ptom] 1 each PO DAILY Polyethylene Glycol 3350 [MiraLAX] 17 gm PO DAILY 03/07/19 16:00 cefTRIAXone [Rocephin in Dextrose,Iso-Osm 1 GM/50 ML] 1 gm Premix Bag 1 bag IV Q24H - Plan Plan:: Assessment: #1. Recurrent epistaxis #2. Leukocytosis - resolved #3. Hypotension - improved #4. Normocytic anemia #5. Trace pleural effusion #6. Sacral abrasion Plan: #1. Continue to monitor #2. Remove rhino rocket tomorrow #3. Repeat cbc, bmp tomorrow AM #4. Anticipate discharge tomorrow
[2019-03-07] MEDS ORDERED: cefTRIAXone 1 GM in Premix Bag 1 BAG IV SCH (16:00)
[2019-03-07] MEDS: Acetaminophen/HYDROcodone 325-10 MG Tab PO PRN (16:37)
[2019-03-07] MEDS: traZODone 50 MG Tab PO SCH (20:43)
[2019-03-07] MEDS: buPROPion 150 MG Tab.ER PO SCH (20:44)
[2019-03-07] MEDS: diphenhydrAMINE 25 MG Cap PO SCH (20:44)
[2019-03-07] MEDS: HYDROmorphone 2 MG Tab PO SCH (20:45)
[2019-03-07] MEDS: Insulin Glargine,Human Rec. Analog 100 Units/ML 3 ML Pen SUBCUT SCH (20:46)
[2019-03-08] MEDS: Insulin Aspart 100 Units/ML 3 ML Pen SUBCUT SCH ×3 (07:49→17:00)
[2019-03-08] MEDS: Nystatin Topical Powder 15 GM Bottle TOP SCH ×2 (08:17→20:27)
[2019-03-08] MEDS: Allopurinol 100 MG Tab PO SCH (08:18)
[2019-03-08] MEDS: Polyethylene Glycol 3350 Powder 17 GM Packet PO SCH ×2 (08:18→08:20)
[2019-03-08] MEDS ORDERED: Meropenem 1 GM in Sodium Chloride 0.9% 100 ML IV SCH (10:30)
[2019-03-08] MEDS: Acetaminophen/HYDROcodone 325-10 MG Tab PO PRN ×2 (11:22→23:01)
--- NOTE | 2019-03-08 11:56 | PCM.PN ---
- General Info Date of Service: 03/08/19 Subjective Update: Complaining of dysuria. Rhino rocket removed. No further bleeding. Afebrile. Episodes of significant hypotension overnight and this AM. - Review of Systems General: Reports: Other (see hpi) - Patient Data Vitals - Most Recent: Last Vital Signs Temp 35.9 C 03/08/19 08:00 Pulse 64 03/08/19 11:00 Resp 12 03/08/19 11:00 BP 124/92 H 03/08/19 11:00 Pulse Ox 97 03/08/19 11:00 Weight - Most Recent: 88.9 kg I&O - Last 24 Hours: Intake & Output 03/07/19 03/08/19 03/08/19 22:59 06:59 14:59 Intake Total 650 1000 Balance 650 1000 Lab Results Last 24 Hours: Laboratory Results - last 24 hr 03/07/19 03/07/19 03/08/19 Range/Units 14:37 17:06 04:55 WBC (4.0-11.0) K/uL RBC (4.30-5.90) M/uL Hgb (12.0-16.0) g/dL Hct (36.0-46.0) % MCV (80.0-98.0) fL MCH (27.0-32.0) pg MCHC (31.0-37.0) g/dL RDW Std Deviation (28.0-62.0) fl RDW Coeff of Kary (11.0-15.0) % Plt Count (150-400) K/uL MPV (7.40-12.00) fL Neut % (Auto) (48.0-80.0) % Lymph % (Auto) (16.0-40.0) % [place] % (Auto) (0.0-15.0) % Eos % (Auto) (0.0-7.0) % Baso % (Auto) (0.0-1.5) % Neut # (Auto) (1.4-5.7) K/uL Lymph # (Auto) (0.6-2.4) K/uL [place] # (Auto) (0.0-0.8) K/uL Eos # (Auto) (0.0-0.7) K/uL Baso # (Auto) (0.0-0.1) K/uL Nucleated RBC % /100WBC Nucleated RBCs # K/uL Lactate (0.20-2.00) mmol/L Sodium 139 (136-145) mmol/L Potassium 3.7 (3.5-5.1) mmol/L Chloride 104 (98-107) mmol/L Carbon Dioxide 28.9 (21.0-32.0) mmol/L BUN 58 H (7.0-18.0) mg/dL Creatinine 1.8 H (0.6-1.0) mg/dL Est Cr Clr Drug Dosing 18.56 mL/min Estimated GFR (MDRD) 26.7 ml/min Glucose 60 L (74-106) mg/dL POC Glucose 146 H 184 H (60-110) mg/dL Calcium 9.3 (8.5-10.1) mg/dL Urine Color Urine Appearance Urine pH (5.0-8.0) Ur Specific [place] (1.001-1.035) Urine Protein (NEGATIVE) mg/dL Urine Glucose (UA) (NEGATIVE) mg/dL Urine Ketones (NEGATIVE) mg/dL Urine Occult Blood (NEGATIVE) Urine Nitrite (NEGATIVE) Urine Bilirubin (NEGATIVE) Urine Urobilinogen (<2.0) EU/dL Ur Leukocyte Esterase (NEGATIVE) Urine RBC (0-2/HPF) Urine WBC (0-5/HPF) Ur Epithelial Cells (NONE-FEW) Urine Bacteria (NEGATIVE) 03/08/19 03/08/19 03/08/19 Range/Units 04:55 06:53 07:43 WBC 11.10 H (4.0-11.0) K/uL RBC 3.33 L (4.30-5.90) M/uL Hgb 9.5 L Cancelled (12.0-16.0) g/dL Hct 29.5 L Cancelled (36.0-46.0) % MCV 88.6 (80.0-98.0) fL MCH 28.5 (27.0-32.0) pg MCHC 32.2 (31.0-37.0) g/dL RDW Std Deviation 55.1 (28.0-62.0) fl RDW Coeff of Kary 18 H (11.0-15.0) % Plt Count 182 (150-400) K/uL MPV 9.80 (7.40-12.00) fL Neut % (Auto) 76.3 (48.0-80.0) % Lymph % (Auto) 13.1 L (16.0-40.0) % [place] % (Auto) 7.9 (0.0-15.0) % Eos % (Auto) 2.6 (0.0-7.0) % Baso % (Auto) 0.1 (0.0-1.5) % Neut # (Auto) 8.5 H (1.4-5.7) K/uL Lymph # (Auto) 1.5 (0.6-2.4) K/uL [place] # (Auto) 0.9 H (0.0-0.8) K/uL Eos # (Auto) 0.3 (0.0-0.7) K/uL Baso # (Auto) 0.0 (0.0-0.1) K/uL Nucleated RBC % 0.0 /100WBC Nucleated RBCs # 0 K/uL Lactate (0.20-2.00) mmol/L Sodium (136-145) mmol/L Potassium (3.5-5.1) mmol/L Chloride (98-107) mmol/L Carbon Dioxide (21.0-32.0) mmol/L BUN (7.0-18.0) mg/dL Creatinine (0.6-1.0) mg/dL Est Cr Clr Drug Dosing mL/min Estimated GFR (MDRD) ml/min Glucose (74-106) mg/dL POC Glucose 68 (60-110) mg/dL Calcium (8.5-10.1) mg/dL Urine Color Urine Appearance Urine pH (5.0-8.0) Ur Specific [place] (1.001-1.035) Urine Protein (NEGATIVE) mg/dL Urine Glucose (UA) (NEGATIVE) mg/dL Urine Ketones (NEGATIVE) mg/dL Urine Occult Blood (NEGATIVE) Urine Nitrite (NEGATIVE) Urine Bilirubin (NEGATIVE) Urine Urobilinogen (<2.0) EU/dL Ur Leukocyte Esterase (NEGATIVE) Urine RBC (0-2/HPF) Urine WBC (0-5/HPF) Ur Epithelial Cells (NONE-FEW) Urine Bacteria (NEGATIVE) 05/14/19 05/14/19 05/14/19 Range/Units 08:53 10:45 10:55 WBC (4.0-11.0) K/uL RBC (4.30-5.90) M/uL Hgb (12.0-16.0) g/dL Hct (36.0-46.0) % MCV (80.0-98.0) fL MCH (27.0-32.0) pg MCHC (31.0-37.0) g/dL RDW Std Deviation (28.0-62.0) fl RDW Coeff of Kary (11.0-15.0) % Plt Count (150-400) K/uL MPV (7.40-12.00) fL Neut % (Auto) (48.0-80.0) % Lymph % (Auto) (16.0-40.0) % [place] % (Auto) (0.0-15.0) % Eos % (Auto) (0.0-7.0) % Baso % (Auto) (0.0-1.5) % Neut # (Auto) (1.4-5.7) K/uL Lymph # (Auto) (0.6-2.4) K/uL [place] # (Auto) (0.0-0.8) K/uL Eos # (Auto) (0.0-0.7) K/uL Baso # (Auto) (0.0-0.1) K/uL Nucleated RBC % /100WBC Nucleated RBCs # K/uL Lactate 1.0 (0.20-2.00) mmol/L Sodium (136-145) mmol/L Potassium (3.5-5.1) mmol/L Chloride (98-107) mmol/L Carbon Dioxide (21.0-32.0) mmol/L BUN (7.0-18.0) mg/dL Creatinine (0.6-1.0) mg/dL Est Cr Clr Drug Dosing mL/min Estimated GFR (MDRD) ml/min Glucose (74-106) mg/dL POC Glucose 87 (60-110) mg/dL Calcium (8.5-10.1) mg/dL Urine Color YELLOW Urine Appearance CLOUDY Urine pH 6.0 (5.0-8.0) Ur Specific [place] 1.015 (1.001-1.035) Urine Protein NEGATIVE (NEGATIVE) mg/dL Urine Glucose (UA) NEGATIVE (NEGATIVE) mg/dL Urine Ketones NEGATIVE (NEGATIVE) mg/dL Urine Occult Blood TRACE-INTACT H (NEGATIVE) Urine Nitrite POSITIVE H (NEGATIVE) Urine Bilirubin NEGATIVE (NEGATIVE) Urine Urobilinogen 0.2 (<2.0) EU/dL Ur Leukocyte Esterase LARGE H (NEGATIVE) Urine RBC 0-1 (0-2/HPF) Urine WBC TO NUMEROUS TO COUNT H (0-5/HPF) Ur Epithelial Cells RARE (NONE-FEW) Urine Bacteria 3+ H (NEGATIVE) Vishnu Results Last 24 Hours: Microbiology 03/06/19 15:00 Aerobic Blood Culture - Preliminary Blood - Venous - Lab Draw NO GROWTH AFTER 1 DAY Anaerobic Blood Culture - Final 03/06/19 14:42 Aerobic Blood Culture - Preliminary Blood - Venous NO GROWTH AFTER 1 DAY Anaerobic Blood Culture - Preliminary NO GROWTH AFTER 1 DAY Med Orders - Current: Current Medications Acetaminophen (Tylenol) 650 mg PO Q6H PRN PRN Reason: Pain Last Admin: 03/07/19 21:48 Dose: 650 mg Hydrocodone Bitart/Acetaminophen ([place] 325-10 Mg) 1 tab PO Q6H PRN PRN Reason: Pain Last Admin: 03/08/19 11:22 Dose: 1 tab Allopurinol (Zyloprim) 100 mg PO DAILY [facility] Last Admin: 03/08/19 08:18 Dose: 100 mg Benzonatate (Tessalon Perles) 100 mg PO TID PRN PRN Reason: Cough Bisacodyl (Dulcolax) 10 mg RECTAL Q24H PRN PRN Reason: Constipation Bupropion HCl (Wellbutrin Xl) 150 mg PO BEDTIME [facility] Last Admin: 03/07/19 20:44 Dose: 150 mg Calcium Carbonate/Glycine (Tums) 1,000 mg PO Q6H PRN PRN Reason: Heartburn Diphenhydramine HCl (Benadryl) 50 mg PO BEDTIME [facility] Last Admin: 03/07/19 20:44 Dose: 50 mg Meropenem 1 gm/ Sodium (Chloride) 100 mls @ 200 mls/hr IV Q8H [facility] Last Admin: 03/08/19 11:21 Dose: 200 mls/hr Insulin Aspart (Novolog) 0 unit SUBCUT TIDAC [facility]; Protocol Last Admin: 03/08/19 07:49 Dose: Not Given Insulin Glargine (Lantus Solostar) 25 units SUBCUT BEDTIME [facility] Last Admin: 03/07/19 20:46 Dose: 25 unit Nystatin (Nystop) 0 gm TOP BID [facility] Last Admin: 03/08/19 08:17 Dose: 1 applic Linagliptin [ (Tradjenta] 5 Mg) 1 each PO DAILY [facility] Last Admin: 03/08/19 08:18 Dose: Not Given Polyethylene Glycol (Miralax) 17 gm PO DAILY [facility] Last Admin: 03/08/19 08:20 Dose: Not Given Sodium Chloride (Saline Flush) 10 ml FLUSH ASDIRECTED PRN PRN Reason: Keep Vein Open Last Admin: 03/06/19 11:00 Dose: 10 ml Sodium Chloride (Saline Flush) 2.5 ml FLUSH ASDIRECTED PRN PRN Reason: Keep Vein Open Last Admin: 03/06/19 11:00 Dose: 2.5 ml Trazodone HCl (Trazodone) 150 mg PO BEDTIME [facility] Last Admin: 03/07/19 20:43 Dose: 150 mg Discontinued Medications Fentanyl (Sublimaze) 50 mcg IVPUSH ONETIME ONE Stop: 03/06/19 10:56 Last Admin: 03/06/19 10:59 Dose: 50 mcg Fentanyl (Sublimaze) Confirm Administered Dose 100 mcg .ROUTE .STK-MED ONE Stop: 03/06/19 10:56 Last Admin: 03/06/19 14:51 Dose: Not Given Hydromorphone HCl (Dilaudid) 2 mg PO BEDTIME [facility] Last Admin: 03/07/19 20:45 Dose: 2 mg Sodium Chloride (Normal Saline) 1,000 mls @ 999 mls/hr IV .Bolus ONE Stop: 03/06/19 10:34 Last Admin: 03/06/19 09:39 Dose: 999 mls/hr Ceftriaxone Sodium/Dextrose 1 (gm/ Premix) 50 mls @ 100 mls/hr IV ONETIME ONE Stop: 03/06/19 15:37 Last Admin: 03/06/19 16:56 Dose: 100 mls/hr Ceftriaxone Sodium/Dextrose 1 (gm/ Premix) 50 mls @ 100 mls/hr IV Q24H [facility] Last Admin: 03/07/19 16:21 Dose: 100 mls/hr Lidocaine/Epinephrine (Xylocaine 1% With Epinephrine 1:100,000) 20 ml INJECT ONETIME ONE Stop: 03/06/19 09:37 Last Admin: 03/06/19 09:39 Dose: 20 ml Nystatin (Nystop) 0 gm TOP Q8H PRN PRN Reason: Rash Vancomycin HCl (Pharmacy To Dose - Vancomycin) 1 dose .XX ASDIRECTED [place] - Exam General: Alert, Oriented HEENT: Pupils Equal, Pupils Reactive, EOMI, Mucous Membr. Moist/[place] Lungs: Clear to Auscultation, Normal Respiratory Effort Cardiovascular: Regular Rate, Regular Rhythm GI/Abdominal Exam: Normal Bowel Sounds, Soft, Non-Tender, No Organomegaly, No Distention, No Abnormal Bruit, Pelvis Stable Extremities: Normal Inspection, No Pedal Edema - Problem List Review Problem List Initiated/Reviewed/Updated: Yes - My Orders Last 24 Hours: My Active Orders 03/08/19 10:17 Admission Status [Patient Status] [ADT] Routine 03/08/19 10:30 Meropenem [Merrem] 1 gm Sodium Chloride 0.9% [Normal Saline] 100 ml IV Q8H 03/09/19 05:11 BASIC METABOLIC PANEL,BMP [CHEM] AM - Plan Plan:: Assessment: #1. UTI #2. Hypotension #3. Leukocytosis #4. CKD Plan: #1. DC Rocephin, start IV Meropenem #2. UA, UC, lactic #3. Follow BP, has increased now to normal value
[2019-03-08] MEDS: Acetaminophen 325 MG Tab PO PRN (17:01)
[2019-03-08] MEDS: diphenhydrAMINE 25 MG Cap PO SCH (20:26)
[2019-03-08] MEDS: buPROPion 150 MG Tab.ER PO SCH (20:26)
[2019-03-08] MEDS: Meropenem Premix 500 MG in Premix Bag 1 BAG IV SCH (20:26)
[2019-03-08] MEDS: traZODone 50 MG Tab PO SCH (20:26)
[2019-03-08] MEDS: Insulin Glargine,Human Rec. Analog 100 Units/ML 3 ML Pen SUBCUT SCH (21:58)
[2019-03-09] MEDS: Acetaminophen 325 MG Tab PO PRN (04:27)
[2019-03-09] MEDS: Insulin Aspart 100 Units/ML 3 ML Pen SUBCUT SCH ×2 (06:41→11:35)
--- NOTE | 2019-03-09 07:42 | PCM.DCSUM1 ---
Discharge Summary - Hospital Course Brief History: Patient doing better today. Diagnosis: Stroke: No - Discharge Data Discharge Date: 03/09/19 Discharge Disposition: DC/Tfer to [facility] 03 Condition: Fair - Patient Summary/Data Hospital Course: The patient is an 88-year-old lady who had been admitted from [facility] out of concern for severe epistaxis. The patient had been noted to have recurrent nosebleed and was found to be hypotensive. The patient also has a medical history of congestive heart failure which is compensated, diabetes mellitus type 2 and chronic kidney disease. The patient is currently in a DO NOT INTUBATE/DO NOT RESUSCITATE category. The patient upon admission was noted to have a urinary tract infection. Cultures are currently pending. The patient also has a history of ESBL UTIs. She had been started on meropenem 500 mg IV every 12 hours for the urinary tract infection. The patient had tolerated this well. The patient had been asymptomatic with regards to her urinary tract infection. The patient had been given a prescription for 7 days worth of Bactrim 400/80 mg by mouth twice a day. The patient also because of her epistaxis and subsequent anemia had been transfused with 2 units of packed red blood cells. Initially upon admission the patient's hemoglobin was at 7.6 g/dL. By day of discharge it had stabilized at 9.0 g/dL. The patient also had been noted to have reduced EGFR with the BUN/creatinine at 44 and 1.6 respectively. Initially the patient's creatinine was at 2.1 mg/dL. The patient also had remained in a DO NOT INTUBATE/DO NOT RESUSCITATE category during hospitalization. The patient had improved to her baseline to her short course of hospitalization. The patient has been recommended to return to fdc facility to continue rehabilitation and/or chronic care. The patient has had her medication list reconciled. The patient is also to continue with her appropriate heart healthy, diabetic diet as tolerated. She is also to have activity as tolerated within her physical capability. She has been hemodynamically stable and she is discharged from acute hospitalization with the recommendations listed above. - Patient Instructions Diet: Heart Healthy Diet, Diabetic Diet Activity: As Tolerated - Discharge Plan *PRESCRIPTION DRUG MONITORING PROGRAM REVIEWED*: No *COPY OF PRESCRIPTION DRUG MONITORING REPORT IN PATIENT JIGAR: No Prescriptions/Med Rec: Sulfamethoxazole/Trimethoprim [Bactrim 400-80 MG] 1 each PO BID #14 tablet Home Medications: Home Meds Acetaminophen [Tylenol Arthritis Pain] 650 mg PO Q6H PRN 01/22/15 [History] Aspirin [Halfprin] 81 mg PO DAILY 01/22/15 [History] Bumetanide 1 mg PO BID 01/22/15 [History] Magnesium Hydroxide [Milk of Magnesia] 30 ml PO DAILY PRN 01/22/15 [History] Polyethylene Glycol 3350 [MiraLAX] 17 gm PO DAILY 01/22/15 [History] Sodium Chloride [Saline Nasal [place]] 1 spray NASBOTH QID PRN 01/22/15 [History] buPROPion [Wellbutrin XL] 150 mg PO BEDTIME 01/22/15 [History] Allopurinol [Zyloprim] 100 mg PO DAILY 12/22/17 [History] Bisacodyl [Dulcolax] 10 mg RC Q24H PRN 12/22/17 [History] Calcium Carbonate [Tums] 1,000 mg PO Q6H PRN 12/22/17 [History] Dextromethorphan HBr [Tussin Cough] 5 ml PO Q4H PRN 12/22/17 [History] Insulin Glargine,Hum.Rec.Anlog [Lantus Solostar] 25 unit SUBCUT BEDTIME [History] Linagliptin [Tradjenta] 5 mg PO DAILY 12/22/17 [History] Lutein/Min/Vit C/Vit E Acetate [Ocuvite Lutein] 1 cap PO DAILY 12/22/17 [History ] Ondansetron 4 mg PO Q8H PRN 12/22/17 [History] Sennosides [Senna] 1 tab PO BID 12/22/17 [History] diphenhydrAMINE [Benadryl] 50 mg PO BEDTIME 12/22/17 [History] Aloe Vera/Sodium Chloride [[place] Saline Nasal Gel] 1 applic NASBOTH .4-10 TIMES DAILY PRN 12/23/17 [History] Calcium Citrate/Vitamin D3 [Calcium Citrate - Vit D Tablet] 1 each PO BID [History] Propranolol HCl 80 mg PO DAILY 09/19/18 [History] Dextran 70/Hypromellose [Artificial Tears] 1 drop EYEBOTH TID #0 09/23/18 [Rx] Fexofenadine HCl [Vee Allergy] 180 mg PO DAILY #0 09/23/18 [Rx] HYDROmorphone [Dilaudid] 2 mg PO BEDTIME #10 tablet 09/23/18 [Rx] Hydrocodone/Acetaminophen [Hydrocodon-Acetaminophen 5-325] 5 - 325 mg PO Q6H PRN #10 tablet 09/23/18 [Rx] Nystatin 100,000 unit TOP Q8H PRN #1 bottle 09/23/18 [Rx] traZODone HCl [Trazodone HCl] 150 mg PO BEDTIME #15 tablet 09/23/18 [Rx] Sulfamethoxazole/Trimethoprim [Bactrim 400-80 MG] 1 each PO BID #14 tablet 03/09 [Rx] Oxygen Therapy Mode: Room Air Patient Handouts: Urinary Tract Infection, Adult, Sulfamethoxazole; Trimethoprim, SMX-TMP tablets Referrals: Zeke Olvera MD [Primary Care Provider] - - Discharge Summary/Plan Comment DC Time >30 min.: Yes - General Info Date of Service: 03/09/19 Admission Dx/Problem (Free Text: Admission Diagnosis/Problem Admission Diagnosis/Problem Epistaxis, acute on chronic anemia Subjective Update: Doing better. OK for fdc facility. Functional Status: Reports: Pain Controlled - Review of Systems General: Reports: No Symptoms HEENT: Reports: No Symptoms Pulmonary: Reports: No Symptoms Cardiovascular: Reports: No Symptoms Gastrointestinal: Reports: No Symptoms Genitourinary: Reports: No Symptoms Musculoskeletal: Reports: No Symptoms Skin: Reports: No Symptoms Neurological: Reports: No Symptoms Psychiatric: Reports: No Symptoms - Patient Data Vitals - Most Recent: Last Vital Signs Temp 36.1 C 03/09/19 04:34 Pulse 73 03/09/19 06:38 Resp 17 03/09/19 06:38 BP 153/52 H 03/09/19 06:38 Pulse Ox 100 03/09/19 06:38 Weight - Most Recent: 89.675 kg I&O - Last 24 hours: Intake & Output 03/08/19 03/09/19 03/09/19 22:59 06:59 14:59 Intake Total 1200 850 Output Total 200 Balance 1000 850 Lab Results - Last 24 hrs: Laboratory Results - last 24 hr 05/14/19 05/14/19 05/14/19 Range/Units 04:55 06:53 07:43 WBC 11.10 H (4.0-11.0) K/uL RBC 3.33 L (4.30-5.90) M/uL Hgb 9.5 L Cancelled (12.0-16.0) g/dL Hct 29.5 L Cancelled (36.0-46.0) % MCV 88.6 (80.0-98.0) fL MCH 28.5 (27.0-32.0) pg MCHC 32.2 (31.0-37.0) g/dL RDW Std Deviation 55.1 (28.0-62.0) fl RDW Coeff of Kary 18 H (11.0-15.0) % Plt Count 182 (150-400) K/uL MPV 9.80 (7.40-12.00) fL Neut % (Auto) 76.3 (48.0-80.0) % Lymph % (Auto) 13.1 L (16.0-40.0) % [place] % (Auto) 7.9 (0.0-15.0) % Eos % (Auto) 2.6 (0.0-7.0) % Baso % (Auto) 0.1 (0.0-1.5) % Neut # (Auto) 8.5 H (1.4-5.7) K/uL Lymph # (Auto) 1.5 (0.6-2.4) K/uL [place] # (Auto) 0.9 H (0.0-0.8) K/uL Eos # (Auto) 0.3 (0.0-0.7) K/uL Baso # (Auto) 0.0 (0.0-0.1) K/uL Nucleated RBC % 0.0 /100WBC Nucleated RBCs # 0 K/uL Lactate (0.20-2.00) mmol/L Sodium (136-145) mmol/L Potassium (3.5-5.1) mmol/L Chloride (98-107) mmol/L Carbon Dioxide (21.0-32.0) mmol/L BUN (7.0-18.0) mg/dL Creatinine (0.6-1.0) mg/dL Est Cr Clr Drug Dosing mL/min Estimated GFR (MDRD) ml/min Glucose (74-106) mg/dL POC Glucose 68 (60-110) mg/dL Calcium (8.5-10.1) mg/dL Magnesium (1.8-2.4) mg/dL Urine Color Urine Appearance Urine pH (5.0-8.0) Ur Specific [place] (1.001-1.035) Urine Protein (NEGATIVE) mg/dL Urine Glucose (UA) (NEGATIVE) mg/dL Urine Ketones (NEGATIVE) mg/dL Urine Occult Blood (NEGATIVE) Urine Nitrite (NEGATIVE) Urine Bilirubin (NEGATIVE) Urine Urobilinogen (<2.0) EU/dL Ur Leukocyte Esterase (NEGATIVE) Urine RBC (0-2/HPF) Urine WBC (0-5/HPF) Ur Epithelial Cells (NONE-FEW) Urine Bacteria (NEGATIVE) 03/08/19 03/08/19 03/08/19 Range/Units 08:53 10:45 10:55 WBC (4.0-11.0) K/uL RBC (4.30-5.90) M/uL Hgb (12.0-16.0) g/dL Hct (36.0-46.0) % MCV (80.0-98.0) fL MCH (27.0-32.0) pg MCHC (31.0-37.0) g/dL RDW Std Deviation (28.0-62.0) fl RDW Coeff of Kary (11.0-15.0) % Plt Count (150-400) K/uL MPV (7.40-12.00) fL Neut % (Auto) (48.0-80.0) % Lymph % (Auto) (16.0-40.0) % [place] % (Auto) (0.0-15.0) % Eos % (Auto) (0.0-7.0) % Baso % (Auto) (0.0-1.5) % Neut # (Auto) (1.4-5.7) K/uL Lymph # (Auto) (0.6-2.4) K/uL [place] # (Auto) (0.0-0.8) K/uL Eos # (Auto) (0.0-0.7) K/uL Baso # (Auto) (0.0-0.1) K/uL Nucleated RBC % /100WBC Nucleated RBCs # K/uL Lactate 1.0 (0.20-2.00) mmol/L Sodium (136-145) mmol/L Potassium (3.5-5.1) mmol/L Chloride (98-107) mmol/L Carbon Dioxide (21.0-32.0) mmol/L BUN (7.0-18.0) mg/dL Creatinine (0.6-1.0) mg/dL Est Cr Clr Drug Dosing mL/min Estimated GFR (MDRD) ml/min Glucose (74-106) mg/dL POC Glucose 87 (60-110) mg/dL Calcium (8.5-10.1) mg/dL Magnesium (1.8-2.4) mg/dL Urine Color YELLOW Urine Appearance CLOUDY Urine pH 6.0 (5.0-8.0) Ur Specific [place] 1.015 (1.001-1.035) Urine Protein NEGATIVE (NEGATIVE) mg/dL Urine Glucose (UA) NEGATIVE (NEGATIVE) mg/dL Urine Ketones NEGATIVE (NEGATIVE) mg/dL Urine Occult Blood TRACE-INTACT H (NEGATIVE) Urine Nitrite POSITIVE H (NEGATIVE) Urine Bilirubin NEGATIVE (NEGATIVE) Urine Urobilinogen 0.2 (<2.0) EU/dL Ur Leukocyte Esterase LARGE H (NEGATIVE) Urine RBC 0-1 (0-2/HPF) Urine WBC TO NUMEROUS TO COUNT H (0-5/HPF) Ur Epithelial Cells RARE (NONE-FEW) Urine Bacteria 3+ H (NEGATIVE) 03/08/19 03/08/19 03/08/19 Range/Units 12:04 16:54 20:29 WBC (4.0-11.0) K/uL RBC (4.30-5.90) M/uL Hgb (12.0-16.0) g/dL Hct (36.0-46.0) % MCV (80.0-98.0) fL MCH (27.0-32.0) pg MCHC (31.0-37.0) g/dL RDW Std Deviation (28.0-62.0) fl RDW Coeff of Kary (11.0-15.0) % Plt Count (150-400) K/uL MPV (7.40-12.00) fL Neut % (Auto) (48.0-80.0) % Lymph % (Auto) (16.0-40.0) % [place] % (Auto) (0.0-15.0) % Eos % (Auto) (0.0-7.0) % Baso % (Auto) (0.0-1.5) % Neut # (Auto) (1.4-5.7) K/uL Lymph # (Auto) (0.6-2.4) K/uL [place] # (Auto) (0.0-0.8) K/uL Eos # (Auto) (0.0-0.7) K/uL Baso # (Auto) (0.0-0.1) K/uL Nucleated RBC % /100WBC Nucleated RBCs # K/uL Lactate (0.20-2.00) mmol/L Sodium (136-145) mmol/L Potassium (3.5-5.1) mmol/L Chloride (98-107) mmol/L Carbon Dioxide (21.0-32.0) mmol/L BUN (7.0-18.0) mg/dL Creatinine (0.6-1.0) mg/dL Est Cr Clr Drug Dosing mL/min Estimated GFR (MDRD) ml/min Glucose (74-106) mg/dL POC Glucose 109 107 116 H (60-110) mg/dL Calcium (8.5-10.1) mg/dL Magnesium (1.8-2.4) mg/dL Urine Color Urine Appearance Urine pH (5.0-8.0) Ur Specific [place] (1.001-1.035) Urine Protein (NEGATIVE) mg/dL Urine Glucose (UA) (NEGATIVE) mg/dL Urine Ketones (NEGATIVE) mg/dL Urine Occult Blood (NEGATIVE) Urine Nitrite (NEGATIVE) Urine Bilirubin (NEGATIVE) Urine Urobilinogen (<2.0) EU/dL Ur Leukocyte Esterase (NEGATIVE) Urine RBC (0-2/HPF) Urine WBC (0-5/HPF) Ur Epithelial Cells (NONE-FEW) Urine Bacteria (NEGATIVE) 03/08/19 03/09/19 03/09/19 Range/Units 22:54 04:45 04:45 WBC 8.11 (4.0-11.0) K/uL RBC 3.16 L (4.30-5.90) M/uL Hgb 9.0 L (12.0-16.0) g/dL Hct 28.2 L (36.0-46.0) % MCV 89.2 (80.0-98.0) fL MCH 28.5 (27.0-32.0) pg MCHC 31.9 (31.0-37.0) g/dL RDW Std Deviation 54.6 (28.0-62.0) fl RDW Coeff of Kary 17 H (11.0-15.0) % Plt Count 157 (150-400) K/uL MPV 9.50 (7.40-12.00) fL Neut % (Auto) 66.7 (48.0-80.0) % Lymph % (Auto) 20.5 (16.0-40.0) % [place] % (Auto) 8.9 (0.0-15.0) % Eos % (Auto) 3.8 (0.0-7.0) % Baso % (Auto) 0.1 (0.0-1.5) % Neut # (Auto) 5.4 (1.4-5.7) K/uL Lymph # (Auto) 1.7 (0.6-2.4) K/uL [place] # (Auto) 0.7 (0.0-0.8) K/uL Eos # (Auto) 0.3 (0.0-0.7) K/uL Baso # (Auto) 0.0 (0.0-0.1) K/uL Nucleated RBC % 0.0 /100WBC Nucleated RBCs # 0 K/uL Lactate (0.20-2.00) mmol/L Sodium 138 (136-145) mmol/L Potassium 3.9 4.0 (3.5-5.1) mmol/L Chloride 105 (98-107) mmol/L Carbon Dioxide 26.4 (21.0-32.0) mmol/L BUN 44 H (7.0-18.0) mg/dL Creatinine 1.6 H (0.6-1.0) mg/dL Est Cr Clr Drug Dosing 20.87 mL/min Estimated GFR (MDRD) 30.6 ml/min Glucose 120 H (74-106) mg/dL POC Glucose (60-110) mg/dL Calcium 8.9 (8.5-10.1) mg/dL Magnesium 2.2 (1.8-2.4) mg/dL Urine Color Urine Appearance Urine pH (5.0-8.0) Ur Specific [place] (1.001-1.035) Urine Protein (NEGATIVE) mg/dL Urine Glucose (UA) (NEGATIVE) mg/dL Urine Ketones (NEGATIVE) mg/dL Urine Occult Blood (NEGATIVE) Urine Nitrite (NEGATIVE) Urine Bilirubin (NEGATIVE) Urine Urobilinogen (<2.0) EU/dL Ur Leukocyte Esterase (NEGATIVE) Urine RBC (0-2/HPF) Urine WBC (0-5/HPF) Ur Epithelial Cells (NONE-FEW) Urine Bacteria (NEGATIVE) 03/09/19 Range/Units 06:17 WBC (4.0-11.0) K/uL RBC (4.30-5.90) M/uL Hgb (12.0-16.0) g/dL Hct (36.0-46.0) % MCV (80.0-98.0) fL MCH (27.0-32.0) pg MCHC (31.0-37.0) g/dL RDW Std Deviation (28.0-62.0) fl RDW Coeff of Kary (11.0-15.0) % Plt Count (150-400) K/uL MPV (7.40-12.00) fL Neut % (Auto) (48.0-80.0) % Lymph % (Auto) (16.0-40.0) % [place] % (Auto) (0.0-15.0) % Eos % (Auto) (0.0-7.0) % Baso % (Auto) (0.0-1.5) % Neut # (Auto) (1.4-5.7) K/uL Lymph # (Auto) (0.6-2.4) K/uL [place] # (Auto) (0.0-0.8) K/uL Eos # (Auto) (0.0-0.7) K/uL Baso # (Auto) (0.0-0.1) K/uL Nucleated RBC % /100WBC Nucleated RBCs # K/uL Lactate (0.20-2.00) mmol/L Sodium (136-145) mmol/L Potassium (3.5-5.1) mmol/L Chloride (98-107) mmol/L Carbon Dioxide (21.0-32.0) mmol/L BUN (7.0-18.0) mg/dL Creatinine (0.6-1.0) mg/dL Est Cr Clr Drug Dosing mL/min Estimated GFR (MDRD) ml/min Glucose (74-106) mg/dL POC Glucose 123 H (60-110) mg/dL Calcium (8.5-10.1) mg/dL Magnesium (1.8-2.4) mg/dL Urine Color Urine Appearance Urine pH (5.0-8.0) Ur Specific [place] (1.001-1.035) Urine Protein (NEGATIVE) mg/dL Urine Glucose (UA) (NEGATIVE) mg/dL Urine Ketones (NEGATIVE) mg/dL Urine Occult Blood (NEGATIVE) Urine Nitrite (NEGATIVE) Urine Bilirubin (NEGATIVE) Urine Urobilinogen (<2.0) EU/dL Ur Leukocyte Esterase (NEGATIVE) Urine RBC (0-2/HPF) Urine WBC (0-5/HPF) Ur Epithelial Cells (NONE-FEW) Urine Bacteria (NEGATIVE) KAMAR Results - Last 24 hrs: Microbiology 03/06/19 15:00 Aerobic Blood Culture - Preliminary Blood - Venous - Lab Draw NO GROWTH AFTER 2 DAYS Anaerobic Blood Culture - Final 03/06/19 14:42 Aerobic Blood Culture - Preliminary Blood - Venous NO GROWTH AFTER 2 DAYS Anaerobic Blood Culture - Preliminary NO GROWTH AFTER 2 DAYS Med Orders - Current: Current Medications Acetaminophen (Tylenol) 650 mg PO Q6H PRN PRN Reason: Pain Last Admin: 03/09/19 04:27 Dose: 650 mg Hydrocodone Bitart/Acetaminophen ([place] 325-10 Mg) 1 tab PO Q6H PRN PRN Reason: Pain Last Admin: 03/08/19 23:01 Dose: 1 tab Allopurinol (Zyloprim) 100 mg PO DAILY [facility] Last Admin: 03/08/19 08:18 Dose: 100 mg Benzonatate (Tessalon Perles) 100 mg PO TID PRN PRN Reason: Cough Bisacodyl (Dulcolax) 10 mg RECTAL Q24H PRN PRN Reason: Constipation Bupropion HCl (Wellbutrin Xl) 150 mg PO BEDTIME [place] Last Admin: 03/08/19 20:26 Dose: 150 mg Calcium Carbonate/Glycine (Tums) 1,000 mg PO Q6H PRN PRN Reason: Heartburn Diphenhydramine HCl (Benadryl) 50 mg PO BEDTIME [place] Last Admin: 03/08/19 20:26 Dose: 50 mg Meropenem/Sodium Chloride 500 (mg/ Premix) 50 mls @ 100 mls/hr IV Q12H [place] Last Admin: 03/08/19 20:26 Dose: 100 mls/hr Insulin Aspart (Novolog) 0 unit SUBCUT TIDAC [facility]; Protocol Last Admin: 03/09/19 06:41 Dose: Not Given Insulin Glargine (Lantus Solostar) 25 units SUBCUT BEDTIME [place] Last Admin: 03/08/19 21:58 Dose: Not Given Nystatin (Nystop) 0 gm TOP BID [facility] Last Admin: 03/08/19 20:27 Dose: 1 applic Linagliptin [ (Tradjenta] 5 Mg) 1 each PO DAILY [facility] Last Admin: 03/08/19 08:18 Dose: Not Given Polyethylene Glycol (Miralax) 17 gm PO DAILY [facility] Last Admin: 03/08/19 08:20 Dose: Not Given Sodium Chloride (Saline Flush) 10 ml FLUSH ASDIRECTED PRN PRN Reason: Keep Vein Open Last Admin: 03/06/19 11:00 Dose: 10 ml Sodium Chloride (Saline Flush) 2.5 ml FLUSH ASDIRECTED PRN PRN Reason: Keep Vein Open Last Admin: 03/06/19 11:00 Dose: 2.5 ml Trazodone HCl (Trazodone) 150 mg PO BEDTIME [facility] Last Admin: 03/08/19 20:26 Dose: 150 mg Discontinued Medications Fentanyl (Sublimaze) 50 mcg IVPUSH ONETIME ONE Stop: 03/06/19 10:56 Last Admin: 03/06/19 10:59 Dose: 50 mcg Fentanyl (Sublimaze) Confirm Administered Dose 100 mcg .ROUTE .STK-MED ONE Stop: 03/06/19 10:56 Last Admin: 03/06/19 14:51 Dose: Not Given Hydromorphone HCl (Dilaudid) 2 mg PO BEDTIME [facility] Last Admin: 03/07/19 20:45 Dose: 2 mg Sodium Chloride (Normal Saline) 1,000 mls @ 999 mls/hr IV .Bolus ONE Stop: 03/06/19 10:34 Last Admin: 03/06/19 09:39 Dose: 999 mls/hr Ceftriaxone Sodium/Dextrose 1 (gm/ Premix) 50 mls @ 100 mls/hr IV ONETIME ONE Stop: 03/06/19 15:37 Last Admin: 03/06/19 16:56 Dose: 100 mls/hr Ceftriaxone Sodium/Dextrose 1 (gm/ Premix) 50 mls @ 100 mls/hr IV Q24H [facility] Last Admin: 03/07/19 16:21 Dose: 100 mls/hr Meropenem 1 gm/ Sodium (Chloride) 100 mls @ 200 mls/hr IV Q8H [facility] Last Admin: 03/08/19 11:21 Dose: 200 mls/hr Lidocaine/Epinephrine (Xylocaine 1% With Epinephrine 1:100,000) 20 ml INJECT ONETIME ONE Stop: 03/06/19 09:37 Last Admin: 03/06/19 09:39 Dose: 20 ml Nystatin (Nystop) 0 gm TOP Q8H PRN PRN Reason: Rash Vancomycin HCl (Pharmacy To Dose - Vancomycin) 1 dose .XX ASDIRECTED [place] - Exam Quality Assessment: Denies: Supplemental Oxygen General: Reports: Alert, Oriented, Cooperative, No Acute Distress HEENT: Reports: Pupils Equal, Pupils Reactive, EOMI. Denies: Mucous Membr. Moist/Paul (Dry) Neck: Reports: Supple, Trachea Midline Lungs: Reports: Clear to Auscultation, Normal Respiratory Effort Cardiovascular: Reports: Regular Rate, Regular Rhythm, Murmurs (Grade 2/6 holosystolic) GI/Abdominal Exam: Normal Bowel Sounds, Soft, Non-Tender, No Distention Back Exam: Reports: Normal Inspection, Full Range of Motion Extremities: Normal Inspection, No Pedal Edema Skin: Reports: Warm, Dry, Intact Neurological: Reports: No New Focal Deficit Psy/Mental Status: Reports: Alert, Normal Affect, Normal Mood
[2019-03-09] MEDS: Polyethylene Glycol 3350 Powder 17 GM Packet PO SCH (08:22)
[2019-03-09] MEDS: Allopurinol 100 MG Tab PO SCH (08:22)
[2019-03-09] MEDS: Nystatin Topical Powder 15 GM Bottle TOP SCH (08:23)
[2019-03-09] MEDS: Meropenem Premix 500 MG in Premix Bag 1 BAG IV SCH (08:23)
[2019-03-09 12:10] VITALS: BP 123/35
== END 2019-03-09 13:35 | DRG 872 ==
LOC: MW.ED 09:10 → MW.MS 10:32 → OBSVTOIN 19:09 → MW.ICU 22:01
PROVIDERS: ADMIT Internal Medicine; ATTEND Internal Medicine
PROC: 30233N1 Transfusion of Nonautologous Red Blood Cells into Peripheral Vein, Percutaneous Approach (ICD-10-PCS; principal; 2019-03-07)
DX: A41.9 Sepsis, unspecified organism (principal); J90 Pleural effusion, not elsewhere classified; N17.9 Acute kidney failure, unspecified; E11.22 Type 2 diabetes mellitus with diabetic chronic kidney disease; N18.9 Chronic kidney disease, unspecified; I50.9 Heart failure, unspecified; F32.9 Major depressive disorder, single episode, unspecified; M19.91 Primary osteoarthritis, unspecified site; K59.09 Other constipation; Z96.659 Presence of unspecified artificial knee joint; S30.810A Abrasion of lower back and pelvis, initial encounter; D64.9 Anemia, unspecified; Z66 Do not resuscitate; I13.10 Hypertensive heart and chronic kidney disease without heart failure, with stage 1 through stage 4 chronic kidney disease, or unspecified chronic kidney disease; R04.0 Epistaxis; Z88.1 Allergy status to other antibiotic agents; Z88.8 Allergy status to other drugs, medicaments and biological substances; Z79.82 Long term (current) use of aspirin; Z79.4 Long term (current) use of insulin
CPT/HCPCS: 36415; 36430; 51701; 71045; 71045-26; 80048; 80053; 81001; 82962; 83605; 83735; 83880; 84132; 85014; 85018; 85025; 85027; 85610; 85730; 86850; 86900; 86901; 86920; 86921; 86922; 87040; 87086; 87088; 87186; 96361; 96365; 96374; 96375; 96376; 99284-25; A4217; A9270-GY; G0378; J0696; J1815-GY; J2185; J3010; J7030; J7040; P9016

== ENCOUNTER 2019-05-16 12:37 | Inpatient (IN) | payer MEDICARE, BC ==
[2019-05-16] MEDS ORDERED: Sodium Chloride 0.9% 10 ML Syringe FLUSH PRN (13:13)
[2019-05-16] MEDS ORDERED: Sodium Chloride 0.9% 2.5 ML Syringe FLUSH PRN (13:13)
--- NOTE | 2019-05-16 13:16 | EDM.PDOC ---
ED HPI GENERAL MEDICAL PROBLEM - General Chief Complaint: Gastrointestinal Problem Stated Complaint: NO BM Time Seen by Provider: 05/16/19 13:16 Source of Information: Reports: Correction Records History Limitations: Reports: No Limitations - History of Present Illness INITIAL COMMENTS - FREE TEXT/NARRATIVE: HISTORY AND PHYSICAL: History of present illness: Patient is an 88-year-old female patient of [facility] presents to the ED for concern of abdominal pain. Per skilled nursing records, patient has not had a bowel movement in 5 days, abdomen has been distended, hyperactive bowel sounds , and emesis on and off x 1 week as well as poor appetite. Patient offers no additional history. Records show history of SBO as well as CHF, hypertension, type 2 DM, cardiorenal syndrome. Family states they have been on vacation for the past 7 days so they have no additional history to offer. 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 Review of systems: As per history of present illness and below otherwise all systems reviewed and negative. Past medical history: As per history of present illness and as reviewed below otherwise noncontributory. Surgical history: As per history of present illness and as reviewed below otherwise noncontributory. Social history: No reported history of drug or alcohol abuse. Family history: As per history of present illness and as reviewed below otherwise noncontributory. Physical exam: General: Patient sitting comfortably in no acute distress and nontoxic appearing HEENT: Atraumatic, normocephalic, pupils reactive, negative for conjunctival pallor or scleral icterus, mucous membranes moist, throat clear, neck supple, nontender, trachea midline. No meningeal signs. Lungs: Clear to auscultation, breath sounds equal bilaterally, chest nontender. Heart: S1S2, regular, negative for clicks, rubs, or overt murmur. Abdomen: Distended, hyperactive BS, diffusely tender. Negative for masses or hepatosplenomegaly. Negative for costovertebral tenderness. No rigidity, rebound , guarding. Pelvis: Stable nontender. Genitourinary: Deferred. Rectal: Deferred. Extremities: Atraumatic, negative for cords or calf pain. Neurovascular unremarkable. Neuro: Awake, alert, oriented. Cranial nerves II through XII unremarkable. Cerebellum unremarkable. Motor and sensory unremarkable throughout. Exam nonfocal. Notes: Diagnostics: CBC, CMP, lactic acid, UA, Blood culture x 2, CXR, CT abdomen/pelvis w/o contrast Therapeutics: 500mL NS IV Lasix 20mg IV Prescriptions: Impression: Hypercalcemia, SBO Plan: Discussed with Dr. Schwartz, patient will be admitted to inpatient. Definitive disposition and diagnosis as appropriate pending reevaluation and review of above. - Related Data Allergies Allergy/AdvReac Type Severity Reaction Status Date / Time ertapenem [From Invanz] Allergy Other Verified 05/16/19 12:58 influenza virus vacc Allergy Other Verified 05/16/19 12:58 trivalent, split [From Fluzone] influenza virus vaccine, Allergy Weakness Verified 03/06/19 09:30 specific [influenza virus vacc,specific] levofloxacin [From Levaquin] Allergy Cannot Verified 03/06/19 09:30 Remember Home Meds: Home Meds Acetaminophen [Tylenol Arthritis Pain] 650 mg PO Q6H PRN 01/22/15 [History] Aspirin [Halfprin] 81 mg PO DAILY 01/22/15 [History] Bumetanide 1 mg PO BID 01/22/15 [History] Magnesium Hydroxide [Milk of Magnesia] 30 ml PO DAILY PRN 01/22/15 [History] Polyethylene Glycol 3350 [MiraLAX] 17 gm PO DAILY 01/22/15 [History] Sodium Chloride [Saline Nasal [place]] 1 spray NASBOTH QID PRN 01/22/15 [History] buPROPion [Wellbutrin XL] 150 mg PO BEDTIME 01/22/15 [History] Allopurinol [Zyloprim] 100 mg PO DAILY 12/22/17 [History] Bisacodyl [Dulcolax] 10 mg RC Q24H PRN 12/22/17 [History] Dextromethorphan HBr [Tussin Cough] 5 ml PO Q4H PRN 12/22/17 [History] Insulin Glargine,Hum.Rec.Anlog [Lantus Solostar] 25 unit SUBCUT BEDTIME [History] Linagliptin [Tradjenta] 5 mg PO DAILY 12/22/17 [History] Lutein/Min/Vit C/Vit E Acetate [Ocuvite Lutein] 1 cap PO DAILY 12/22/17 [History ] Ondansetron 4 mg PO Q8H PRN 12/22/17 [History] Sennosides [Senna] 1 tab PO BID 12/22/17 [History] diphenhydrAMINE [Benadryl] 50 mg PO BEDTIME 12/22/17 [History] Aloe Vera/Sodium Chloride [[place] Saline Nasal Gel] 1 applic NASBOTH .4-10 TIMES DAILY PRN 12/23/17 [History] Propranolol HCl 80 mg PO DAILY 09/19/18 [History] Dextran 70/Hypromellose [Artificial Tears] 1 drop EYEBOTH TID #0 09/23/18 [Rx] HYDROmorphone [Dilaudid] 2 mg PO BEDTIME #10 tablet 09/23/18 [Rx] Nystatin 100,000 unit TOP Q8H PRN #1 bottle 09/23/18 [Rx] Calcium Citrate/Vitamin D3 [Calcium Citrate - Vit D Tablet] 1 each PO BID #60 tablet 03/09/19 [Rx] Hydrocodone/Acetaminophen [Hydrocodon-Acetaminophen 5-325] 1 tab PO Q6H PRN #20 tablet 03/09/19 [Rx] Sulfamethoxazole/Trimethoprim [Bactrim 400-80 MG] 1 each PO BID #14 tablet 03/09 [Rx] traZODone HCl [Trazodone HCl] 200 mg PO BEDTIME #15 tablet 03/09/19 [Rx] Past Medical History HEENT History: Reports: Allergic Rhinitis, Sinusitis Cardiovascular History: Reports: Hypertension Other Cardiovascular History: localize edema Respiratory History: Reports: Other (See Below) Other Respiratory History: 02 PRN 2liters/min for less than 90% saturation Gastrointestinal History: Reports: Chronic Constipation Genitourinary History: Reports: Chronic Renal Insuffiency, Retention, Urinary Other Genitourinary History: Chronic kidney dse 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 Musculoskeletal History: Reports: Osteoarthritis, Other (See Below) Other Musculoskeletal History: weakness, osteomylitis Neurological History: Reports: Other (See Below) Other Neuro History: spinal stenosis, essential tremor Psychiatric History: Reports: Depression Other Psychiatric History: sleep disorder Endocrine/Metabolic History: Reports: Diabetes, Type II Other Endocrine/Metabolic History: 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 Hematologic History: Reports: Blood Transfusion(s) Immunologic History: Reports: None Oncologic (Cancer) History: Reports: None Dermatologic History: Reports: None - Infectious Disease History Infectious Disease History: Reports: Other (See Below) Other Infectious Disease History: unknown - Past Surgical History GI Surgical History: Reports: None Musculoskeletal Surgical History: Reports: Knee Replacement Social & Family History - Family History Family Medical History: Noncontributory - Tobacco Use Smoking Status *Q: Unknown Ever Smoked - Caffeine Use Caffeine Use: Reports: None - Recreational Drug Use Recreational Drug Use: No ED ROS GENERAL - Review of Systems Review Of Systems: ROS reveals no pertinent complaints other than HPI. ED EXAM, GI/ABD - Physical Exam Exam: See Below (see dictation) Course - Vital Signs Last Recorded V/S: Last Vital Signs Temp 97.1 F 05/16/19 12:59 Pulse 58 L 05/16/19 12:59 Resp 20 05/16/19 12:59 BP 129/48 L 05/16/19 12:59 Pulse Ox 94 L 05/16/19 12:59 - Orders/Labs/Meds Orders: Active Orders 24 hr Category Date Time Status Admission Status [Patient Status] [ADT] Stat ADT 05/16/19 15:17 Active CULTURE BLOOD [BC] Stat Lab 05/16/19 13:39 Received CULTURE BLOOD [BC] Stat Lab 05/16/19 13:55 Received UA RFX KAMAR AND CULT IF INDIC [URIN] Stat Lab 05/16/19 13:16 Ordered Sodium Chloride 0.9% [Normal Saline] 500 ml Med 05/16/19 15:15 Active IV .BOLUS Sodium Chloride 0.9% [Saline Flush] Med 05/16/19 13:13 Active 10 ml FLUSH ASDIRECTED PRN Sodium Chloride 0.9% [Saline Flush] Med 05/16/19 13:13 Active 2.5 ml FLUSH ASDIRECTED PRN Blood Culture x2 Reflex Set [OM.PC] Stat Oth 05/16/19 13:23 Ordered Saline Lock Insert [OM.PC] Stat Oth 05/16/19 13:13 Ordered Medication Orders Sodium Chloride (Normal Saline) 500 mls @ 999 mls/hr IV .BOLUS [place] Last Admin: 05/16/19 15:15 Dose: 999 mls/hr Sodium Chloride (Saline Flush) 10 ml FLUSH ASDIRECTED PRN PRN Reason: Keep Vein Open Last Admin: 05/16/19 15:15 Dose: 10 ml Sodium Chloride (Saline Flush) 2.5 ml FLUSH ASDIRECTED PRN PRN Reason: Keep Vein Open Last Admin: 05/16/19 15:15 Dose: 2.5 ml Labs: Laboratory Tests 05/16/19 05/16/19 05/16/19 Range/Units 13:32 13:32 13:32 WBC 11.27 H (4.0-11.0) K/uL RBC 4.80 (4.30-5.90) M/uL Hgb 13.1 (12.0-16.0) g/dL Hct 42.5 (36.0-46.0) % MCV 88.5 (80.0-98.0) fL MCH 27.3 (27.0-32.0) pg MCHC 30.8 L (31.0-37.0) g/dL RDW Std Deviation 53.4 (28.0-62.0) fl RDW Coeff of Kary 17 H (11.0-15.0) % Plt Count 199 (150-400) K/uL MPV 9.30 (7.40-12.00) fL Neut % (Auto) 59.5 (48.0-80.0) % Lymph % (Auto) 26.0 (16.0-40.0) % [place] % (Auto) 12.2 (0.0-15.0) % Eos % (Auto) 2.2 (0.0-7.0) % Baso % (Auto) 0.1 (0.0-1.5) % Neut # (Auto) 6.7 H (1.4-5.7) K/uL Lymph # (Auto) 2.9 H (0.6-2.4) K/uL Edwards # (Auto) 1.4 H (0.0-0.8) K/uL Eos # (Auto) 0.3 (0.0-0.7) K/uL Baso # (Auto) 0.0 (0.0-0.1) K/uL Nucleated RBC % 0.0 /100WBC Nucleated RBCs # 0 K/uL Lactate 1.1 (0.20-2.00) mmol/L Sodium 143 (136-145) mmol/L Potassium 3.9 (3.5-5.1) mmol/L Chloride 99 (98-107) mmol/L Carbon Dioxide 38.1 H (21.0-32.0) mmol/L BUN 40 H (7.0-18.0) mg/dL Creatinine 2.1 H (0.6-1.0) mg/dL Est Cr Clr Drug Dosing TNP Estimated GFR (MDRD) 22.3 ml/min Glucose 73 L (74-106) mg/dL Calcium 12.9 H (8.5-10.1) mg/dL Total Bilirubin 0.6 (0.2-1.0) mg/dL AST 16 (15-37) IU/L ALT 21 (14-63) IU/L Alkaline Phosphatase 98 (46-116) U/L Total Protein 7.1 (6.4-8.2) g/dL Albumin 2.7 L (3.4-5.0) g/dL Globulin 4.4 H (2.6-4.0) g/dL Albumin/Globulin Ratio 0.6 L (0.9-1.6) Meds: Medications Generic Name Dose Route Start Last Admin Trade Name Freq PRN Reason Stop Dose Admin Sodium Chloride 500 mls @ 999 mls/hr 05/16/19 15:15 05/16/19 15:15 Normal Saline IV 999 mls/hr .BOLUS [place] Administration Sodium Chloride 10 ml 05/16/19 13:13 05/16/19 15:15 Saline Flush FLUSH 10 ml ASDIRECTED PRN Administration Keep Vein Open Sodium Chloride 2.5 ml 05/16/19 13:13 05/16/19 15:15 Saline Flush FLUSH 2.5 ml ASDIRECTED PRN Administration Keep Vein Open Discontinued Medications Generic Name Dose Route Start Last Admin Trade Name Freq PRN Reason Stop Dose Admin Furosemide 20 mg 05/16/19 14:44 05/16/19 15:15 Lasix IVPUSH 05/16/19 14:45 20 mg NOW ONE Administration Departure - Departure Time of Disposition: 15:20 Disposition: Home, Self-Care 01 Condition: Good Clinical Impression: Hypercalcemia - Discharge Information Referrals: PCP,Unknown [Primary Care Provider] - Forms: ED Department Discharge - My Orders Last 24 Hours: My Active Orders 05/16/19 13:13 Sodium Chloride 0.9% [Saline Flush] 10 ml FLUSH ASDIRECTED PRN Sodium Chloride 0.9% [Saline Flush] 2.5 ml FLUSH ASDIRECTED PRN Saline Lock Insert [OM.PC] Stat 05/16/19 13:16 UA RFX KAMAR AND CULT IF INDIC [URIN] Stat 05/16/19 13:23 Blood Culture x2 Reflex Set [OM.PC] Stat 05/16/19 13:39 CULTURE BLOOD [BC] Stat 05/16/19 13:55 CULTURE BLOOD [BC] Stat 05/16/19 15:15 Sodium Chloride 0.9% [Normal Saline] 500 ml IV .BOLUS 05/16/19 15:17 Admission Status [Patient Status] [ADT] Stat - Assessment/Plan Last 24 Hours: My Active Orders 05/16/19 13:13 Sodium Chloride 0.9% [Saline Flush] 10 ml FLUSH ASDIRECTED PRN Sodium Chloride 0.9% [Saline Flush] 2.5 ml FLUSH ASDIRECTED PRN Saline Lock Insert [OM.PC] Stat 05/16/19 13:16 UA RFX KAMAR AND CULT IF INDIC [URIN] Stat 05/16/19 13:23 Blood Culture x2 Reflex Set [OM.PC] Stat 05/16/19 13:39 CULTURE BLOOD [BC] Stat 05/16/19 13:55 CULTURE BLOOD [BC] Stat 05/16/19 15:15 Sodium Chloride 0.9% [Normal Saline] 500 ml IV .BOLUS 05/16/19 15:17 Admission Status [Patient Status] [ADT] Stat
[2019-05-16 13:58] LABS: CHLORIDE,CL 99 mmol/L (98-107); SODIUM,NA 143 mmol/L (136-145)
--- NOTE | 2019-05-16 14:38 | CR ---
EXAMINATION: Portable chest radiograph. HISTORY: Shortness of breath. Comparison: 03/06/2019 FINDINGS: The heart is normal in size for technique. The trachea is midline. Small, possibly loculated right pleural effusion and trace left pleural effusion. Bibasilar atelectasis/infiltrate. Osseous structures appear osteopenic. IMPRESSION: 1. Small right, possibly loculated, and trace left pleural effusions with mild bibasilar atelectasis/infiltrate.
[2019-05-16] MEDS ORDERED: Furosemide 40 MG/4 ML VIAL IVPUSH ONE (14:44)
--- NOTE | 2019-05-16 14:58 | CT ---
CT of the abdomen and pelvis without contrast. HISTORY: Pain TECHNIQUE: Axial CT images were obtained of the abdomen and pelvis without contrast. Coronal and sagittal reconstructions obtained. FINDINGS: There is a small right pleural effusion. Atelectasis is noted within the lung bases. There is a 1.3 cm area of groundglass within the left lingula. This also a known 5 mm nodule within the left lung base. Mitral annular calcifications and coronary artery calcifications are noted. The liver, spleen, adrenal glands, and pancreas appear unremarkable for noncontrast examination. The gallbladder appears normal. There is no bulky retroperitoneal lymphadenopathy. No abdominal ascites. There are no calcifications noted within the kidneys or along the courses of the ureters bilaterally. Multiple dilated loops of small bowel noted within the left abdomen measuring up to 4.3 cm. There is however a moderate amount of stool and gas throughout the colon as well. There is no bulky pelvic lymphadenopathy. No free fluid. No free air. The urinary bladder appears normal. The visualized osseous structures appear normal. IMPRESSION: 1. Multiple dilated loops of small bowel, this may represent an ileus or developing mechanical small bowel obstruction. 2. Small right pleural effusion with a thickened pleura, this may represent an underlying empyema. 3. There is a 1.3 cm groundglass opacity within the left lingula, follow-up in 3 months. 4. There is a 5 mm diameter nodule within the left lower lobe, present on a CT from 04/15/2010 is not significantly changed. 5. Moderate coronary artery calcifications.
[2019-05-16] MEDS ORDERED: Sodium Chloride 0.9% 500 ML IV SCH (15:15)
[2019-05-16] MEDS ORDERED: cefTRIAXone 1 GM in Premix Bag 1 BAG IV ONE (15:55)
[2019-05-16] MEDS ORDERED: Acetaminophen 325 MG Tab PO ONE (16:13)
[2019-05-16] MEDS ORDERED: Meropenem 1 GM SDV IV SCH (16:15)
--- NOTE | 2019-05-16 16:30 | PCM.HP ---
<Autumn Sinclair M - Last Filed: 05/16/19 16:49> H&P History of Present Illness - General Date of Service: 05/16/19 Admit Problem/Dx: Admission Diagnosis/Problem Admission Diagnosis/Problem Hypercalcemia Source of Information: Family (daughter in law at bedside), Senior Care Records , Old Records. No: Patient History Limitations: Reports: Altered Mental Status - History of Present Illness Initial Comments - Free Text/Narative: This 88 year old female with pmh of HTN, DM Type 2, dementia and chronic pain presented to the ED from [facility] with complaints of poor appetite, distended abdomen and no BM for 5 days. Daughter in law at bedside reports for the last few weeks family has noticed her more confused and sleeping a lot more. longterm staff reported today increased abdominal pain and decreased bowel sounds. Linda is unable to provide much history. In the ED mild leukocytosis noted, 11,270, hgb 13.1, Na 143, K+ 3.9, Bicarb 38.1 , BUN 40 and Cr 2.1 (near baseline CKD), glucose 73, and Ca 12.9. Corrected calcium for albumin is near 13.9. Ionized calcium 6.2. UA reveals UTI. CXR revealed small right pleural effusion, loculated and mild bibasilar atelectasis. Abd/pelvis CT revealed multiple dilated loops of bowel, representing ileus vs SBO. Small R pleural effusion with thickened pleura, possible underlying empyema. BC and UC obtained in the ED. She will be admitted inpatient due to SBO, UTI and hypercalcemia. PCP, Dr Olvera buttock Pain Score (Numeric/FACES): 10 - Related Data Allergies/Adverse Reactions: Allergies Allergy/AdvReac Type Severity Reaction Status Date / Time ertapenem [From Invanz] Allergy Other Verified 05/16/19 12:58 influenza virus vacc Allergy Other Verified 05/16/19 12:58 trivalent, split [From Fluzone] influenza virus vaccine, Allergy Weakness Verified 03/06/19 09:30 specific [influenza virus vacc,specific] levofloxacin [From Levaquin] Allergy Cannot Verified 03/06/19 09:30 Remember Home Medications: Home Meds Acetaminophen [Tylenol Arthritis Pain] 650 mg PO Q6H PRN 01/22/15 [History] Aspirin [Halfprin] 81 mg PO DAILY 01/22/15 [History] Bumetanide 1 mg PO BID 01/22/15 [History] Magnesium Hydroxide [Milk of Magnesia] 30 ml PO DAILY PRN 01/22/15 [History] Polyethylene Glycol 3350 [MiraLAX] 17 gm PO DAILY 01/22/15 [History] Sodium Chloride [Saline Nasal [place]] 1 spray NASBOTH QID PRN 01/22/15 [History] buPROPion [Wellbutrin XL] 150 mg PO BEDTIME 01/22/15 [History] Allopurinol [Zyloprim] 100 mg PO DAILY 12/22/17 [History] Bisacodyl [Dulcolax] 10 mg RC Q24H PRN 12/22/17 [History] Dextromethorphan HBr [Tussin Cough] 5 ml PO Q4H PRN 12/22/17 [History] Insulin Glargine,Hum.Rec.Anlog [Lantus Solostar] 25 unit SUBCUT BEDTIME [History] Linagliptin [Tradjenta] 5 mg PO DAILY 12/22/17 [History] Lutein/Min/Vit C/Vit E Acetate [Ocuvite Lutein] 1 cap PO DAILY 12/22/17 [History ] Ondansetron 4 mg PO Q8H PRN 12/22/17 [History] Sennosides [Senna] 1 tab PO BID 12/22/17 [History] diphenhydrAMINE [Benadryl] 50 mg PO BEDTIME 12/22/17 [History] Aloe Vera/Sodium Chloride [[place] Saline Nasal Gel] 1 applic NASBOTH .4-10 TIMES DAILY PRN 12/23/17 [History] Propranolol HCl 80 mg PO DAILY 09/19/18 [History] Dextran 70/Hypromellose [Artificial Tears] 1 drop EYEBOTH TID #0 09/23/18 [Rx] HYDROmorphone [Dilaudid] 2 mg PO BEDTIME #10 tablet 09/23/18 [Rx] Nystatin 100,000 unit TOP Q8H PRN #1 bottle 09/23/18 [Rx] Calcium Citrate/Vitamin D3 [Calcium Citrate - Vit D Tablet] 1 each PO BID #60 tablet 03/09/19 [Rx] Hydrocodone/Acetaminophen [Hydrocodon-Acetaminophen 5-325] 1 tab PO Q6H PRN #20 tablet 03/09/19 [Rx] Sulfamethoxazole/Trimethoprim [Bactrim 400-80 MG] 1 each PO BID #14 tablet 03/09 [Rx] traZODone HCl [Trazodone HCl] 200 mg PO BEDTIME #15 tablet 03/09/19 [Rx] Past Medical History HEENT History: Reports: Allergic Rhinitis, Sinusitis Cardiovascular History: Reports: Hypertension. Denies: CAD, Heart Failure, NC Other Cardiovascular History: localize edema Respiratory History: Reports: Other (See Below) Other Respiratory History: 02 PRN 2liters/min for less than 90% saturation Gastrointestinal History: Reports: Chronic Constipation Genitourinary History: Reports: Chronic Renal Insuffiency, Retention, Urinary SAND MIXER History: Reports: None Musculoskeletal History: Reports: Osteoarthritis, Other (See Below) Other Musculoskeletal History: weakness, osteomylitis Neurological History: Reports: Other (See Below) Other Neuro History: spinal stenosis, essential tremor Psychiatric History: Reports: Depression Other Psychiatric History: sleep disorder Endocrine/Metabolic History: Reports: Diabetes, Type II Other Endocrine/Metabolic History: skilled nursing use of insulin Hematologic History: Reports: Blood Transfusion(s) Immunologic History: Reports: None Oncologic (Cancer) History: Reports: None Dermatologic History: Reports: None - Infectious Disease History Infectious Disease History: Reports: Other (See Below) Other Infectious Disease History: unknown - Past Surgical History GI Surgical History: Reports: None Musculoskeletal Surgical History: Reports: Knee Replacement Social & Family History - Family History Family Medical History: Noncontributory - Tobacco Use Smoking Status *Q: Unknown Ever Smoked - Caffeine Use Caffeine Use: Reports: None - Recreational Drug Use Recreational Drug Use: No - Living Situation & Occupation Living situation: Reports: Extended Care Facility H&P Review of Systems - Review of Systems: Review Of Systems: Unable To Obtain (patient continuous complains of pain, otherwise unable to obtain further HPI besides what is mentioned from family) Exam - Exam Exam: See Below - Vital Signs Vital Signs: Last Vital Signs Temp 97.1 F 05/16/19 12:59 Pulse 59 L 05/16/19 15:43 Resp 18 05/16/19 15:43 BP 124/59 L 05/16/19 15:43 Pulse Ox 98 05/16/19 15:43 - Exam Quality Assessment: Supplemental Oxygen, Urinary Catheter, Skin Breakdown General: Alert, Cooperative, Mild Distress (crying out in pain). No: Oriented HEENT: Conjunctiva Clear, Posterior Pharynx Clear. No: Mucosa Moist & [place] ( dry mucous membranes) Neck: Supple, Trachea Midline Lungs: Normal Respiratory Effort, Decreased Breath Sounds (bilaterally) Cardiovascular: Regular Rate, Regular Rhythm, Normal S1, Normal S2. No: Systolic Murmur GI/Abdominal Exam: Distended, Tender (diffusely). No: Normal Bowel Sounds ( hypoactive) Extremities: Normal Inspection, Normal Range of Motion, Non-Tender, Pedal Edema (scant to +1 pitting edema) Skin: Decubitis (coccyx skin breakdown) Neuro Extensive - Mental Status: Alert, Normal Cognition. No: Oriented x3 Psychiatric: Alert, Normal Affect, Normal Mood - Patient Data Lab Results Last 24 hrs: Laboratory Results - last 24 hr 05/16/19 05/16/19 05/16/19 Range/Units 13:32 13:32 13:32 WBC 11.27 H (4.0-11.0) K/uL RBC 4.80 (4.30-5.90) M/uL Hgb 13.1 (12.0-16.0) g/dL Hct 42.5 (36.0-46.0) % MCV 88.5 (80.0-98.0) fL MCH 27.3 (27.0-32.0) pg MCHC 30.8 L (31.0-37.0) g/dL RDW Std Deviation 53.4 (28.0-62.0) fl RDW Coeff of Kary 17 H (11.0-15.0) % Plt Count 199 (150-400) K/uL MPV 9.30 (7.40-12.00) fL Neut % (Auto) 59.5 (48.0-80.0) % Lymph % (Auto) 26.0 (16.0-40.0) % [place] % (Auto) 12.2 (0.0-15.0) % Eos % (Auto) 2.2 (0.0-7.0) % Baso % (Auto) 0.1 (0.0-1.5) % Neut # (Auto) 6.7 H (1.4-5.7) K/uL Lymph # (Auto) 2.9 H (0.6-2.4) K/uL [place] # (Auto) 1.4 H (0.0-0.8) K/uL Eos # (Auto) 0.3 (0.0-0.7) K/uL Baso # (Auto) 0.0 (0.0-0.1) K/uL Nucleated RBC % 0.0 /100WBC Nucleated RBCs # 0 K/uL Ionized Calcium (4.6-5.1) mg/dL Lactate 1.1 (0.20-2.00) mmol/L Sodium 143 (136-145) mmol/L Potassium 3.9 (3.5-5.1) mmol/L Chloride 99 (98-107) mmol/L Carbon Dioxide 38.1 H (21.0-32.0) mmol/L BUN 40 H (7.0-18.0) mg/dL Creatinine 2.1 H (0.6-1.0) mg/dL Est Cr Clr Drug Dosing TNP Estimated GFR (MDRD) 22.3 ml/min Glucose 73 L (74-106) mg/dL Calcium 12.9 H (8.5-10.1) mg/dL Total Bilirubin 0.6 (0.2-1.0) mg/dL AST 16 (15-37) IU/L ALT 21 (14-63) IU/L Alkaline Phosphatase 98 (46-116) U/L Total Protein 7.1 (6.4-8.2) g/dL Albumin 2.7 L (3.4-5.0) g/dL Globulin 4.4 H (2.6-4.0) g/dL Albumin/Globulin Ratio 0.6 L (0.9-1.6) Urine Color Urine Appearance Urine pH (5.0-8.0) Ur Specific [place] (1.001-1.035) Urine Protein (NEGATIVE) mg/dL Urine Glucose (UA) (NEGATIVE) mg/dL Urine Ketones (NEGATIVE) mg/dL Urine Occult Blood (NEGATIVE) Urine Nitrite (NEGATIVE) Urine Bilirubin (NEGATIVE) Urine Ictotest Urine Urobilinogen (<2.0) EU/dL Ur Leukocyte Esterase (NEGATIVE) Urine RBC (0-2/HPF) Urine WBC (0-5/HPF) Ur Epithelial Cells (NONE-FEW) Amorphous Sediment (NEGATIVE) Urine Bacteria (NEGATIVE) Urine Mucus (NONE-MOD) 05/16/19 05/16/19 Range/Units 13:38 15:15 WBC (4.0-11.0) K/uL RBC (4.30-5.90) M/uL Hgb (12.0-16.0) g/dL Hct (36.0-46.0) % MCV (80.0-98.0) fL MCH (27.0-32.0) pg MCHC (31.0-37.0) g/dL RDW Std Deviation (28.0-62.0) fl RDW Coeff of Kary (11.0-15.0) % Plt Count (150-400) K/uL MPV (7.40-12.00) fL Neut % (Auto) (48.0-80.0) % Lymph % (Auto) (16.0-40.0) % [place] % (Auto) (0.0-15.0) % Eos % (Auto) (0.0-7.0) % Baso % (Auto) (0.0-1.5) % Neut # (Auto) (1.4-5.7) K/uL Lymph # (Auto) (0.6-2.4) K/uL [place] # (Auto) (0.0-0.8) K/uL Eos # (Auto) (0.0-0.7) K/uL Baso # (Auto) (0.0-0.1) K/uL Nucleated RBC % /100WBC Nucleated RBCs # K/uL Ionized Calcium 6.2 H (4.6-5.1) mg/dL Lactate (0.20-2.00) mmol/L Sodium (136-145) mmol/L Potassium (3.5-5.1) mmol/L Chloride (98-107) mmol/L Carbon Dioxide (21.0-32.0) mmol/L BUN (7.0-18.0) mg/dL Creatinine (0.6-1.0) mg/dL Est Cr Clr Drug Dosing Estimated GFR (MDRD) ml/min Glucose (74-106) mg/dL Calcium (8.5-10.1) mg/dL Total Bilirubin (0.2-1.0) mg/dL AST (15-37) IU/L ALT (14-63) IU/L Alkaline Phosphatase (46-116) U/L Total Protein (6.4-8.2) g/dL Albumin (3.4-5.0) g/dL Globulin (2.6-4.0) g/dL Albumin/Globulin Ratio (0.9-1.6) Urine Color YELLOW Urine Appearance CLOUDY Urine pH 8.0 (5.0-8.0) Ur Specific [place] 1.020 (1.001-1.035) Urine Protein NEGATIVE (NEGATIVE) mg/dL Urine Glucose (UA) NEGATIVE (NEGATIVE) mg/dL Urine Ketones NEGATIVE (NEGATIVE) mg/dL Urine Occult Blood NEGATIVE (NEGATIVE) Urine Nitrite NEGATIVE (NEGATIVE) Urine Bilirubin SMALL H (NEGATIVE) Urine Ictotest NEGATIVE Urine Urobilinogen 0.2 (<2.0) EU/dL Ur Leukocyte Esterase LARGE H (NEGATIVE) Urine RBC 0-3 (0-2/HPF) Urine WBC TO NUMEROUS TO COUNT H (0-5/HPF) Ur Epithelial Cells MODERATE (NONE-FEW) Amorphous Sediment MODERATE (NEGATIVE) Urine Bacteria 4+ H (NEGATIVE) Urine Mucus LIGHT (NONE-MOD) Result Diagrams: 05/16/19 13:32 05/16/19 13:32 - Problem List (1) SBO (small bowel obstruction) SNOMED Code(s): 996868280 ICD Code: K56.609 - UNSP INTESTNL OBST, UNSP TO PARTIAL VERSUS COMPLETE OBST Status: Acute Current Visit: No (2) Hypercalcemia SNOMED Code(s): 63693269 ICD Code: E83.52 - HYPERCALCEMIA Status: Acute Current Visit: Yes (3) UTI (urinary tract infection) SNOMED Code(s): 21344778 ICD Code: N39.0 - URINARY TRACT INFECTION, SITE NOT SPECIFIED Status: Chronic Priority: High Current Visit: No Qualifiers: Urinary tract infection type: acute cystitis Hematuria presence: without hematuria Qualified Code(s): N30.00 - Acute cystitis without hematuria (4) ESBL (extended spectrum beta-lactamase) producing bacteria infection SNOMED Code(s): 983836716 ICD Code: A49.9 - BACTERIAL INFECTION, UNSPECIFIED; Z16.12 - EXTENDED SPECTRUM BETA LACTAMASE (ESBL) RESISTANCE Status: Chronic Current Visit: Yes (5) Pleural effusion on right SNOMED Code(s): 33747974 ICD Code: J90 - PLEURAL EFFUSION, NOT ELSEWHERE CLASSIFIED Status: Acute Current Visit: No (6) DMII (diabetes mellitus, type 2) SNOMED Code(s): 65626295 ICD Code: E11.9 - TYPE 2 DIABETES MELLITUS WITHOUT COMPLICATIONS Status: Chronic Priority: Medium Current Visit: No Qualifiers: Diabetes mellitus medical terminologist insulin use: without medical terminologist use Diabetes mellitus complication status: without complication Qualified Code(s): E11.9 - Type 2 diabetes mellitus without complications (7) GERD (gastroesophageal reflux disease) SNOMED Code(s): 798233648 ICD Code: K21.9 - GASTRO-ESOPHAGEAL REFLUX DISEASE WITHOUT ESOPHAGITIS Status: Chronic Priority: Low Current Visit: No Qualifiers: Esophagitis presence: without esophagitis Qualified Code(s): K21.9 - Gastro -esophageal reflux disease without esophagitis (8) HTN (hypertension) SNOMED Code(s): 47531523 ICD Code: I10 - ESSENTIAL (PRIMARY) HYPERTENSION Status: Chronic Priority : Medium Current Visit: No Qualifiers: Hypertension type: unspecified Qualified Code(s): I10 - Essential (primary ) hypertension Problem List Initiated/Reviewed/Updated: Yes Orders Last 24hrs: Active Orders 24 hr Category Date Time Status Admission Status [Patient Status] [ADT] Stat ADT 05/16/19 15:17 Active Iqbal Catheter Insertion [Insert Urinary Catheter] [OM. Care 05/16/19 15:30 Ordered PC] Q24H Urinary Catheter Assessment [RC] ASDIRECTED Care 05/16/19 15:28 Active CULTURE BLOOD [BC] Stat Lab 05/16/19 13:39 Received CULTURE BLOOD [BC] Stat Lab 05/16/19 13:55 Received CULTURE URINE [RM] Stat Lab 05/16/19 15:15 Received Meropenem [Merrem] Med 05/16/19 16:15 Ordered 0.5 gm IV Q12H Sodium Chloride 0.9% [Normal Saline] 500 ml Med 05/16/19 15:15 Active IV .BOLUS Sodium Chloride 0.9% [Saline Flush] Med 05/16/19 13:13 Active 10 ml FLUSH ASDIRECTED PRN Sodium Chloride 0.9% [Saline Flush] Med 05/16/19 13:13 Active 2.5 ml FLUSH ASDIRECTED PRN Blood Culture x2 Reflex Set [OM.PC] Stat Oth 05/16/19 13:23 Ordered Saline Lock Insert [OM.PC] Stat Oth 05/16/19 13:13 Ordered Medication Orders Sodium Chloride (Normal Saline) 500 mls @ 999 mls/hr IV .BOLUS [place] Last Admin: 05/16/19 15:15 Dose: 999 mls/hr Meropenem (Merrem) 0.5 gm IV Q12H [place] Sodium Chloride (Saline Flush) 10 ml FLUSH ASDIRECTED PRN PRN Reason: Keep Vein Open Last Admin: 05/16/19 15:15 Dose: 10 ml Sodium Chloride (Saline Flush) 2.5 ml FLUSH ASDIRECTED PRN PRN Reason: Keep Vein Open Last Admin: 05/16/19 15:15 Dose: 2.5 ml Assessment/Plan Comment:: This 88 year old female admitted with SBO, UTI and hypercalcemia 1. SBO vs ileus: Bowel rest for now. Ice chips ok. repeat abdominal xray in am. Likely secondary to chronic pain medications 2. UTI: Has hx os ESBL E coli in urine. Will stop Rocephin and treat with Meropenem. Has allergy to Ertapenem, but has received meropenem with no concerns. Monitor. 3. Hypercalcemia: Recheck in AM. Monitor and give IVFs. No hx of cancer per family. 4. DM Type 2: Monitor BS Q6hr while NPO. 5. HTN: Stable, will monitor. VTE prophylaxis: Heparin Dispo: 1-3 days CODE STATUS: DNR, did speak with daughter in law at bedside, they may consider Hospice. Will place a consult and they will discuss further with family. <Tramaine Segovia M - Last Filed: 05/16/19 17:09> H&P History of Present Illness - General Admit Problem/Dx: Admission Diagnosis/Problem Admission Diagnosis/Problem Hypercalcemia I have examined the patient independently of Autumn Sinclair CNP. I have discussed the case with her. I have reviewed and agree with the examination and plan as outlined by her. Please see orders. May need hospice soon. Exam - Vital Signs Vital Signs: Last Vital Signs Temp 36.2 C 05/16/19 12:59 Pulse 59 L 05/16/19 15:43 Resp 18 05/16/19 15:43 BP 124/59 L 05/16/19 15:43 Pulse Ox 98 05/16/19 15:43 - Patient Data Lab Results Last 24 hrs: Laboratory Results - last 24 hr 05/16/19 05/16/19 05/16/19 Range/Units 13:32 13:32 13:32 WBC 11.27 H (4.0-11.0) K/uL RBC 4.80 (4.30-5.90) M/uL Hgb 13.1 (12.0-16.0) g/dL Hct 42.5 (36.0-46.0) % MCV 88.5 (80.0-98.0) fL MCH 27.3 (27.0-32.0) pg MCHC 30.8 L (31.0-37.0) g/dL RDW Std Deviation 53.4 (28.0-62.0) fl RDW Coeff of Kary 17 H (11.0-15.0) % Plt Count 199 (150-400) K/uL MPV 9.30 (7.40-12.00) fL Neut % (Auto) 59.5 (48.0-80.0) % Lymph % (Auto) 26.0 (16.0-40.0) % [place] % (Auto) 12.2 (0.0-15.0) % Eos % (Auto) 2.2 (0.0-7.0) % Baso % (Auto) 0.1 (0.0-1.5) % Neut # (Auto) 6.7 H (1.4-5.7) K/uL Lymph # (Auto) 2.9 H (0.6-2.4) K/uL [place] # (Auto) 1.4 H (0.0-0.8) K/uL Eos # (Auto) 0.3 (0.0-0.7) K/uL Baso # (Auto) 0.0 (0.0-0.1) K/uL Nucleated RBC % 0.0 /100WBC Nucleated RBCs # 0 K/uL Ionized Calcium (4.6-5.1) mg/dL Lactate 1.1 (0.20-2.00) mmol/L Sodium 143 (136-145) mmol/L Potassium 3.9 (3.5-5.1) mmol/L Chloride 99 (98-107) mmol/L Carbon Dioxide 38.1 H (21.0-32.0) mmol/L BUN 40 H (7.0-18.0) mg/dL Creatinine 2.1 H (0.6-1.0) mg/dL Est Cr Clr Drug Dosing TNP Estimated GFR (MDRD) 22.3 ml/min Glucose 73 L (74-106) mg/dL POC Glucose (60-110) mg/dL Calcium 12.9 H (8.5-10.1) mg/dL Total Bilirubin 0.6 (0.2-1.0) mg/dL AST 16 (15-37) IU/L ALT 21 (14-63) IU/L Alkaline Phosphatase 98 (46-116) U/L Total Protein 7.1 (6.4-8.2) g/dL Albumin 2.7 L (3.4-5.0) g/dL Globulin 4.4 H (2.6-4.0) g/dL Albumin/Globulin Ratio 0.6 L (0.9-1.6) Urine Color Urine Appearance Urine pH (5.0-8.0) Ur Specific [place] (1.001-1.035) Urine Protein (NEGATIVE) mg/dL Urine Glucose (UA) (NEGATIVE) mg/dL Urine Ketones (NEGATIVE) mg/dL Urine Occult Blood (NEGATIVE) Urine Nitrite (NEGATIVE) Urine Bilirubin (NEGATIVE) Urine Ictotest Urine Urobilinogen (<2.0) EU/dL Ur Leukocyte Esterase (NEGATIVE) Urine RBC (0-2/HPF) Urine WBC (0-5/HPF) Ur Epithelial Cells (NONE-FEW) Amorphous Sediment (NEGATIVE) Urine Bacteria (NEGATIVE) Urine Mucus (NONE-MOD) 05/16/19 05/16/19 05/16/19 Range/Units 13:38 15:15 16:54 WBC (4.0-11.0) K/uL RBC (4.30-5.90) M/uL Hgb (12.0-16.0) g/dL Hct (36.0-46.0) % MCV (80.0-98.0) fL MCH (27.0-32.0) pg MCHC (31.0-37.0) g/dL RDW Std Deviation (28.0-62.0) fl RDW Coeff of [place] (11.0-15.0) % Plt Count (150-400) K/uL MPV (7.40-12.00) fL Neut % (Auto) (48.0-80.0) % Lymph % (Auto) (16.0-40.0) % [place] % (Auto) (0.0-15.0) % Eos % (Auto) (0.0-7.0) % Baso % (Auto) (0.0-1.5) % Neut # (Auto) (1.4-5.7) K/uL Lymph # (Auto) (0.6-2.4) K/uL [place] # (Auto) (0.0-0.8) K/uL Eos # (Auto) (0.0-0.7) K/uL Baso # (Auto) (0.0-0.1) K/uL Nucleated RBC % /100WBC Nucleated RBCs # K/uL Ionized Calcium 6.2 H (4.6-5.1) mg/dL Lactate (0.20-2.00) mmol/L Sodium (136-145) mmol/L Potassium (3.5-5.1) mmol/L Chloride (98-107) mmol/L Carbon Dioxide (21.0-32.0) mmol/L BUN (7.0-18.0) mg/dL Creatinine (0.6-1.0) mg/dL Est Cr Clr Drug Dosing Estimated GFR (MDRD) ml/min Glucose (74-106) mg/dL POC Glucose 76 (60-110) mg/dL Calcium (8.5-10.1) mg/dL Total Bilirubin (0.2-1.0) mg/dL AST (15-37) IU/L ALT (14-63) IU/L Alkaline Phosphatase (46-116) U/L Total Protein (6.4-8.2) g/dL Albumin (3.4-5.0) g/dL Globulin (2.6-4.0) g/dL Albumin/Globulin Ratio (0.9-1.6) Urine Color YELLOW Urine Appearance CLOUDY Urine pH 8.0 (5.0-8.0) Ur Specific [place] 1.020 (1.001-1.035) Urine Protein NEGATIVE (NEGATIVE) mg/dL Urine Glucose (UA) NEGATIVE (NEGATIVE) mg/dL Urine Ketones NEGATIVE (NEGATIVE) mg/dL Urine Occult Blood NEGATIVE (NEGATIVE) Urine Nitrite NEGATIVE (NEGATIVE) Urine Bilirubin SMALL H (NEGATIVE) Urine Ictotest NEGATIVE Urine Urobilinogen 0.2 (<2.0) EU/dL Ur Leukocyte Esterase LARGE H (NEGATIVE) Urine RBC 0-3 (0-2/HPF) Urine WBC TO NUMEROUS TO COUNT H (0-5/HPF) Ur Epithelial Cells MODERATE (NONE-FEW) Amorphous Sediment MODERATE (NEGATIVE) Urine Bacteria 4+ H (NEGATIVE) Urine Mucus LIGHT (NONE-MOD) Result Diagrams: 05/16/19 13:32 05/16/19 13:32 Orders Last 24hrs: Active Orders 24 hr Category Date Time Status Admission Status [Patient Status] [ADT] Stat ADT 05/16/19 15:17 Active Blood Glucose Check, Bedside [RC] Q6HR Care 05/16/19 16:56 Active Iqbal Catheter Insertion [Insert Urinary Catheter] [OM. Care 05/16/19 15:30 Ordered PC] Q24H Height and Weight [RC] DAILY Care 05/16/19 16:53 Active Intake and Output [RC] Q12H Care 05/16/19 16:53 Active Oxygen Therapy [RC] PRN Care 05/16/19 16:53 Active RT Aerosol Therapy [RC] ASDIRECTED Care 05/16/19 16:55 Active Up With Assistance [RC] ASDIRECTED Care 05/16/19 16:53 Active Urinary Catheter Assessment [RC] ASDIRECTED Care 05/16/19 15:28 Active VTE/DVT Education [RC] PER UNIT ROUTINE Care 05/16/19 16:53 Active Vital Signs [RC] Q4H Care 05/16/19 16:53 Active Consult to Wound Care Services [CONS] Routine Cons 05/16/19 16:56 Active Nothing Per Oral Diet [DIET] Diet 05/17/19 Breakfast Active CBC WITH AUTO DIFF [HEME] AM Lab 05/17/19 05:11 Ordered COMPREHENSIVE METABOLIC PN,CMP [CHEM] AM Lab 05/17/19 05:11 Ordered CULTURE BLOOD [BC] Stat Lab 05/16/19 13:39 Received CULTURE BLOOD [BC] Stat Lab 05/16/19 13:55 Received CULTURE URINE [RM] Stat Lab 05/16/19 15:15 Received Albuterol/Ipratropium [DuoNeb 3.0-0.5 MG/3 ML] Med 05/16/19 16:53 Active 3 ml NEB Q4HRRT PRN Bisacodyl [Dulcolax] Med 05/16/19 17:00 Active 10 mg RECTAL Q24H PRN Carboxymethylcellulose Sodium [Refresh Plus 0.5%] Med 05/16/19 22:00 Active 1 each EYEBOTH TID Dextrose 5%-0.45% NaCl [Dextrose 5%-1/2 NS] 1,000 ml Med 05/16/19 17:15 Active IV ASDIRECTED Heparin Sodium Med 05/16/19 17:00 Active 5,000 units SUBCUT Q12H Meropenem Premix [Meropenem] 500 mg Med 05/16/19 17:15 Active Premix Bag 1 bag IV Q12H Morphine Med 05/16/19 17:01 Active 2 mg IVPUSH Q4H PRN Nystatin [Nystop] Med 05/16/19 17:00 Active 1 gm TOP Q8H PRN Ondansetron [Zofran] Med 05/16/19 16:53 Active 4 mg IVPUSH Q4H PRN Sodium Chloride 0.65% [Freeborn Nasal [place]] Med 05/16/19 17:00 Active 0 ml NASBOTH QID PRN Sodium Chloride 0.9% [Normal Saline] 500 ml Med 05/16/19 15:15 Active IV .BOLUS Sodium Chloride 0.9% [Saline Flush] Med 05/16/19 13:13 Active 10 ml FLUSH ASDIRECTED PRN Sodium Chloride 0.9% [Saline Flush] Med 05/16/19 13:13 Active 2.5 ml FLUSH ASDIRECTED PRN Blood Culture x2 Reflex Set [OM.PC] Stat Oth 05/16/19 13:23 Ordered Saline Lock Insert [OM.PC] Stat Oth 05/16/19 13:13 Ordered Resuscitation Status Routine Resus Stat 05/16/19 16:53 Ordered Medication Orders Albuterol/Ipratropium (Duoneb 3.0-0.5 Mg/3 Ml) 3 ml NEB Q4HRRT PRN PRN Reason: Shortness Of Breath/wheezing Artificial Tears (Refresh Plus 0.5%) 1 each EYEBOTH TID [place] Bisacodyl (Dulcolax) 10 mg RECTAL Q24H PRN PRN Reason: Constipation Heparin Sodium (Porcine) (Heparin Sodium) 5,000 units SUBCUT Q12H [facility] Sodium Chloride (Normal Saline) 500 mls @ 999 mls/hr IV .BOLUS [place] Last Admin: 05/16/19 15:15 Dose: 999 mls/hr Dextrose/Sodium Chloride (Dextrose 5%-1/2 Ns) 1,000 mls @ 100 mls/hr IV ASDIRECTED [facility] Meropenem/Sodium Chloride 500 (mg/ Premix) 50 mls @ 100 mls/hr IV Q12H [facility] Morphine Sulfate (Morphine) 2 mg IVPUSH Q4H PRN PRN Reason: Pain Nystatin (Nystop) 1 gm TOP Q8H PRN PRN Reason: Rash Ondansetron HCl (Zofran) 4 mg IVPUSH Q4H PRN PRN Reason: Nausea Sodium Chloride (Saline Flush) 10 ml FLUSH ASDIRECTED PRN PRN Reason: Keep Vein Open Last Admin: 05/16/19 15:15 Dose: 10 ml Sodium Chloride (Saline Flush) 2.5 ml FLUSH ASDIRECTED PRN PRN Reason: Keep Vein Open Last Admin: 05/16/19 15:15 Dose: 2.5 ml Sodium Chloride (Freeborn Nasal [place]) 0 ml NASBOTH QID PRN PRN Reason: Dryness
[2019-05-16] MEDS ORDERED: Albuterol/Ipratropium 3.0-0.5 MG/3 ML Neb Soln NEB PRN (16:53)
[2019-05-16] MEDS ORDERED: Ondansetron 4 MG/2 ML SDV IVPUSH PRN (16:53)
[2019-05-16] MEDS ORDERED: Bisacodyl 10 MG Supp RECTAL PRN (17:00)
[2019-05-16] MEDS ORDERED: Sodium Chloride 0.65% Nasal Spray 45 ML Bottle NASBOTH PRN (17:00)
[2019-05-16] MEDS ORDERED: Nystatin Topical Powder 15 GM Bottle TOP PRN (17:00)
[2019-05-16] MEDS ORDERED: Morphine 2 MG/ML Syringe IVPUSH PRN (17:01)
[2019-05-16] MEDS ORDERED: Insulin Aspart 100 Units/ML 3 ML Pen SUBCUT STA (17:02)
[2019-05-16] MEDS: Dextrose 5%-0.45% NaCl 1,000 ML IV SCH (17:28)
[2019-05-16] MEDS: Heparin Sodium 5,000 Units/ML Vial SUBCUT SCH (17:37)
[2019-05-16] MEDS: MEROPENEM IV SCH ×2 (17:37)
[2019-05-16] MEDS: Carboxymethylcellulose Sodium 0.5% Ophth Soln 0.4 ML UD Box of 30 EYEBOTH SCH (22:45)
[2019-05-17] MEDS: Dextrose 5%-0.45% NaCl 1,000 ML IV SCH ×2 (03:40→13:16)
[2019-05-17] MEDS: MEROPENEM IV SCH ×4 (04:50→17:08)
[2019-05-17] MEDS: Heparin Sodium 5,000 Units/ML Vial SUBCUT SCH ×2 (04:52→17:07)
[2019-05-17] MEDS: Carboxymethylcellulose Sodium 0.5% Ophth Soln 0.4 ML UD Box of 30 EYEBOTH SCH ×3 (05:32→21:21)
--- NOTE | 2019-05-17 09:20 | CR ---
EXAMINATION: Abdomen HISTORY: Mild bowel obstruction COMPARISON: CT dated 05/16/2019 TECHNIQUE: AP views of the abdomen FINDINGS: There is a right pleural effusion again noted. Moderate amount of stool and gas noted within the colon without definitive dilated loops of small bowel on today's examination. No organomegaly. No abnormal calcifications project over the kidneys. Clips project over the left abdomen and pelvis. Degenerative changes noted within the lumbar spine and hips. IMPRESSION: 1. Moderate amount of stool and gas throughout the colon without a significant amount of the rectum. Definitive dilated loops of small bowel are not noted. 2. Degenerative changes within the lumbar spine and hips. 3. Small right pleural effusion and likely trace left.
[2019-05-17] MEDS ORDERED: Bisacodyl 10 MG Supp RECTAL ONE (10:00)
--- NOTE | 2019-05-17 10:01 | PCM.PN ---
<Autumn Sinclair M - Last Filed: 05/17/19 10:08> - General Info Date of Service: 05/17/19 Admission Dx/Problem (Free Text): Admission Diagnosis/Problem Admission Diagnosis/Problem Hypercalcemia, SBO, UTI Subjective Update: Alert, not oriented. Reports abdominal pain. Asking for orange juice. Denies chest pain or SOB. No family at bedside. Functional Status: Denies: Ambulating - Review of Systems General: Reports: Malaise HEENT: Reports: No Symptoms. Denies: Headaches, Sore Throat Pulmonary: Reports: No Symptoms. Denies: Shortness of Breath Cardiovascular: Reports: No Symptoms. Denies: Chest Pain Gastrointestinal: Reports: Abdominal Pain. Denies: Constipation, Nausea, Vomiting Genitourinary: Reports: No Symptoms Skin: Reports: No Symptoms - Patient Data Vitals - Most Recent: Last Vital Signs Temp 97.3 F 05/17/19 08:04 Pulse 56 L 05/17/19 08:04 Resp 17 05/17/19 08:04 BP 131/33 L 05/17/19 08:04 Pulse Ox 99 05/17/19 08:04 Weight - Most Recent: 82.463 kg I&O - Last 24 Hours: Intake & Output 05/16/19 05/17/19 05/17/19 22:59 06:59 14:59 Intake Total 50 1014 Output Total 350 Balance 50 664 Lab Results Last 24 Hours: Laboratory Results - last 24 hr 05/16/19 05/16/19 05/16/19 Range/Units 13:32 13:32 13:32 WBC 11.27 H (4.0-11.0) K/uL RBC 4.80 (4.30-5.90) M/uL Hgb 13.1 (12.0-16.0) g/dL Hct 42.5 (36.0-46.0) % MCV 88.5 (80.0-98.0) fL MCH 27.3 (27.0-32.0) pg MCHC 30.8 L (31.0-37.0) g/dL RDW Std Deviation 53.4 (28.0-62.0) fl RDW Coeff of Kary 17 H (11.0-15.0) % Plt Count 199 (150-400) K/uL MPV 9.30 (7.40-12.00) fL Neut % (Auto) 59.5 (48.0-80.0) % Lymph % (Auto) 26.0 (16.0-40.0) % [place] % (Auto) 12.2 (0.0-15.0) % Eos % (Auto) 2.2 (0.0-7.0) % Baso % (Auto) 0.1 (0.0-1.5) % Neut # (Auto) 6.7 H (1.4-5.7) K/uL Lymph # (Auto) 2.9 H (0.6-2.4) K/uL [place] # (Auto) 1.4 H (0.0-0.8) K/uL Eos # (Auto) 0.3 (0.0-0.7) K/uL Baso # (Auto) 0.0 (0.0-0.1) K/uL Nucleated RBC % 0.0 /100WBC Nucleated RBCs # 0 K/uL Ionized Calcium (4.6-5.1) mg/dL Lactate 1.1 (0.20-2.00) mmol/L Sodium 143 (136-145) mmol/L Potassium 3.9 (3.5-5.1) mmol/L Chloride 99 (98-107) mmol/L Carbon Dioxide 38.1 H (21.0-32.0) mmol/L BUN 40 H (7.0-18.0) mg/dL Creatinine 2.1 H (0.6-1.0) mg/dL Est Cr Clr Drug Dosing TNP Estimated GFR (MDRD) 22.3 ml/min Glucose 73 L (74-106) mg/dL POC Glucose (60-110) mg/dL Calcium 12.9 H (8.5-10.1) mg/dL Total Bilirubin 0.6 (0.2-1.0) mg/dL AST 16 (15-37) IU/L ALT 21 (14-63) IU/L Alkaline Phosphatase 98 (46-116) U/L Total Protein 7.1 (6.4-8.2) g/dL Albumin 2.7 L (3.4-5.0) g/dL Globulin 4.4 H (2.6-4.0) g/dL Albumin/Globulin Ratio 0.6 L (0.9-1.6) Urine Color Urine Appearance Urine pH (5.0-8.0) Ur Specific [place] (1.001-1.035) Urine Protein (NEGATIVE) mg/dL Urine Glucose (UA) (NEGATIVE) mg/dL Urine Ketones (NEGATIVE) mg/dL Urine Occult Blood (NEGATIVE) Urine Nitrite (NEGATIVE) Urine Bilirubin (NEGATIVE) Urine Ictotest Urine Urobilinogen (<2.0) EU/dL Ur Leukocyte Esterase (NEGATIVE) Urine RBC (0-2/HPF) Urine WBC (0-5/HPF) Ur Epithelial Cells (NONE-FEW) Amorphous Sediment (NEGATIVE) Urine Bacteria (NEGATIVE) Urine Mucus (NONE-MOD) 05/16/19 05/16/19 05/16/19 Range/Units 13:38 15:15 16:54 WBC (4.0-11.0) K/uL RBC (4.30-5.90) M/uL Hgb (12.0-16.0) g/dL Hct (36.0-46.0) % MCV (80.0-98.0) fL MCH (27.0-32.0) pg MCHC (31.0-37.0) g/dL RDW Std Deviation (28.0-62.0) fl RDW Coeff of Kary (11.0-15.0) % Plt Count (150-400) K/uL MPV (7.40-12.00) fL Neut % (Auto) (48.0-80.0) % Lymph % (Auto) (16.0-40.0) % [place] % (Auto) (0.0-15.0) % Eos % (Auto) (0.0-7.0) % Baso % (Auto) (0.0-1.5) % Neut # (Auto) (1.4-5.7) K/uL Lymph # (Auto) (0.6-2.4) K/uL [place] # (Auto) (0.0-0.8) K/uL Eos # (Auto) (0.0-0.7) K/uL Baso # (Auto) (0.0-0.1) K/uL Nucleated RBC % /100WBC Nucleated RBCs # K/uL Ionized Calcium 6.2 H (4.6-5.1) mg/dL Lactate (0.20-2.00) mmol/L Sodium (136-145) mmol/L Potassium (3.5-5.1) mmol/L Chloride (98-107) mmol/L Carbon Dioxide (21.0-32.0) mmol/L BUN (7.0-18.0) mg/dL Creatinine (0.6-1.0) mg/dL Est Cr Clr Drug Dosing Estimated GFR (MDRD) ml/min Glucose (74-106) mg/dL POC Glucose 76 (60-110) mg/dL Calcium (8.5-10.1) mg/dL Total Bilirubin (0.2-1.0) mg/dL AST (15-37) IU/L ALT (14-63) IU/L Alkaline Phosphatase (46-116) U/L Total Protein (6.4-8.2) g/dL Albumin (3.4-5.0) g/dL Globulin (2.6-4.0) g/dL Albumin/Globulin Ratio (0.9-1.6) Urine Color YELLOW Urine Appearance CLOUDY Urine pH 8.0 (5.0-8.0) Ur Specific [place] 1.020 (1.001-1.035) Urine Protein NEGATIVE (NEGATIVE) mg/dL Urine Glucose (UA) NEGATIVE (NEGATIVE) mg/dL Urine Ketones NEGATIVE (NEGATIVE) mg/dL Urine Occult Blood NEGATIVE (NEGATIVE) Urine Nitrite NEGATIVE (NEGATIVE) Urine Bilirubin SMALL H (NEGATIVE) Urine Ictotest NEGATIVE Urine Urobilinogen 0.2 (<2.0) EU/dL Ur Leukocyte Esterase LARGE H (NEGATIVE) Urine RBC 0-3 (0-2/HPF) Urine WBC TO NUMEROUS TO COUNT H (0-5/HPF) Ur Epithelial Cells MODERATE (NONE-FEW) Amorphous Sediment MODERATE (NEGATIVE) Urine Bacteria 4+ H (NEGATIVE) Urine Mucus LIGHT (NONE-MOD) 05/17/19 05/17/19 05/17/19 Range/Units 00:40 04:45 04:45 WBC 7.63 (4.0-11.0) K/uL RBC 3.66 L (4.30-5.90) M/uL Hgb 9.8 L (12.0-16.0) g/dL Hct 32.3 L (36.0-46.0) % MCV 88.3 (80.0-98.0) fL MCH 26.8 L (27.0-32.0) pg MCHC 30.3 L (31.0-37.0) g/dL RDW Std Deviation 52.7 (28.0-62.0) fl RDW Coeff of Kary 17 H (11.0-15.0) % Plt Count 157 (150-400) K/uL MPV 9.40 (7.40-12.00) fL Neut % (Auto) 63.4 (48.0-80.0) % Lymph % (Auto) 21.5 (16.0-40.0) % [place] % (Auto) 12.8 (0.0-15.0) % Eos % (Auto) 2.0 (0.0-7.0) % Baso % (Auto) 0.3 (0.0-1.5) % Neut # (Auto) 4.8 (1.4-5.7) K/uL Lymph # (Auto) 1.6 (0.6-2.4) K/uL [place] # (Auto) 1.0 H (0.0-0.8) K/uL Eos # (Auto) 0.2 (0.0-0.7) K/uL Baso # (Auto) 0.0 (0.0-0.1) K/uL Nucleated RBC % 0.0 /100WBC Nucleated RBCs # 0 K/uL Ionized Calcium (4.6-5.1) mg/dL Lactate (0.20-2.00) mmol/L Sodium 141 (136-145) mmol/L Potassium 3.5 (3.5-5.1) mmol/L Chloride 105 (98-107) mmol/L Carbon Dioxide 35.1 H (21.0-32.0) mmol/L BUN 39 H (7.0-18.0) mg/dL Creatinine 2.0 H (0.6-1.0) mg/dL Est Cr Clr Drug Dosing 18.90 Estimated GFR (MDRD) 23.6 ml/min Glucose 138 H (74-106) mg/dL POC Glucose 135 H (60-110) mg/dL Calcium 10.7 H (8.5-10.1) mg/dL Total Bilirubin 0.3 (0.2-1.0) mg/dL AST 10 L (15-37) IU/L ALT 16 (14-63) IU/L Alkaline Phosphatase 70 (46-116) U/L Total Protein 5.1 L (6.4-8.2) g/dL Albumin 1.9 L (3.4-5.0) g/dL Globulin 3.2 (2.6-4.0) g/dL Albumin/Globulin Ratio 0.6 L (0.9-1.6) Urine Color Urine Appearance Urine pH (5.0-8.0) Ur Specific [place] (1.001-1.035) Urine Protein (NEGATIVE) mg/dL Urine Glucose (UA) (NEGATIVE) mg/dL Urine Ketones (NEGATIVE) mg/dL Urine Occult Blood (NEGATIVE) Urine Nitrite (NEGATIVE) Urine Bilirubin (NEGATIVE) Urine Ictotest Urine Urobilinogen (<2.0) EU/dL Ur Leukocyte Esterase (NEGATIVE) Urine RBC (0-2/HPF) Urine WBC (0-5/HPF) Ur Epithelial Cells (NONE-FEW) Amorphous Sediment (NEGATIVE) Urine Bacteria (NEGATIVE) Urine Mucus (NONE-MOD) 05/17/19 Range/Units 06:01 WBC (4.0-11.0) K/uL RBC (4.30-5.90) M/uL Hgb (12.0-16.0) g/dL Hct (36.0-46.0) % MCV (80.0-98.0) fL MCH (27.0-32.0) pg MCHC (31.0-37.0) g/dL RDW Std Deviation (28.0-62.0) fl RDW Coeff of Kary (11.0-15.0) % Plt Count (150-400) K/uL MPV (7.40-12.00) fL Neut % (Auto) (48.0-80.0) % Lymph % (Auto) (16.0-40.0) % [place] % (Auto) (0.0-15.0) % Eos % (Auto) (0.0-7.0) % Baso % (Auto) (0.0-1.5) % Neut # (Auto) (1.4-5.7) K/uL Lymph # (Auto) (0.6-2.4) K/uL [place] # (Auto) (0.0-0.8) K/uL Eos # (Auto) (0.0-0.7) K/uL Baso # (Auto) (0.0-0.1) K/uL Nucleated RBC % /100WBC Nucleated RBCs # K/uL Ionized Calcium (4.6-5.1) mg/dL Lactate (0.20-2.00) mmol/L Sodium (136-145) mmol/L Potassium (3.5-5.1) mmol/L Chloride (98-107) mmol/L Carbon Dioxide (21.0-32.0) mmol/L BUN (7.0-18.0) mg/dL Creatinine (0.6-1.0) mg/dL Est Cr Clr Drug Dosing Estimated GFR (MDRD) ml/min Glucose (74-106) mg/dL POC Glucose 145 H (60-110) mg/dL Calcium (8.5-10.1) mg/dL Total Bilirubin (0.2-1.0) mg/dL AST (15-37) IU/L ALT (14-63) IU/L Alkaline Phosphatase (46-116) U/L Total Protein (6.4-8.2) g/dL Albumin (3.4-5.0) g/dL Globulin (2.6-4.0) g/dL Albumin/Globulin Ratio (0.9-1.6) Urine Color Urine Appearance Urine pH (5.0-8.0) Ur Specific [place] (1.001-1.035) Urine Protein (NEGATIVE) mg/dL Urine Glucose (UA) (NEGATIVE) mg/dL Urine Ketones (NEGATIVE) mg/dL Urine Occult Blood (NEGATIVE) Urine Nitrite (NEGATIVE) Urine Bilirubin (NEGATIVE) Urine Ictotest Urine Urobilinogen (<2.0) EU/dL Ur Leukocyte Esterase (NEGATIVE) Urine RBC (0-2/HPF) Urine WBC (0-5/HPF) Ur Epithelial Cells (NONE-FEW) Amorphous Sediment (NEGATIVE) Urine Bacteria (NEGATIVE) Urine Mucus (NONE-MOD) Med Orders - Current: Current Medications Albuterol/Ipratropium (Duoneb 3.0-0.5 Mg/3 Ml) 3 ml NEB Q4HRRT PRN PRN Reason: Shortness Of Breath/wheezing Artificial Tears (Refresh Plus 0.5%) 1 each EYEBOTH TID [facility] Last Admin: 05/17/19 05:32 Dose: 1 drop Bisacodyl (Dulcolax) 10 mg RECTAL Q24H PRN PRN Reason: Constipation Bisacodyl (Dulcolax) 10 mg RECTAL ONETIME ONE Stop: 05/17/19 10:01 Heparin Sodium (Porcine) (Heparin Sodium) 5,000 units SUBCUT Q12H [facility] Last Admin: 05/17/19 04:52 Dose: 5,000 units Sodium Chloride (Normal Saline) 500 mls @ 999 mls/hr IV .BOLUS [facility] Last Admin: 05/16/19 15:15 Dose: 999 mls/hr Dextrose/Sodium Chloride (Dextrose 5%-1/2 Ns) 1,000 mls @ 100 mls/hr IV ASDIRECTED [facility] Last Admin: 05/17/19 03:40 Dose: 100 mls/hr Meropenem/Sodium Chloride 500 (mg/ Premix) 50 mls @ 100 mls/hr IV Q12H [facility] Last Admin: 05/17/19 04:50 Dose: 100 mls/hr Morphine Sulfate (Morphine) 2 mg IVPUSH Q4H PRN PRN Reason: Pain Nystatin (Nystop) 1 gm TOP Q8H PRN PRN Reason: Rash Ondansetron HCl (Zofran) 4 mg IVPUSH Q4H PRN PRN Reason: Nausea Sodium Chloride (Saline Flush) 10 ml FLUSH ASDIRECTED PRN PRN Reason: Keep Vein Open Last Admin: 05/16/19 15:15 Dose: 10 ml Sodium Chloride (Saline Flush) 2.5 ml FLUSH ASDIRECTED PRN PRN Reason: Keep Vein Open Last Admin: 05/16/19 15:15 Dose: 2.5 ml Sodium Chloride ([place] Nasal [place]) 0 ml NASBOTH QID PRN PRN Reason: Dryness Discontinued Medications Acetaminophen (Tylenol) 650 mg PO NOW ONE Stop: 05/16/19 16:14 Last Admin: 05/16/19 19:36 Dose: Not Given Furosemide (Lasix) 20 mg IVPUSH NOW ONE Stop: 05/16/19 14:45 Last Admin: 05/16/19 15:15 Dose: 20 mg Ceftriaxone Sodium/Dextrose 1 (gm/ Premix) 50 mls @ 100 mls/hr IV ONETIME ONE Stop: 05/16/19 16:24 Last Admin: 05/16/19 16:06 Dose: 100 mls/hr Insulin Aspart (Novolog) 14 unit SUBCUT NOW STA Stop: 05/16/19 17:03 Last Admin: 05/16/19 18:23 Dose: Not Given - Exam General: Alert, Cooperative, No Acute Distress. No: Oriented Lungs: Normal Respiratory Effort, Decreased Breath Sounds (bibasilar). No: Crackles Cardiovascular: Regular Rate, Regular Rhythm, No Murmurs GI/Abdominal Exam: Normal Bowel Sounds, Soft, Tender (diffusely) Extremities: Normal Inspection, Normal Range of Motion, Non-Tender, No Pedal Edema Wound/Incisions: Decubitis (stage 1 to coccyx, wound care consult in) Neurological: No New Focal Deficit Psy/Mental Status: Alert, Normal Affect, Normal Mood - Problem List & Annotations (1) SBO (small bowel obstruction) SNOMED Code(s): 489413247 Code(s): K56.609 - UNSP INTESTNL OBST, UNSP TO PARTIAL VERSUS COMPLETE OBST Status: Acute Current Visit: No (2) Hypercalcemia SNOMED Code(s): 33470910 Code(s): E83.52 - HYPERCALCEMIA Status: Acute Current Visit: Yes (3) UTI (urinary tract infection) SNOMED Code(s): 78143327 Code(s): N39.0 - URINARY TRACT INFECTION, SITE NOT SPECIFIED Status: Chronic Priority: High Current Visit: No Qualifiers: Urinary tract infection type: acute cystitis Hematuria presence: without hematuria Qualified Code(s): N30.00 - Acute cystitis without hematuria (4) ESBL (extended spectrum beta-lactamase) producing bacteria infection SNOMED Code(s): 276214253 Code(s): A49.9 - BACTERIAL INFECTION, UNSPECIFIED; Z16.12 - EXTENDED SPECTRUM BETA LACTAMASE (ESBL) RESISTANCE Status: Chronic Current Visit: Yes (5) Pleural effusion on right SNOMED Code(s): 03413256 Code(s): J90 - PLEURAL EFFUSION, NOT ELSEWHERE CLASSIFIED Status: Acute Current Visit: No (6) DMII (diabetes mellitus, type 2) SNOMED Code(s): 39620398 Code(s): E11.9 - TYPE 2 DIABETES MELLITUS WITHOUT COMPLICATIONS Status: Chronic Priority: Medium Current Visit: No Qualifiers: Diabetes mellitus body man insulin use: without body man use Diabetes mellitus complication status: without complication Qualified Code(s): E11.9 - Type 2 diabetes mellitus without complications (7) GERD (gastroesophageal reflux disease) SNOMED Code(s): 640916138 Code(s): K21.9 - GASTRO-ESOPHAGEAL REFLUX DISEASE WITHOUT ESOPHAGITIS Status: Chronic Priority: Low Current Visit: No Qualifiers: Esophagitis presence: without esophagitis Qualified Code(s): K21.9 - Gastro -esophageal reflux disease without esophagitis (8) HTN (hypertension) SNOMED Code(s): 59146725 Code(s): I10 - ESSENTIAL (PRIMARY) HYPERTENSION Status: Chronic Priority : Medium Current Visit: No Qualifiers: Hypertension type: unspecified Qualified Code(s): I10 - Essential (primary ) hypertension - Problem List Review Problem List Initiated/Reviewed/Updated: Yes - My Orders Last 24 Hours: My Active Orders 05/16/19 16:53 Height and Weight [RC] DAILY Intake and Output [RC] Q12H Oxygen Therapy [RC] PRN Up With Assistance [RC] ASDIRECTED VTE/DVT Education [RC] PER UNIT ROUTINE Vital Signs [RC] Q4H Albuterol/Ipratropium [DuoNeb 3.0-0.5 MG/3 ML] 3 ml NEB Q4HRRT PRN Ondansetron [Zofran] 4 mg IVPUSH Q4H PRN Resuscitation Status Routine 05/16/19 16:55 RT Aerosol Therapy [RC] ASDIRECTED 05/16/19 16:56 Blood Glucose Check, Bedside [RC] Q6HR Consult to Wound Care Services [CONS] Routine 05/16/19 17:00 Bisacodyl [Dulcolax] 10 mg RECTAL Q24H PRN Heparin Sodium 5,000 units SUBCUT Q12H Nystatin [Nystop] 1 gm TOP Q8H PRN Sodium Chloride 0.65% [[place] Nasal [place]] 0 ml NASBOTH QID PRN 05/16/19 17:01 Morphine 2 mg IVPUSH Q4H PRN 05/16/19 17:15 Dextrose 5%-0.45% NaCl [Dextrose 5%-1/2 NS] 1,000 ml IV ASDIRECTED Meropenem Premix [Meropenem] 500 mg Premix Bag 1 bag IV Q12H 05/16/19 22:00 Carboxymethylcellulose Sodium [Refresh Plus 0.5%] 1 each EYEBOTH TID 05/17/19 07:54 Consult to Hospice [CONS] Routine 05/17/19 10:00 Bisacodyl [Dulcolax] 10 mg RECTAL ONETIME ONE 05/17/19 Breakfast Nothing Per Oral Diet [DIET] - Plan Plan:: This 88 year old female admitted with SBO, UTI and hypercalcemia 1. SBO vs ileus: Had soft BM overnight, Abd xray this morning, reveals moderated stool and gas in colon no definite loops of small bowel are noted. Will give dulcolax and monitor. Reports continued abdominal pain. Bowel rest for now. Ice chips ok. Likely secondary to chronic pain medications 2. UTI: Has hx of ESBL E coli in urine. Continue with Meropenem. UC pending. 3. Hypercalcemia: Corrected Ca for this am is 12/3. Monitor and continue IVFs. No hx of cancer per family. Family is considering hospice, will hold off on work up for hypercalcemia 4. DM Type 2: Monitor BS Q6hr while NPO. Stable with D5 1/2 NS for now. Continue to monitor. 5. HTN: Stable, will monitor. VTE prophylaxis: Heparin Dispo: 1-3 days CODE STATUS: DNR, Hospice consult in. Will continue treatment for now. <Tramaine Segovia - Last Filed: 05/17/19 12:35> - General Info Admission Dx/Problem (Free Text): I have examined the patient independently of Autumn Sinclair CNP. I have discussed the case with her. I have reviewed and agree with the examination and plan as outlined by her. Please see orders. - Patient Data Vitals - Most Recent: Last Vital Signs Temp 36.3 C 05/17/19 08:04 Pulse 56 L 05/17/19 08:04 Resp 17 05/17/19 08:04 BP 131/33 L 05/17/19 08:04 Pulse Ox 99 05/17/19 08:04 I&O - Last 24 Hours: Intake & Output 05/16/19 05/17/19 05/17/19 22:59 06:59 14:59 Intake Total 50 1014 Output Total 350 Balance 50 664 Lab Results Last 24 Hours: Laboratory Results - last 24 hr 05/16/19 05/16/19 05/16/19 Range/Units 13:32 13:32 13:32 WBC 11.27 H (4.0-11.0) K/uL RBC 4.80 (4.30-5.90) M/uL Hgb 13.1 (12.0-16.0) g/dL Hct 42.5 (36.0-46.0) % MCV 88.5 (80.0-98.0) fL MCH 27.3 (27.0-32.0) pg MCHC 30.8 L (31.0-37.0) g/dL RDW Std Deviation 53.4 (28.0-62.0) fl RDW Coeff of Kary 17 H (11.0-15.0) % Plt Count 199 (150-400) K/uL MPV 9.30 (7.40-12.00) fL Neut % (Auto) 59.5 (48.0-80.0) % Lymph % (Auto) 26.0 (16.0-40.0) % [place] % (Auto) 12.2 (0.0-15.0) % Eos % (Auto) 2.2 (0.0-7.0) % Baso % (Auto) 0.1 (0.0-1.5) % Neut # (Auto) 6.7 H (1.4-5.7) K/uL Lymph # (Auto) 2.9 H (0.6-2.4) K/uL [place] # (Auto) 1.4 H (0.0-0.8) K/uL Eos # (Auto) 0.3 (0.0-0.7) K/uL Baso # (Auto) 0.0 (0.0-0.1) K/uL Nucleated RBC % 0.0 /100WBC Nucleated RBCs # 0 K/uL Ionized Calcium (4.6-5.1) mg/dL Lactate 1.1 (0.20-2.00) mmol/L Sodium 143 (136-145) mmol/L Potassium 3.9 (3.5-5.1) mmol/L Chloride 99 (98-107) mmol/L Carbon Dioxide 38.1 H (21.0-32.0) mmol/L BUN 40 H (7.0-18.0) mg/dL Creatinine 2.1 H (0.6-1.0) mg/dL Est Cr Clr Drug Dosing TNP Estimated GFR (MDRD) 22.3 ml/min Glucose 73 L (74-106) mg/dL POC Glucose (60-110) mg/dL Calcium 12.9 H (8.5-10.1) mg/dL Total Bilirubin 0.6 (0.2-1.0) mg/dL AST 16 (15-37) IU/L ALT 21 (14-63) IU/L Alkaline Phosphatase 98 (46-116) U/L Total Protein 7.1 (6.4-8.2) g/dL Albumin 2.7 L (3.4-5.0) g/dL Globulin 4.4 H (2.6-4.0) g/dL Albumin/Globulin Ratio 0.6 L (0.9-1.6) Urine Color Urine Appearance Urine pH (5.0-8.0) Ur Specific [place] (1.001-1.035) Urine Protein (NEGATIVE) mg/dL Urine Glucose (UA) (NEGATIVE) mg/dL Urine Ketones (NEGATIVE) mg/dL Urine Occult Blood (NEGATIVE) Urine Nitrite (NEGATIVE) Urine Bilirubin (NEGATIVE) Urine Ictotest Urine Urobilinogen (<2.0) EU/dL Ur Leukocyte Esterase (NEGATIVE) Urine RBC (0-2/HPF) Urine WBC (0-5/HPF) Ur Epithelial Cells (NONE-FEW) Amorphous Sediment (NEGATIVE) Urine Bacteria (NEGATIVE) Urine Mucus (NONE-MOD) 05/16/19 05/16/19 05/16/19 Range/Units 13:38 15:15 16:54 WBC (4.0-11.0) K/uL RBC (4.30-5.90) M/uL Hgb (12.0-16.0) g/dL Hct (36.0-46.0) % MCV (80.0-98.0) fL MCH (27.0-32.0) pg MCHC (31.0-37.0) g/dL RDW Std Deviation (28.0-62.0) fl RDW Coeff of Kary (11.0-15.0) % Plt Count (150-400) K/uL MPV (7.40-12.00) fL Neut % (Auto) (48.0-80.0) % Lymph % (Auto) (16.0-40.0) % [place] % (Auto) (0.0-15.0) % Eos % (Auto) (0.0-7.0) % Baso % (Auto) (0.0-1.5) % Neut # (Auto) (1.4-5.7) K/uL Lymph # (Auto) (0.6-2.4) K/uL [place] # (Auto) (0.0-0.8) K/uL Eos # (Auto) (0.0-0.7) K/uL Baso # (Auto) (0.0-0.1) K/uL Nucleated RBC % /100WBC Nucleated RBCs # K/uL Ionized Calcium 6.2 H (4.6-5.1) mg/dL Lactate (0.20-2.00) mmol/L Sodium (136-145) mmol/L Potassium (3.5-5.1) mmol/L Chloride (98-107) mmol/L Carbon Dioxide (21.0-32.0) mmol/L BUN (7.0-18.0) mg/dL Creatinine (0.6-1.0) mg/dL Est Cr Clr Drug Dosing Estimated GFR (MDRD) ml/min Glucose (74-106) mg/dL POC Glucose 76 (60-110) mg/dL Calcium (8.5-10.1) mg/dL Total Bilirubin (0.2-1.0) mg/dL AST (15-37) IU/L ALT (14-63) IU/L Alkaline Phosphatase (46-116) U/L Total Protein (6.4-8.2) g/dL Albumin (3.4-5.0) g/dL Globulin (2.6-4.0) g/dL Albumin/Globulin Ratio (0.9-1.6) Urine Color YELLOW Urine Appearance CLOUDY Urine pH 8.0 (5.0-8.0) Ur Specific [place] 1.020 (1.001-1.035) Urine Protein NEGATIVE (NEGATIVE) mg/dL Urine Glucose (UA) NEGATIVE (NEGATIVE) mg/dL Urine Ketones NEGATIVE (NEGATIVE) mg/dL Urine Occult Blood NEGATIVE (NEGATIVE) Urine Nitrite NEGATIVE (NEGATIVE) Urine Bilirubin SMALL H (NEGATIVE) Urine Ictotest NEGATIVE Urine Urobilinogen 0.2 (<2.0) EU/dL Ur Leukocyte Esterase LARGE H (NEGATIVE) Urine RBC 0-3 (0-2/HPF) Urine WBC TO NUMEROUS TO COUNT H (0-5/HPF) Ur Epithelial Cells MODERATE (NONE-FEW) Amorphous Sediment MODERATE (NEGATIVE) Urine Bacteria 4+ H (NEGATIVE) Urine Mucus LIGHT (NONE-MOD) 05/17/19 05/17/19 05/17/19 Range/Units 00:40 04:45 04:45 WBC 7.63 (4.0-11.0) K/uL RBC 3.66 L (4.30-5.90) M/uL Hgb 9.8 L (12.0-16.0) g/dL Hct 32.3 L (36.0-46.0) % MCV 88.3 (80.0-98.0) fL MCH 26.8 L (27.0-32.0) pg MCHC 30.3 L (31.0-37.0) g/dL RDW Std Deviation 52.7 (28.0-62.0) fl RDW Coeff of Kary 17 H (11.0-15.0) % Plt Count 157 (150-400) K/uL MPV 9.40 (7.40-12.00) fL Neut % (Auto) 63.4 (48.0-80.0) % Lymph % (Auto) 21.5 (16.0-40.0) % [place] % (Auto) 12.8 (0.0-15.0) % Eos % (Auto) 2.0 (0.0-7.0) % Baso % (Auto) 0.3 (0.0-1.5) % Neut # (Auto) 4.8 (1.4-5.7) K/uL Lymph # (Auto) 1.6 (0.6-2.4) K/uL [place] # (Auto) 1.0 H (0.0-0.8) K/uL Eos # (Auto) 0.2 (0.0-0.7) K/uL Baso # (Auto) 0.0 (0.0-0.1) K/uL Nucleated RBC % 0.0 /100WBC Nucleated RBCs # 0 K/uL Ionized Calcium (4.6-5.1) mg/dL Lactate (0.20-2.00) mmol/L Sodium 141 (136-145) mmol/L Potassium 3.5 (3.5-5.1) mmol/L Chloride 105 (98-107) mmol/L Carbon Dioxide 35.1 H (21.0-32.0) mmol/L BUN 39 H (7.0-18.0) mg/dL Creatinine 2.0 H (0.6-1.0) mg/dL Est Cr Clr Drug Dosing 18.90 Estimated GFR (MDRD) 23.6 ml/min Glucose 138 H (74-106) mg/dL POC Glucose 135 H (60-110) mg/dL Calcium 10.7 H (8.5-10.1) mg/dL Total Bilirubin 0.3 (0.2-1.0) mg/dL AST 10 L (15-37) IU/L ALT 16 (14-63) IU/L Alkaline Phosphatase 70 (46-116) U/L Total Protein 5.1 L (6.4-8.2) g/dL Albumin 1.9 L (3.4-5.0) g/dL Globulin 3.2 (2.6-4.0) g/dL Albumin/Globulin Ratio 0.6 L (0.9-1.6) Urine Color Urine Appearance Urine pH (5.0-8.0) Ur Specific Butler (1.001-1.035) Urine Protein (NEGATIVE) mg/dL Urine Glucose (UA) (NEGATIVE) mg/dL Urine Ketones (NEGATIVE) mg/dL Urine Occult Blood (NEGATIVE) Urine Nitrite (NEGATIVE) Urine Bilirubin (NEGATIVE) Urine Ictotest Urine Urobilinogen (<2.0) EU/dL Ur Leukocyte Esterase (NEGATIVE) Urine RBC (0-2/HPF) Urine WBC (0-5/HPF) Ur Epithelial Cells (NONE-FEW) Amorphous Sediment (NEGATIVE) Urine Bacteria (NEGATIVE) Urine Mucus (NONE-MOD) 05/17/19 05/17/19 Range/Units 06:01 11:21 WBC (4.0-11.0) K/uL RBC (4.30-5.90) M/uL Hgb (12.0-16.0) g/dL Hct (36.0-46.0) % MCV (80.0-98.0) fL MCH (27.0-32.0) pg MCHC (31.0-37.0) g/dL RDW Std Deviation (28.0-62.0) fl RDW Coeff of Kary (11.0-15.0) % Plt Count (150-400) K/uL MPV (7.40-12.00) fL Neut % (Auto) (48.0-80.0) % Lymph % (Auto) (16.0-40.0) % [place] % (Auto) (0.0-15.0) % Eos % (Auto) (0.0-7.0) % Baso % (Auto) (0.0-1.5) % Neut # (Auto) (1.4-5.7) K/uL Lymph # (Auto) (0.6-2.4) K/uL [place] # (Auto) (0.0-0.8) K/uL Eos # (Auto) (0.0-0.7) K/uL Baso # (Auto) (0.0-0.1) K/uL Nucleated RBC % /100WBC Nucleated RBCs # K/uL Ionized Calcium (4.6-5.1) mg/dL Lactate (0.20-2.00) mmol/L Sodium (136-145) mmol/L Potassium (3.5-5.1) mmol/L Chloride (98-107) mmol/L Carbon Dioxide (21.0-32.0) mmol/L BUN (7.0-18.0) mg/dL Creatinine (0.6-1.0) mg/dL Est Cr Clr Drug Dosing Estimated GFR (MDRD) ml/min Glucose (74-106) mg/dL POC Glucose 145 H 160 H (60-110) mg/dL Calcium (8.5-10.1) mg/dL Total Bilirubin (0.2-1.0) mg/dL AST (15-37) IU/L ALT (14-63) IU/L Alkaline Phosphatase (46-116) U/L Total Protein (6.4-8.2) g/dL Albumin (3.4-5.0) g/dL Globulin (2.6-4.0) g/dL Albumin/Globulin Ratio (0.9-1.6) Urine Color Urine Appearance Urine pH (5.0-8.0) Ur Specific [place] (1.001-1.035) Urine Protein (NEGATIVE) mg/dL Urine Glucose (UA) (NEGATIVE) mg/dL Urine Ketones (NEGATIVE) mg/dL Urine Occult Blood (NEGATIVE) Urine Nitrite (NEGATIVE) Urine Bilirubin (NEGATIVE) Urine Ictotest Urine Urobilinogen (<2.0) EU/dL Ur Leukocyte Esterase (NEGATIVE) Urine RBC (0-2/HPF) Urine WBC (0-5/HPF) Ur Epithelial Cells (NONE-FEW) Amorphous Sediment (NEGATIVE) Urine Bacteria (NEGATIVE) Urine Mucus (NONE-MOD) Med Orders - Current: Current Medications Albuterol/Ipratropium (Duoneb 3.0-0.5 Mg/3 Ml) 3 ml NEB Q4HRRT PRN PRN Reason: Shortness Of Breath/wheezing Artificial Tears (Refresh Plus 0.5%) 1 each EYEBOTH TID [facility] Last Admin: 05/17/19 05:32 Dose: 1 drop Bisacodyl (Dulcolax) 10 mg RECTAL Q24H PRN PRN Reason: Constipation Heparin Sodium (Porcine) (Heparin Sodium) 5,000 units SUBCUT Q12H [facility] Last Admin: 05/17/19 04:52 Dose: 5,000 units Sodium Chloride (Normal Saline) 500 mls @ 999 mls/hr IV .BOLUS [facility] Last Admin: 05/16/19 15:15 Dose: 999 mls/hr Dextrose/Sodium Chloride (Dextrose 5%-1/2 Ns) 1,000 mls @ 100 mls/hr IV ASDIRECTED [facility] Last Admin: 05/17/19 03:40 Dose: 100 mls/hr Meropenem/Sodium Chloride 500 (mg/ Premix) 50 mls @ 100 mls/hr IV Q12H [facility] [facility] Last Admin: 05/17/19 04:50 Dose: 100 mls/hr Morphine Sulfate (Morphine) 2 mg IVPUSH Q4H PRN PRN Reason: Pain Nystatin (Nystop) 1 gm TOP Q8H PRN PRN Reason: Rash Ondansetron HCl (Zofran) 4 mg IVPUSH Q4H PRN PRN Reason: Nausea Sodium Chloride (Saline Flush) 10 ml FLUSH ASDIRECTED PRN PRN Reason: Keep Vein Open Last Admin: 05/16/19 15:15 Dose: 10 ml Sodium Chloride (Saline Flush) 2.5 ml FLUSH ASDIRECTED PRN PRN Reason: Keep Vein Open Last Admin: 05/16/19 15:15 Dose: 2.5 ml Sodium Chloride ([place] Nasal [place]) 0 ml NASBOTH QID PRN PRN Reason: Dryness Discontinued Medications Acetaminophen (Tylenol) 650 mg PO NOW ONE Stop: 05/16/19 16:14 Last Admin: 05/16/19 19:36 Dose: Not Given Bisacodyl (Dulcolax) 10 mg RECTAL ONETIME ONE Stop: 05/17/19 10:01 Last Admin: 05/17/19 11:13 Dose: 10 mg Furosemide (Lasix) 20 mg IVPUSH NOW ONE Stop: 05/16/19 14:45 Last Admin: 05/16/19 15:15 Dose: 20 mg Ceftriaxone Sodium/Dextrose 1 (gm/ Premix) 50 mls @ 100 mls/hr IV ONETIME ONE Stop: 05/16/19 16:24 Last Admin: 05/16/19 16:06 Dose: 100 mls/hr Insulin Aspart (Novolog) 14 unit SUBCUT NOW STA Stop: 05/16/19 17:03 Last Admin: 05/16/19 18:23 Dose: Not Given
[2019-05-17] MEDS ORDERED: Dextrose 5%-0.45% NaCl 1,000 ML IV SCH (16:06)
[2019-05-18] MEDS: MEROPENEM IV SCH ×4 (05:20→17:32)
[2019-05-18] MEDS: Heparin Sodium 5,000 Units/ML Vial SUBCUT SCH ×2 (05:24→17:33)
[2019-05-18] MEDS: Carboxymethylcellulose Sodium 0.5% Ophth Soln 0.4 ML UD Box of 30 EYEBOTH SCH ×3 (05:24→22:29)
[2019-05-18] MEDS ORDERED: Potassium Chloride 20 MEQ Tab.ER PO ONE (08:02)
--- NOTE | 2019-05-18 08:30 | PCM.PN ---
<Autumn Sinclair M - Last Filed: 05/18/19 09:23> - General Info Date of Service: 05/18/19 Admission Dx/Problem (Free Text): UTI Subjective Update: Sitting up in recliner. Feeling better today. reports she is drinking well, denies nausea. No pain currently. Functional Status: Reports: Pain Controlled, Tolerating Diet, Ambulating - Review of Systems General: Reports: No Symptoms. Denies: Fever, Weakness, Fatigue HEENT: Reports: No Symptoms. Denies: Headaches, Sore Throat, Rhinitis, Visual Changes Pulmonary: Reports: No Symptoms. Denies: Shortness of Breath Cardiovascular: Reports: No Symptoms. Denies: Chest Pain, Palpitations, Dyspnea on Exertion Gastrointestinal: Reports: No Symptoms. Denies: Abdominal Pain, Nausea, Vomiting Genitourinary: Reports: No Symptoms. Denies: Flank Pain Musculoskeletal: Reports: No Symptoms Skin: Reports: No Symptoms Neurological: Reports: No Symptoms Psychiatric: Reports: No Symptoms - Patient Data Vitals - Most Recent: Last Vital Signs Temp 96.8 F 05/18/19 04:18 Pulse 68 05/18/19 04:18 Resp 18 05/18/19 04:18 BP 152/65 H 05/18/19 04:18 Pulse Ox 95 05/18/19 04:18 Weight - Most Recent: 83.96 kg I&O - Last 24 Hours: Intake & Output 05/17/19 05/18/19 05/18/19 22:59 06:59 14:59 Intake Total 1209 987 Output Total 400 300 Balance 809 687 Lab Results Last 24 Hours: Laboratory Results - last 24 hr 05/17/19 05/17/19 05/17/19 Range/Units 11:21 17:18 20:51 WBC (4.0-11.0) K/uL RBC (4.30-5.90) M/uL Hgb (12.0-16.0) g/dL Hct (36.0-46.0) % MCV (80.0-98.0) fL MCH (27.0-32.0) pg MCHC (31.0-37.0) g/dL RDW Std Deviation (28.0-62.0) fl RDW Coeff of Kary (11.0-15.0) % Plt Count (150-400) K/uL MPV (7.40-12.00) fL Neut % (Auto) (48.0-80.0) % Lymph % (Auto) (16.0-40.0) % [place] % (Auto) (0.0-15.0) % Eos % (Auto) (0.0-7.0) % Baso % (Auto) (0.0-1.5) % Neut # (Auto) (1.4-5.7) K/uL Lymph # (Auto) (0.6-2.4) K/uL [place] # (Auto) (0.0-0.8) K/uL Eos # (Auto) (0.0-0.7) K/uL Baso # (Auto) (0.0-0.1) K/uL Nucleated RBC % /100WBC Nucleated RBCs # K/uL Sodium (136-145) mmol/L Potassium (3.5-5.1) mmol/L Chloride (98-107) mmol/L Carbon Dioxide (21.0-32.0) mmol/L BUN (7.0-18.0) mg/dL Creatinine (0.6-1.0) mg/dL Est Cr Clr Drug Dosing mL/min Estimated GFR (MDRD) ml/min Glucose (74-106) mg/dL POC Glucose 160 H 156 H 208 H (60-110) mg/dL Calcium (8.5-10.1) mg/dL Total Bilirubin (0.2-1.0) mg/dL AST (15-37) IU/L ALT (14-63) IU/L Alkaline Phosphatase (46-116) U/L Total Protein (6.4-8.2) g/dL Albumin (3.4-5.0) g/dL Globulin (2.6-4.0) g/dL Albumin/Globulin Ratio (0.9-1.6) 05/18/19 05/18/19 05/18/19 Range/Units 05:59 06:05 06:05 WBC 6.60 (4.0-11.0) K/uL RBC 3.86 L (4.30-5.90) M/uL Hgb 10.3 L (12.0-16.0) g/dL Hct 33.1 L (36.0-46.0) % MCV 85.8 (80.0-98.0) fL MCH 26.7 L (27.0-32.0) pg MCHC 31.1 (31.0-37.0) g/dL RDW Std Deviation 50.6 (28.0-62.0) fl RDW Coeff of Kary 16 H (11.0-15.0) % Plt Count 127 L (150-400) K/uL MPV 9.70 (7.40-12.00) fL Neut % (Auto) 69.5 (48.0-80.0) % Lymph % (Auto) 20.8 (16.0-40.0) % [place] % (Auto) 8.0 (0.0-15.0) % Eos % (Auto) 1.5 (0.0-7.0) % Baso % (Auto) 0.2 (0.0-1.5) % Neut # (Auto) 4.6 (1.4-5.7) K/uL Lymph # (Auto) 1.4 (0.6-2.4) K/uL [place] # (Auto) 0.5 (0.0-0.8) K/uL Eos # (Auto) 0.1 (0.0-0.7) K/uL Baso # (Auto) 0.0 (0.0-0.1) K/uL Nucleated RBC % 0.0 /100WBC Nucleated RBCs # 0 K/uL Sodium 138 (136-145) mmol/L Potassium 3.1 L (3.5-5.1) mmol/L Chloride 104 (98-107) mmol/L Carbon Dioxide 30.9 (21.0-32.0) mmol/L BUN 33 H (7.0-18.0) mg/dL Creatinine 1.7 H (0.6-1.0) mg/dL Est Cr Clr Drug Dosing 22.24 mL/min Estimated GFR (MDRD) 28.5 ml/min Glucose 167 H (74-106) mg/dL POC Glucose 164 H (60-110) mg/dL Calcium 10.1 (8.5-10.1) mg/dL Total Bilirubin 0.3 (0.2-1.0) mg/dL AST 11 L (15-37) IU/L ALT 12 L (14-63) IU/L Alkaline Phosphatase 73 (46-116) U/L Total Protein 5.4 L (6.4-8.2) g/dL Albumin 2.0 L (3.4-5.0) g/dL Globulin 3.4 (2.6-4.0) g/dL Albumin/Globulin Ratio 0.6 L (0.9-1.6) Vishnu Results Last 24 Hours: Microbiology 05/16/19 13:55 Aerobic Blood Culture - Preliminary Blood - Venous - Lab Draw NO GROWTH AFTER 1 DAY Anaerobic Blood Culture - Preliminary NO GROWTH AFTER 1 DAY 05/16/19 13:39 Aerobic Blood Culture - Preliminary Blood - Venous NO GROWTH AFTER 1 DAY Anaerobic Blood Culture - Preliminary NO GROWTH AFTER 1 DAY Med Orders - Current: Current Medications Albuterol/Ipratropium (Duoneb 3.0-0.5 Mg/3 Ml) 3 ml NEB Q4HRRT PRN PRN Reason: Shortness Of Breath/wheezing Artificial Tears (Refresh Plus 0.5%) 1 each EYEBOTH TID [facility] Last Admin: 05/18/19 05:24 Dose: 1 each Bisacodyl (Dulcolax) 10 mg RECTAL Q24H PRN PRN Reason: Constipation Heparin Sodium (Porcine) (Heparin Sodium) 5,000 units SUBCUT Q12H [facility] Last Admin: 05/18/19 05:24 Dose: 5,000 units Sodium Chloride (Normal Saline) 500 mls @ 999 mls/hr IV .BOLUS [facility] Last Admin: 05/16/19 15:15 Dose: 999 mls/hr Meropenem/Sodium Chloride 500 (mg/ Premix) 50 mls @ 100 mls/hr IV Q12H [facility] Last Admin: 05/18/19 05:20 Dose: 100 mls/hr Morphine Sulfate (Morphine) 2 mg IVPUSH Q4H PRN PRN Reason: Pain Nystatin (Nystop) 1 gm TOP Q8H PRN PRN Reason: Rash Ondansetron HCl (Zofran) 4 mg IVPUSH Q4H PRN PRN Reason: Nausea Sodium Chloride (Saline Flush) 10 ml FLUSH ASDIRECTED PRN PRN Reason: Keep Vein Open Last Admin: 05/16/19 15:15 Dose: 10 ml Sodium Chloride (Saline Flush) 2.5 ml FLUSH ASDIRECTED PRN PRN Reason: Keep Vein Open Last Admin: 05/16/19 15:15 Dose: 2.5 ml Sodium Chloride ([place] Nasal [place]) 0 ml NASBOTH QID PRN PRN Reason: Dryness Discontinued Medications Acetaminophen (Tylenol) 650 mg PO NOW ONE Stop: 05/16/19 16:14 Last Admin: 05/16/19 19:36 Dose: Not Given Bisacodyl (Dulcolax) 10 mg RECTAL ONETIME ONE Stop: 05/17/19 10:01 Last Admin: 05/17/19 11:13 Dose: 10 mg Furosemide (Lasix) 20 mg IVPUSH NOW ONE Stop: 05/16/19 14:45 Last Admin: 05/16/19 15:15 Dose: 20 mg Ceftriaxone Sodium/Dextrose 1 (gm/ Premix) 50 mls @ 100 mls/hr IV ONETIME ONE Stop: 05/16/19 16:24 Last Admin: 05/16/19 16:06 Dose: 100 mls/hr Dextrose/Sodium Chloride (Dextrose 5%-1/2 Ns) 1,000 mls @ 100 mls/hr IV ASDIRECTED [facility] Last Admin: 05/17/19 13:16 Dose: 100 mls/hr Dextrose/Sodium Chloride (Dextrose 5%-1/2 Ns) 1,000 mls @ 75 mls/hr IV ASDIRECTED [facility] Last Admin: 05/18/19 00:30 Dose: 75 mls/hr Insulin Aspart (Novolog) 14 unit SUBCUT NOW STA Stop: 05/16/19 17:03 Last Admin: 05/16/19 18:23 Dose: Not Given Potassium Chloride (Klor-Con M20) 40 meq PO ONETIME ONE Stop: 05/18/19 08:03 - Exam General: Alert, Cooperative, No Acute Distress. No: Oriented Lungs: Decreased Breath Sounds (bibasilar) Cardiovascular: Regular Rate, Regular Rhythm, No Murmurs GI/Abdominal Exam: Normal Bowel Sounds, Soft, Non-Tender, Other (obese abdomen) Back Exam: Normal Inspection, Full Range of Motion Extremities: Normal Inspection, Normal Range of Motion, Non-Tender, No Pedal Edema Neurological: No New Focal Deficit Psy/Mental Status: Alert, Normal Affect, Normal Mood - Problem List & Annotations (1) SBO (small bowel obstruction) SNOMED Code(s): 499450514 Code(s): K56.609 - UNSP INTESTNL OBST, UNSP TO PARTIAL VERSUS COMPLETE OBST Status: Acute Current Visit: No (2) Hypercalcemia SNOMED Code(s): 84332210 Code(s): E83.52 - HYPERCALCEMIA Status: Acute Current Visit: Yes (3) UTI (urinary tract infection) SNOMED Code(s): 87860231 Code(s): N39.0 - URINARY TRACT INFECTION, SITE NOT SPECIFIED Status: Chronic Priority: High Current Visit: No Qualifiers: Urinary tract infection type: acute cystitis Hematuria presence: without hematuria Qualified Code(s): N30.00 - Acute cystitis without hematuria (4) ESBL (extended spectrum beta-lactamase) producing bacteria infection SNOMED Code(s): 816938810 Code(s): A49.9 - BACTERIAL INFECTION, UNSPECIFIED; Z16.12 - EXTENDED SPECTRUM BETA LACTAMASE (ESBL) RESISTANCE Status: Chronic Current Visit: Yes (5) Pleural effusion on right SNOMED Code(s): 17580664 Code(s): J90 - PLEURAL EFFUSION, NOT ELSEWHERE CLASSIFIED Status: Acute Current Visit: No (6) DMII (diabetes mellitus, type 2) SNOMED Code(s): 24238772 Code(s): E11.9 - TYPE 2 DIABETES MELLITUS WITHOUT COMPLICATIONS Status: Chronic Priority: Medium Current Visit: No Qualifiers: 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 Diabetes mellitus complication status: without complication Qualified Code(s): E11.9 - Type 2 diabetes mellitus without complications (7) GERD (gastroesophageal reflux disease) SNOMED Code(s): 049192238 Code(s): K21.9 - GASTRO-ESOPHAGEAL REFLUX DISEASE WITHOUT ESOPHAGITIS Status: Chronic Priority: Low Current Visit: No Qualifiers: Esophagitis presence: without esophagitis Qualified Code(s): K21.9 - Gastro -esophageal reflux disease without esophagitis (8) HTN (hypertension) SNOMED Code(s): 64352615 Code(s): I10 - ESSENTIAL (PRIMARY) HYPERTENSION Status: Chronic Priority : Medium Current Visit: No Qualifiers: Hypertension type: unspecified Qualified Code(s): I10 - Essential (primary ) hypertension - Problem List Review Problem List Initiated/Reviewed/Updated: Yes - My Orders Last 24 Hours: My Active Orders 05/17/19 07:54 Consult to Hospice [CONS] Routine 05/17/19 16:14 Accu Check [Blood Glucose Check, Bedside] [RC] TIDAC 05/17/19 Dinner Clear Liquid Diet [DIET] 05/19/19 05:11 CBC WITH AUTO DIFF [HEME] AM COMPREHENSIVE METABOLIC PN,CMP [CHEM] AM 05/20/19 05:11 CBC WITH AUTO DIFF [HEME] AM COMPREHENSIVE METABOLIC PN,CMP [CHEM] AM - Plan Plan:: This 88 year old female admitted with SBO, UTI and hypercalcemia 1. SBO vs ileus: Resolved. BM last night. abdomen no longer tender. Tolerating CL, will advance to soft diet. Continue good bowel regimen. 2. UTI: Has hx of ESBL E coli in urine. Continue with Meropenem. UC pending. BC negative growth x 2 days. 3. Hypercalcemia: Corrected Ca for this am is 11.3. Family wants no further investigation. They are moving patient to Hospice and palliative care. 4. DM Type 2: Monitor BS TIDAC. Will start Novolog. 5. HTN: Stable, will monitor. VTE prophylaxis: Heparin Dispo: Likely Thursday, when 5 day of Meropenem is completed. CODE STATUS: DNR, Hospice consult in. Family has decided palliative measures, currently would like her to have full course of antibiotics for UTI prior to discharge to help with AMS for daughter who is coming next week. <Tramaine Segovia - Last Filed: 05/18/19 13:03> - General Info Admission Dx/Problem (Free Text): I have examined the patient independently of Autumn Sinclair CNP. I have discussed the case with her. I have reviewed and agree with the examination and plan as outlined by her. Please see orders. - Patient Data Vitals - Most Recent: Last Vital Signs Temp 36.2 C 05/18/19 08:00 Pulse 57 L 05/18/19 08:00 Resp 16 05/18/19 08:00 BP 141/59 H 05/18/19 08:00 Pulse Ox 97 05/18/19 08:00 I&O - Last 24 Hours: Intake & Output 05/17/19 05/18/19 05/18/19 22:59 06:59 14:59 Intake Total 1209 987 Output Total 400 300 Balance 809 687 Lab Results Last 24 Hours: Laboratory Results - last 24 hr 05/17/19 05/17/19 05/18/19 Range/Units 17:18 20:51 05:59 WBC (4.0-11.0) K/uL RBC (4.30-5.90) M/uL Hgb (12.0-16.0) g/dL Hct (36.0-46.0) % MCV (80.0-98.0) fL MCH (27.0-32.0) pg MCHC (31.0-37.0) g/dL RDW Std Deviation (28.0-62.0) fl RDW Coeff of Kary (11.0-15.0) % Plt Count (150-400) K/uL MPV (7.40-12.00) fL Neut % (Auto) (48.0-80.0) % Lymph % (Auto) (16.0-40.0) % [place] % (Auto) (0.0-15.0) % Eos % (Auto) (0.0-7.0) % Baso % (Auto) (0.0-1.5) % Neut # (Auto) (1.4-5.7) K/uL Lymph # (Auto) (0.6-2.4) K/uL [place] # (Auto) (0.0-0.8) K/uL Eos # (Auto) (0.0-0.7) K/uL Baso # (Auto) (0.0-0.1) K/uL Nucleated RBC % /100WBC Nucleated RBCs # K/uL Sodium (136-145) mmol/L Potassium (3.5-5.1) mmol/L Chloride (98-107) mmol/L Carbon Dioxide (21.0-32.0) mmol/L BUN (7.0-18.0) mg/dL Creatinine (0.6-1.0) mg/dL Est Cr Clr Drug Dosing mL/min Estimated GFR (MDRD) ml/min Glucose (74-106) mg/dL POC Glucose 156 H 208 H 164 H (60-110) mg/dL Calcium (8.5-10.1) mg/dL Total Bilirubin (0.2-1.0) mg/dL AST (15-37) IU/L ALT (14-63) IU/L Alkaline Phosphatase (46-116) U/L Total Protein (6.4-8.2) g/dL Albumin (3.4-5.0) g/dL Globulin (2.6-4.0) g/dL Albumin/Globulin Ratio (0.9-1.6) 05/18/19 05/18/19 05/18/19 Range/Units 06:05 06:05 11:26 WBC 6.60 (4.0-11.0) K/uL RBC 3.86 L (4.30-5.90) M/uL Hgb 10.3 L (12.0-16.0) g/dL Hct 33.1 L (36.0-46.0) % MCV 85.8 (80.0-98.0) fL MCH 26.7 L (27.0-32.0) pg MCHC 31.1 (31.0-37.0) g/dL RDW Std Deviation 50.6 (28.0-62.0) fl RDW Coeff of Kary 16 H (11.0-15.0) % Plt Count 127 L (150-400) K/uL MPV 9.70 (7.40-12.00) fL Neut % (Auto) 69.5 (48.0-80.0) % Lymph % (Auto) 20.8 (16.0-40.0) % [place] % (Auto) 8.0 (0.0-15.0) % Eos % (Auto) 1.5 (0.0-7.0) % Baso % (Auto) 0.2 (0.0-1.5) % Neut # (Auto) 4.6 (1.4-5.7) K/uL Lymph # (Auto) 1.4 (0.6-2.4) K/uL [place] # (Auto) 0.5 (0.0-0.8) K/uL Eos # (Auto) 0.1 (0.0-0.7) K/uL Baso # (Auto) 0.0 (0.0-0.1) K/uL Nucleated RBC % 0.0 /100WBC Nucleated RBCs # 0 K/uL Sodium 138 (136-145) mmol/L Potassium 3.1 L (3.5-5.1) mmol/L Chloride 104 (98-107) mmol/L Carbon Dioxide 30.9 (21.0-32.0) mmol/L BUN 33 H (7.0-18.0) mg/dL Creatinine 1.7 H (0.6-1.0) mg/dL Est Cr Clr Drug Dosing 22.24 mL/min Estimated GFR (MDRD) 28.5 ml/min Glucose 167 H (74-106) mg/dL POC Glucose 140 H (60-110) mg/dL Calcium 10.1 (8.5-10.1) mg/dL Total Bilirubin 0.3 (0.2-1.0) mg/dL AST 11 L (15-37) IU/L ALT 12 L (14-63) IU/L Alkaline Phosphatase 73 (46-116) U/L Total Protein 5.4 L (6.4-8.2) g/dL Albumin 2.0 L (3.4-5.0) g/dL Globulin 3.4 (2.6-4.0) g/dL Albumin/Globulin Ratio 0.6 L (0.9-1.6) Vishnu Results Last 24 Hours: Microbiology 05/16/19 13:55 Aerobic Blood Culture - Preliminary Blood - Venous - Lab Draw NO GROWTH AFTER 1 DAY Anaerobic Blood Culture - Preliminary NO GROWTH AFTER 1 DAY 05/16/19 13:39 Aerobic Blood Culture - Preliminary Blood - Venous NO GROWTH AFTER 1 DAY Anaerobic Blood Culture - Preliminary NO GROWTH AFTER 1 DAY Med Orders - Current: Current Medications Hydrocodone Bitart/Acetaminophen ([place] 325-5 Mg) 1 tab PO Q6H PRN PRN Reason: Pain Albuterol/Ipratropium (Duoneb 3.0-0.5 Mg/3 Ml) 3 ml NEB Q4HRRT PRN PRN Reason: Shortness Of Breath/wheezing Allopurinol (Zyloprim) 100 mg PO DAILY [facility] Artificial Tears (Refresh Plus 0.5%) 1 each EYEBOTH TID [facility] Last Admin: 05/18/19 05:24 Dose: 1 each Bisacodyl (Dulcolax) 10 mg RECTAL Q24H PRN PRN Reason: Constipation Bumetanide (Bumex) 1 mg PO BID [facility] Heparin Sodium (Porcine) (Heparin Sodium) 5,000 units SUBCUT Q12H [facility] Last Admin: 05/18/19 05:24 Dose: 5,000 units Hydromorphone HCl (Dilaudid) 2 mg PO BEDTIME [facility] Sodium Chloride (Normal Saline) 500 mls @ 999 mls/hr IV .BOLUS [facility] Last Admin: 05/16/19 15:15 Dose: 999 mls/hr Meropenem/Sodium Chloride 500 (mg/ Premix) 50 mls @ 100 mls/hr IV Q12H [facility] Last Admin: 05/18/19 05:20 Dose: 100 mls/hr Insulin Aspart (Novolog) 0 unit SUBCUT TIDAC [facility]; Protocol Last Admin: 05/18/19 11:30 Dose: Not Given Morphine Sulfate (Morphine) 2 mg IVPUSH Q4H PRN PRN Reason: Pain Nystatin (Nystop) 1 gm TOP Q8H PRN PRN Reason: Rash Ondansetron HCl (Zofran) 4 mg IVPUSH Q4H PRN PRN Reason: Nausea Polyethylene Glycol (Miralax) 17 gm PO DAILY [facility] Last Admin: 05/18/19 10:51 Dose: 17 gm Sodium Chloride (Saline Flush) 10 ml FLUSH ASDIRECTED PRN PRN Reason: Keep Vein Open Last Admin: 05/16/19 15:15 Dose: 10 ml Sodium Chloride (Saline Flush) 2.5 ml FLUSH ASDIRECTED PRN PRN Reason: Keep Vein Open Last Admin: 05/16/19 15:15 Dose: 2.5 ml Sodium Chloride ([place] Nasal [place]) 0 ml NASBOTH QID PRN PRN Reason: Dryness Trazodone HCl (Trazodone Hcl) 200 mg PO BEDTIME [facility] Discontinued Medications Acetaminophen (Tylenol) 650 mg PO NOW ONE Stop: 05/16/19 16:14 Last Admin: 05/16/19 19:36 Dose: Not Given Bisacodyl (Dulcolax) 10 mg RECTAL ONETIME ONE Stop: 05/17/19 10:01 Last Admin: 05/17/19 11:13 Dose: 10 mg Furosemide (Lasix) 20 mg IVPUSH NOW ONE Stop: 05/16/19 14:45 Last Admin: 05/16/19 15:15 Dose: 20 mg Ceftriaxone Sodium/Dextrose 1 (gm/ Premix) 50 mls @ 100 mls/hr IV ONETIME ONE Stop: 05/16/19 16:24 Last Admin: 05/16/19 16:06 Dose: 100 mls/hr Dextrose/Sodium Chloride (Dextrose 5%-1/2 Ns) 1,000 mls @ 100 mls/hr IV ASDIRECTED [place] Last Admin: 05/17/19 13:16 Dose: 100 mls/hr Dextrose/Sodium Chloride (Dextrose 5%-1/2 Ns) 1,000 mls @ 75 mls/hr IV ASDIRECTED [place] Last Admin: 05/18/19 00:30 Dose: 75 mls/hr Insulin Aspart (Novolog) 14 unit SUBCUT NOW STA Stop: 05/16/19 17:03 Last Admin: 05/16/19 18:23 Dose: Not Given Potassium Chloride (Klor-Con M20) 40 meq PO ONETIME ONE Stop: 05/18/19 08:03 Last Admin: 05/18/19 08:39 Dose: 40 meq
[2019-05-18] MEDS ORDERED: Acetaminophen/HYDROcodone 325-5 MG Tab PO PRN (10:35)
[2019-05-18] MEDS: Polyethylene Glycol 3350 Powder 17 GM Packet PO SCH (10:51)
[2019-05-18] MEDS: Insulin Aspart 100 Units/ML 3 ML Pen SUBCUT SCH ×2 (11:30→17:29)
[2019-05-18] MEDS: Bumetanide 1 MG Tab PO SCH (20:27)
[2019-05-18] MEDS: HYDROmorphone 2 MG Tab PO SCH (20:28)
[2019-05-18] MEDS: traZODone 50 MG Tab PO SCH (20:46)
[2019-05-19] MEDS: Heparin Sodium 5,000 Units/ML Vial SUBCUT SCH ×2 (04:56→17:33)
[2019-05-19] MEDS: Carboxymethylcellulose Sodium 0.5% Ophth Soln 0.4 ML UD Box of 30 EYEBOTH SCH ×4 (05:02→21:58)
[2019-05-19] MEDS: MEROPENEM IV SCH ×4 (05:03→17:15)
[2019-05-19] MEDS: Insulin Aspart 100 Units/ML 3 ML Pen SUBCUT SCH ×3 (06:52→17:33)
[2019-05-19] MEDS: Polyethylene Glycol 3350 Powder 17 GM Packet PO SCH (08:56)
[2019-05-19] MEDS: Allopurinol 100 MG Tab PO SCH (08:56)
[2019-05-19] MEDS: Bumetanide 1 MG Tab PO SCH ×2 (08:56→21:56)
--- NOTE | 2019-05-19 09:14 | PCM.PN ---
<Autumn Sinclair M - Last Filed: 05/19/19 09:28> - General Info Date of Service: 05/19/19 Admission Dx/Problem (Free Text): UTI Subjective Update: Very alert today, asking for breakfast. No concerns. Reports pain is controlled. Denies abdominal pain. Functional Status: Reports: Pain Controlled, Tolerating Diet - Review of Systems General: Reports: No Symptoms. Denies: Weakness, Fatigue Pulmonary: Reports: No Symptoms. Denies: Shortness of Breath Cardiovascular: Reports: No Symptoms. Denies: Chest Pain Gastrointestinal: Reports: No Symptoms. Denies: Abdominal Pain, Nausea, Vomiting Genitourinary: Reports: No Symptoms. Denies: Dysuria, Frequency, Burning Musculoskeletal: Reports: No Symptoms Skin: Reports: No Symptoms Neurological: Reports: No Symptoms Psychiatric: Reports: No Symptoms - Patient Data Vitals - Most Recent: Last Vital Signs Temp 97.7 F 05/19/19 04:00 Pulse 63 05/19/19 04:00 Resp 18 05/19/19 04:00 BP 132/41 L 05/19/19 04:00 Pulse Ox 95 05/19/19 04:00 Weight - Most Recent: 84.459 kg I&O - Last 24 Hours: Intake & Output 05/18/19 05/19/19 05/19/19 22:59 06:59 14:59 Intake Total 670 290 Output Total 250 380 Balance 420 -90 Lab Results Last 24 Hours: Laboratory Results - last 24 hr 05/18/19 05/18/19 05/18/19 Range/Units 11:26 16:24 21:30 POC Glucose 140 H 137 H 140 H (60-110) mg/dL 05/19/19 Range/Units 06:15 POC Glucose 115 H (60-110) mg/dL Vishnu Results Last 24 Hours: Microbiology 05/16/19 15:15 Urine Culture - Final Urine, Catheterized Escherichia Coli Proteus Mirabilis 05/16/19 13:55 Aerobic Blood Culture - Preliminary Blood - Venous - Lab Draw NO GROWTH AFTER 2 DAYS Anaerobic Blood Culture - Preliminary NO GROWTH AFTER 2 DAYS 05/16/19 13:39 Aerobic Blood Culture - Preliminary Blood - Venous NO GROWTH AFTER 2 DAYS Anaerobic Blood Culture - Preliminary NO GROWTH AFTER 2 DAYS Med Orders - Current: Current Medications Hydrocodone Bitart/Acetaminophen ([place] 325-5 Mg) 1 tab PO Q6H PRN PRN Reason: Pain Albuterol/Ipratropium (Duoneb 3.0-0.5 Mg/3 Ml) 3 ml NEB Q4HRRT PRN PRN Reason: Shortness Of Breath/wheezing Allopurinol (Zyloprim) 100 mg PO DAILY [facility] Last Admin: 05/19/19 08:56 Dose: 100 mg Artificial Tears (Refresh Plus 0.5%) 1 each EYEBOTH TID [facility] Last Admin: 05/19/19 05:02 Dose: 1 each Bisacodyl (Dulcolax) 10 mg RECTAL Q24H PRN PRN Reason: Constipation Bumetanide (Bumex) 1 mg PO BID [facility] Last Admin: 05/19/19 08:56 Dose: 1 mg Heparin Sodium (Porcine) (Heparin Sodium) 5,000 units SUBCUT Q12H [facility] Last Admin: 05/19/19 04:56 Dose: 5,000 units Hydromorphone HCl (Dilaudid) 2 mg PO BEDTIME [facility] Last Admin: 05/18/19 20:28 Dose: 2 mg Sodium Chloride (Normal Saline) 500 mls @ 999 mls/hr IV .BOLUS [facility] Last Admin: 05/16/19 15:15 Dose: 999 mls/hr Meropenem/Sodium Chloride 500 (mg/ Premix) 50 mls @ 100 mls/hr IV Q12H [facility] Last Admin: 05/19/19 05:03 Dose: 100 mls/hr Insulin Aspart (Novolog) 0 unit SUBCUT TIDAC [facility]; Protocol Last Admin: 05/19/19 06:52 Dose: Not Given Morphine Sulfate (Morphine) 2 mg IVPUSH Q4H PRN PRN Reason: Pain Nystatin (Nystop) 1 gm TOP Q8H PRN PRN Reason: Rash Ondansetron HCl (Zofran) 4 mg IVPUSH Q4H PRN PRN Reason: Nausea Polyethylene Glycol (Miralax) 17 gm PO DAILY [facility] Last Admin: 05/19/19 08:56 Dose: 17 gm Sodium Chloride (Saline Flush) 10 ml FLUSH ASDIRECTED PRN PRN Reason: Keep Vein Open Last Admin: 05/16/19 15:15 Dose: 10 ml Sodium Chloride (Saline Flush) 2.5 ml FLUSH ASDIRECTED PRN PRN Reason: Keep Vein Open Last Admin: 05/16/19 15:15 Dose: 2.5 ml Sodium Chloride ([place] Nasal [place]) 0 ml NASBOTH QID PRN PRN Reason: Dryness Trazodone HCl (Trazodone) 200 mg PO BEDTIME [facility] Last Admin: 05/18/19 20:46 Dose: 200 mg Discontinued Medications Acetaminophen (Tylenol) 650 mg PO NOW ONE Stop: 05/16/19 16:14 Last Admin: 05/16/19 19:36 Dose: Not Given Bisacodyl (Dulcolax) 10 mg RECTAL ONETIME ONE Stop: 05/17/19 10:01 Last Admin: 05/17/19 11:13 Dose: 10 mg Furosemide (Lasix) 20 mg IVPUSH NOW ONE Stop: 05/16/19 14:45 Last Admin: 05/16/19 15:15 Dose: 20 mg Ceftriaxone Sodium/Dextrose 1 (gm/ Premix) 50 mls @ 100 mls/hr IV ONETIME ONE Stop: 05/16/19 16:24 Last Admin: 05/16/19 16:06 Dose: 100 mls/hr Dextrose/Sodium Chloride (Dextrose 5%-1/2 Ns) 1,000 mls @ 100 mls/hr IV ASDIRECTED [facility] Last Admin: 05/17/19 13:16 Dose: 100 mls/hr Dextrose/Sodium Chloride (Dextrose 5%-1/2 Ns) 1,000 mls @ 75 mls/hr IV ASDIRECTED [facility] Last Admin: 05/18/19 00:30 Dose: 75 mls/hr Insulin Aspart (Novolog) 14 unit SUBCUT NOW STA Stop: 05/16/19 17:03 Last Admin: 05/16/19 18:23 Dose: Not Given Potassium Chloride (Klor-Con M20) 40 meq PO ONETIME ONE Stop: 05/18/19 08:03 Last Admin: 05/18/19 08:39 Dose: 40 meq - Exam General: Alert, Cooperative, No Acute Distress HEENT: Mucous Membr. Moist/[place] Neck: Supple Lungs: Clear to Auscultation, Normal Respiratory Effort Cardiovascular: Regular Rate, Regular Rhythm GI/Abdominal Exam: Normal Bowel Sounds, Soft, Non-Tender Extremities: Normal Inspection, Normal Range of Motion, Non-Tender Neurological: No New Focal Deficit Psy/Mental Status: Alert, Normal Affect, Normal Mood - Problem List & Annotations (1) SBO (small bowel obstruction) SNOMED Code(s): 367842788 Code(s): K56.609 - UNSP INTESTNL OBST, UNSP TO PARTIAL VERSUS COMPLETE OBST Status: Resolved Current Visit: No (2) Hypercalcemia SNOMED Code(s): 98030532 Code(s): E83.52 - HYPERCALCEMIA Status: Acute Current Visit: Yes (3) UTI (urinary tract infection) SNOMED Code(s): 32362831 Code(s): N39.0 - URINARY TRACT INFECTION, SITE NOT SPECIFIED Status: Chronic Priority: High Current Visit: No Qualifiers: Urinary tract infection type: acute cystitis Hematuria presence: without hematuria Qualified Code(s): N30.00 - Acute cystitis without hematuria (4) ESBL (extended spectrum beta-lactamase) producing bacteria infection SNOMED Code(s): 947606326 Code(s): A49.9 - BACTERIAL INFECTION, UNSPECIFIED; Z16.12 - EXTENDED SPECTRUM BETA LACTAMASE (ESBL) RESISTANCE Status: Chronic Current Visit: Yes (5) Pleural effusion on right SNOMED Code(s): 04965515 Code(s): J90 - PLEURAL EFFUSION, NOT ELSEWHERE CLASSIFIED Status: Acute Current Visit: No (6) DMII (diabetes mellitus, type 2) SNOMED Code(s): 40455654 Code(s): E11.9 - TYPE 2 DIABETES MELLITUS WITHOUT COMPLICATIONS Status: Chronic Priority: Medium Current Visit: No Qualifiers: Diabetes mellitus jail insulin use: without manager terminal use Diabetes mellitus complication status: without complication Qualified Code(s): E11.9 - Type 2 diabetes mellitus without complications (7) GERD (gastroesophageal reflux disease) SNOMED Code(s): 530733879 Code(s): K21.9 - GASTRO-ESOPHAGEAL REFLUX DISEASE WITHOUT ESOPHAGITIS Status: Chronic Priority: Low Current Visit: No Qualifiers: Esophagitis presence: without esophagitis Qualified Code(s): K21.9 - Gastro -esophageal reflux disease without esophagitis (8) HTN (hypertension) SNOMED Code(s): 43328941 Code(s): I10 - ESSENTIAL (PRIMARY) HYPERTENSION Status: Chronic Priority : Medium Current Visit: No Qualifiers: Hypertension type: unspecified Qualified Code(s): I10 - Essential (primary ) hypertension - Problem List Review Problem List Initiated/Reviewed/Updated: Yes - My Orders Last 24 Hours: My Active Orders 05/18/19 10:35 Acetaminophen/HYDROcodone [[place] 325-5 MG] 1 tab PO Q6H PRN Comfort Measures [OM.PC] Routine 05/18/19 10:45 Polyethylene Glycol 3350 [MiraLAX] 17 gm PO DAILY 05/18/19 11:30 Insulin Aspart [NovoLOG] See Protocol SUBCUT TIDAC 05/18/19 21:00 Bumetanide [Bumex] 1 mg PO BID HYDROmorphone [Dilaudid] 2 mg PO BEDTIME traZODone 200 mg PO BEDTIME 05/18/19 Lunch Soft Diet [DIET] 05/19/19 09:00 Allopurinol [Zyloprim] 100 mg PO DAILY - Plan Plan:: This 88 year old female admitted with SBO, UTI and hypercalcemia 1. UTI: ESBL E Coli and proteus. Treatment will be complete tomorrow morning. Continue with Meropenem. BC negative growth x 2 days. As per family request would like UTI treatment, then transition to hospice care. Otherwise continue palliative measures now. 2. M Type 2: Monitor BS TIDAC. Continue Novolog. 3. HTN: Stable, will monitor. VTE prophylaxis: Heparin Dispo: Thursday to [facility]. CODE STATUS: DNR, comfort measures <Tramaine Segovia - Last Filed: 05/19/19 10:48> - General Info Admission Dx/Problem (Free Text): I have examined the patient independently of Autumn Sinclair CNP. I have discussed the case with her. I have reviewed and agree with the examination and plan as outlined by her. Please see orders. Pending placement. - Patient Data Vitals - Most Recent: Last Vital Signs Temp 36.1 C 05/19/19 08:00 Pulse 65 05/19/19 08:00 Resp 17 05/19/19 08:00 BP 153/69 H 05/19/19 08:00 Pulse Ox 99 05/19/19 08:00 I&O - Last 24 Hours: Intake & Output 05/18/19 05/19/19 05/19/19 22:59 06:59 14:59 Intake Total 670 290 120 Output Total 250 380 Balance 420 -90 120 Lab Results Last 24 Hours: Laboratory Results - last 24 hr 05/18/19 05/18/19 05/18/19 Range/Units 11:26 16:24 21:30 POC Glucose 140 H 137 H 140 H (60-110) mg/dL 05/19/19 Range/Units 06:15 POC Glucose 115 H (60-110) mg/dL Vishnu Results Last 24 Hours: Microbiology 05/16/19 15:15 Urine Culture - Final Urine, Catheterized Escherichia Coli Proteus Mirabilis 05/16/19 13:55 Aerobic Blood Culture - Preliminary Blood - Venous - Lab Draw NO GROWTH AFTER 2 DAYS Anaerobic Blood Culture - Preliminary NO GROWTH AFTER 2 DAYS 05/16/19 13:39 Aerobic Blood Culture - Preliminary Blood - Venous NO GROWTH AFTER 2 DAYS Anaerobic Blood Culture - Preliminary NO GROWTH AFTER 2 DAYS Med Orders - Current: Current Medications Hydrocodone Bitart/Acetaminophen ([place] 325-5 Mg) 1 tab PO Q6H PRN PRN Reason: Pain Albuterol/Ipratropium (Duoneb 3.0-0.5 Mg/3 Ml) 3 ml NEB Q4HRRT PRN PRN Reason: Shortness Of Breath/wheezing Allopurinol (Zyloprim) 100 mg PO DAILY [facility] Last Admin: 05/19/19 08:56 Dose: 100 mg Artificial Tears (Refresh Plus 0.5%) 1 each EYEBOTH TID [facility] Last Admin: 05/19/19 05:02 Dose: 1 each Bisacodyl (Dulcolax) 10 mg RECTAL Q24H PRN PRN Reason: Constipation Bumetanide (Bumex) 1 mg PO BID [facility] Last Admin: 05/19/19 08:56 Dose: 1 mg Heparin Sodium (Porcine) (Heparin Sodium) 5,000 units SUBCUT Q12H [facility] Last Admin: 05/19/19 04:56 Dose: 5,000 units Hydromorphone HCl (Dilaudid) 2 mg PO BEDTIME [facility] Last Admin: 05/18/19 20:28 Dose: 2 mg Sodium Chloride (Normal Saline) 500 mls @ 999 mls/hr IV .BOLUS [facility] Last Admin: 05/16/19 15:15 Dose: 999 mls/hr Meropenem/Sodium Chloride 500 (mg/ Premix) 50 mls @ 100 mls/hr IV Q12H [facility] Last Admin: 05/19/19 05:03 Dose: 100 mls/hr Insulin Aspart (Novolog) 0 unit SUBCUT TIDAC [facility]; Protocol Last Admin: 05/19/19 06:52 Dose: Not Given Morphine Sulfate (Morphine) 2 mg IVPUSH Q4H PRN PRN Reason: Pain Last Admin: 05/19/19 10:41 Dose: 2 mg Nystatin (Nystop) 1 gm TOP Q8H PRN PRN Reason: Rash Ondansetron HCl (Zofran) 4 mg IVPUSH Q4H PRN PRN Reason: Nausea Polyethylene Glycol (Miralax) 17 gm PO DAILY [facility] Last Admin: 05/19/19 08:56 Dose: 17 gm Sodium Chloride (Saline Flush) 10 ml FLUSH ASDIRECTED PRN PRN Reason: Keep Vein Open Last Admin: 05/16/19 15:15 Dose: 10 ml Sodium Chloride (Saline Flush) 2.5 ml FLUSH ASDIRECTED PRN PRN Reason: Keep Vein Open Last Admin: 05/16/19 15:15 Dose: 2.5 ml Sodium Chloride ([place] Nasal [place]) 0 ml NASBOTH QID PRN PRN Reason: Dryness Trazodone HCl (Trazodone) 200 mg PO BEDTIME [facility] Last Admin: 05/18/19 20:46 Dose: 200 mg Discontinued Medications Acetaminophen (Tylenol) 650 mg PO NOW ONE Stop: 05/16/19 16:14 Last Admin: 05/16/19 19:36 Dose: Not Given Bisacodyl (Dulcolax) 10 mg RECTAL ONETIME ONE Stop: 05/17/19 10:01 Last Admin: 05/17/19 11:13 Dose: 10 mg Furosemide (Lasix) 20 mg IVPUSH NOW ONE Stop: 05/16/19 14:45 Last Admin: 05/16/19 15:15 Dose: 20 mg Ceftriaxone Sodium/Dextrose 1 (gm/ Premix) 50 mls @ 100 mls/hr IV ONETIME ONE Stop: 05/16/19 16:24 Last Admin: 05/16/19 16:06 Dose: 100 mls/hr Dextrose/Sodium Chloride (Dextrose 5%-1/2 Ns) 1,000 mls @ 100 mls/hr IV ASDIRECTED [facility] Last Admin: 05/17/19 13:16 Dose: 100 mls/hr Dextrose/Sodium Chloride (Dextrose 5%-1/2 Ns) 1,000 mls @ 75 mls/hr IV ASDIRECTED [place] Last Admin: 05/18/19 00:30 Dose: 75 mls/hr Insulin Aspart (Novolog) 14 unit SUBCUT NOW STA Stop: 05/16/19 17:03 Last Admin: 05/16/19 18:23 Dose: Not Given Potassium Chloride (Klor-Con M20) 40 meq PO ONETIME ONE Stop: 05/18/19 08:03 Last Admin: 05/18/19 08:39 Dose: 40 meq
[2019-05-19] MEDS: traZODone 50 MG Tab PO SCH (21:54)
[2019-05-19] MEDS: HYDROmorphone 2 MG Tab PO SCH (21:55)
[2019-05-20] MEDS: Heparin Sodium 5,000 Units/ML Vial SUBCUT SCH (04:29)
[2019-05-20] MEDS: MEROPENEM IV SCH ×2 (04:57)
[2019-05-20] MEDS: Carboxymethylcellulose Sodium 0.5% Ophth Soln 0.4 ML UD Box of 30 EYEBOTH SCH (06:05)
[2019-05-20] MEDS: Insulin Aspart 100 Units/ML 3 ML Pen SUBCUT SCH (06:47)
[2019-05-20 08:50] VITALS: BP 153/68
[2019-05-20] MEDS: Allopurinol 100 MG Tab PO SCH (08:51)
[2019-05-20] MEDS: Bumetanide 1 MG Tab PO SCH (08:51)
[2019-05-20] MEDS: Polyethylene Glycol 3350 Powder 17 GM Packet PO SCH (08:51)
--- NOTE | 2019-05-20 10:01 | PCM.DCSUM1 ---
Discharge Summary - Discharge Data Discharge Date: 05/20/19 Discharge Disposition: DC/Tfer to SNF 03 Condition: Poor - Patient Summary/Data Consults: Consultations 05/16/19 16:56 Consult to Wound Care Services [CONS] Routine 05/17/19 07:54 Consult to Hospice [CONS] Routine Hospital Course: The patient is an 88-year-old lady who had been admitted to acute hospitalization on May 16, 2019. The patient was at [facility] where she had been in comfort measures only and she was presented primarily out of concern for altered mental status as well as hypercalcemia. The patient has a baseline history of dementia. The patient initially was noted to have an acute urinary tract infection with significant pyuria. The patient's urine cultures grew Escherichia coli which was considered to be ESBL and sensitive to meropenem. The patient also had a secondary organism Proteus mirabilis which was also sensitive to meropenem. The family had recommended that the patient be continued on meropenem for her acute urinary tract infection and the patient received last dose by day of discharge. The patient's hypocalcemia was treated with hydration and by day of discharge had normalized to 10.1 mg/dL. The patient had also been noted to have a low albumin to globulin ratio with a low total protein and low albumin. Because of the patient's age and discussion was held with the family regarding the possibility of multiple myeloma and this was decided not to be pursued. The patient's had stable vital signs since hospitalization. The patient initially had leukocytosis and this had normalized by day of discharge as well. The patient had returned to her baseline by day of discharge. The patient was maintained and a DO NOT INTUBATE/DO NOT RESUSCITATE category and she had been in a comfort measures only category while at [facility]. The has otherwise been stable and has been recommended to continue care as comfort measures only at [facility]. She is to have diet as tolerated. The patient is also to have activity within her capabilities as tolerated. She has been stable and is discharged with the recommendations as above. - Patient Instructions Diet: Regular Diet as Tolerated, Mechanical Soft Activity: As Tolerated Other/Special Instructions: Hospice. . [facility]. End of life care - Discharge Plan *PRESCRIPTION DRUG MONITORING PROGRAM REVIEWED*: Not Applicable *COPY OF PRESCRIPTION DRUG MONITORING REPORT IN PATIENT JIGAR: Not Applicable Prescriptions/Med Rec: Hydrocodone/Acetaminophen [Hydrocodon-Acetaminophen 5-325] 1 tab PO Q6H PRN #20 tablet PRN Reason: Pain HYDROmorphone [Dilaudid] 2 mg PO BEDTIME #10 tablet traZODone HCl [Trazodone HCl] 200 mg PO BEDTIME #15 tablet Home Medications: Home Meds Acetaminophen [Tylenol Arthritis Pain] 650 mg PO Q6H PRN 01/22/15 [History] Bumetanide 1 mg PO BID 01/22/15 [History] Magnesium Hydroxide [Milk of Magnesia] 30 ml PO DAILY PRN 01/22/15 [History] Polyethylene Glycol 3350 [MiraLAX] 17 gm PO DAILY 01/22/15 [History] Sodium Chloride [Saline Nasal [place]] 1 spray NASBOTH QID PRN 01/22/15 [History] buPROPion [Wellbutrin XL] 300 mg PO BEDTIME 01/22/15 [History] Bisacodyl [Dulcolax] 10 mg RC Q24H PRN 12/22/17 [History] Dextromethorphan HBr [Tussin Cough] 5 ml PO Q4H PRN 12/22/17 [History] Ondansetron 4 mg PO Q8H PRN 12/22/17 [History] Sennosides [Senna] 1 tab PO BID 12/22/17 [History] diphenhydrAMINE [Benadryl] 50 mg PO BEDTIME 12/22/17 [History] Aloe Vera/Sodium Chloride [[place] Saline Nasal Gel] 1 applic NASBOTH .4-10 TIMES DAILY PRN 12/23/17 [History] Propranolol HCl 80 mg PO DAILY 09/19/18 [History] Dextran 70/Hypromellose [Artificial Tears] 1 drop EYEBOTH TID #0 09/23/18 [Rx] Nystatin 100,000 unit TOP Q8H PRN #1 bottle 09/23/18 [Rx] HYDROmorphone [Dilaudid] 2 mg PO BEDTIME #10 tablet 05/19/19 [Rx] Hydrocodone/Acetaminophen [Hydrocodon-Acetaminophen 5-325] 1 tab PO Q6H PRN #20 tablet 05/19/19 [Rx] traZODone HCl [Trazodone HCl] 200 mg PO BEDTIME #15 tablet 05/19/19 [Rx] Acetaminophen [Tylenol Arthritis Pain] 650 mg PO Q6H 05/20/19 [History] Allopurinol [Zyloprim] 100 mg PO DAILY 05/20/19 [History] Aspirin [Halfprin] 81 mg PO DAILY 05/20/19 [History] Bumetanide [Bumex] 1 mg PO BID 05/20/19 [History] Calcium Citrate/Vitamin D3 [Calcium Citrate - Vit D Caplet] 1 each PO BID [History] Insulin Glargine,Hum.Rec.Anlog [Lantus Solostar] 25 units SQ BEDTIME 05/20/19 [ History] Linagliptin [Tradjenta] 5 mg PO DAILY 05/20/19 [History] Lutein/Min/Vit C/Vit E Acetate [Ocuvite Lutein] 1 cap PO DAILY 05/20/19 [History ] Propranolol HCl 80 mg PO DAILY 05/20/19 [History] Oxygen Therapy Mode: Room Air Patient Handouts: Acetaminophen; Hydrocodone tablets or capsules, Trazodone tablets, Hypercalcemia, Hydromorphone tablets Referrals: Zeke Olvera MD [Physician] - - Discharge Summary/Plan Comment DC Time >30 min.: Yes - General Info Date of Service: 05/20/19 Admission Dx/Problem (Free Text: I have examined the patient independently of Autumn Sinclair CNP. I have discussed the case with her. I have reviewed and agree with the examination and plan as outlined by her. Please see orders. Pending placement. Subjective Update: Objectively feeling better, dementia base line. ROS not reliable. - Review of Systems Systems Review Comment: ROS not reliable - Patient Data Vitals - Most Recent: Last Vital Signs Temp 36.4 C 05/20/19 08:00 Pulse 74 05/20/19 08:00 Resp 16 05/20/19 08:00 BP 153/68 H 05/20/19 08:00 Pulse Ox 97 05/20/19 08:00 Weight - Most Recent: 84.459 kg I&O - Last 24 hours: Intake & Output 05/19/19 05/20/19 05/20/19 22:59 06:59 14:59 Intake Total 800 170 120 Output Total 650 500 Balance 150 -330 120 Lab Results - Last 24 hrs: Laboratory Results - last 24 hr 05/19/19 05/19/1905/20/19 Range/Units 11:17 16:46 06:00 POC Glucose 133 H 120 H 112 H (60-110) mg/dL [facility] Results - Last 24 hrs: Microbiology 05/16/19 13:55 Aerobic Blood Culture - Preliminary Blood - Venous - Lab Draw NO GROWTH AFTER 3 DAYS Anaerobic Blood Culture - Preliminary NO GROWTH AFTER 3 DAYS 05/16/19 13:39 Aerobic Blood Culture - Preliminary Blood - Venous NO GROWTH AFTER 3 DAYS Anaerobic Blood Culture - Preliminary NO GROWTH AFTER 3 DAYS 05/16/19 15:15 Urine Culture - Final Urine, Catheterized Escherichia Coli Proteus Mirabilis Med Orders - Current: Current Medications Hydrocodone Bitart/Acetaminophen ([place] 325-5 Mg) 1 tab PO Q6H PRN PRN Reason: Pain Albuterol/Ipratropium (Duoneb 3.0-0.5 Mg/3 Ml) 3 ml NEB Q4HRRT PRN PRN Reason: Shortness Of Breath/wheezing Allopurinol (Zyloprim) 100 mg PO DAILY [facility] Last Admin: 05/20/19 08:51 Dose: 100 mg Artificial Tears (Refresh Plus 0.5%) 1 each EYEBOTH TID [facility] Last Admin: 05/20/19 06:05 Dose: 1 drop Bisacodyl (Dulcolax) 10 mg RECTAL Q24H PRN PRN Reason: Constipation Bumetanide (Bumex) 1 mg PO BID [facility] Last Admin: 05/20/19 08:51 Dose: 1 mg Heparin Sodium (Porcine) (Heparin Sodium) 5,000 units SUBCUT Q12H [facility] Last Admin: 05/20/19 04:29 Dose: 5,000 units Hydromorphone HCl (Dilaudid) 2 mg PO BEDTIME [facility] Last Admin: 05/19/19 21:55 Dose: 2 mg Sodium Chloride (Normal Saline) 500 mls @ 999 mls/hr IV .BOLUS [facility] Last Admin: 05/16/19 15:15 Dose: 999 mls/hr Meropenem/Sodium Chloride 500 (mg/ Premix) 50 mls @ 100 mls/hr IV Q12H [facility] Last Admin: 05/20/19 04:57 Dose: 100 mls/hr Insulin Aspart (Novolog) 0 unit SUBCUT TIDAC [facility]; Protocol Last Admin: 05/20/19 06:47 Dose: Not Given Morphine Sulfate (Morphine) 2 mg IVPUSH Q4H PRN PRN Reason: Pain Last Admin: 05/19/19 10:41 Dose: 2 mg Nystatin (Nystop) 1 gm TOP Q8H PRN PRN Reason: Rash Ondansetron HCl (Zofran) 4 mg IVPUSH Q4H PRN PRN Reason: Nausea Polyethylene Glycol (Miralax) 17 gm PO DAILY [facility] Last Admin: 05/20/19 08:51 Dose: 17 gm Sodium Chloride (Saline Flush) 10 ml FLUSH ASDIRECTED PRN PRN Reason: Keep Vein Open Last Admin: 05/16/19 15:15 Dose: 10 ml Sodium Chloride (Saline Flush) 2.5 ml FLUSH ASDIRECTED PRN PRN Reason: Keep Vein Open Last Admin: 05/16/19 15:15 Dose: 2.5 ml Sodium Chloride ([place] Nasal [place]) 0 ml NASBOTH QID PRN PRN Reason: Dryness Trazodone HCl (Trazodone) 200 mg PO BEDTIME [facility] Last Admin: 05/19/19 21:54 Dose: 200 mg Discontinued Medications Acetaminophen (Tylenol) 650 mg PO NOW ONE Stop: 05/16/19 16:14 Last Admin: 05/16/19 19:36 Dose: Not Given Bisacodyl (Dulcolax) 10 mg RECTAL ONETIME ONE Stop: 05/17/19 10:01 Last Admin: 05/17/19 11:13 Dose: 10 mg Furosemide (Lasix) 20 mg IVPUSH NOW ONE Stop: 05/16/19 14:45 Last Admin: 05/16/19 15:15 Dose: 20 mg Ceftriaxone Sodium/Dextrose 1 (gm/ Premix) 50 mls @ 100 mls/hr IV ONETIME ONE Stop: 05/16/19 16:24 Last Admin: 05/16/19 16:06 Dose: 100 mls/hr Dextrose/Sodium Chloride (Dextrose 5%-1/2 Ns) 1,000 mls @ 100 mls/hr IV ASDIRECTED [facility] Last Admin: 05/17/19 13:16 Dose: 100 mls/hr Dextrose/Sodium Chloride (Dextrose 5%-1/2 Ns) 1,000 mls @ 75 mls/hr IV ASDIRECTED [facility] Last Admin: 05/18/19 00:30 Dose: 75 mls/hr Insulin Aspart (Novolog) 14 unit SUBCUT NOW STA Stop: 05/16/19 17:03 Last Admin: 05/16/19 18:23 Dose: Not Given Potassium Chloride (Klor-Con M20) 40 meq PO ONETIME ONE Stop: 05/18/19 08:03 Last Admin: 05/18/19 08:39 Dose: 40 meq - Exam Quality Assessment: Reports: Urine Catheter. Denies: Supplemental Oxygen General: Reports: Alert, Cooperative. Denies: Oriented HEENT: Denies: Pupils Equal, Pupils Reactive (Blind), Mucous Membr. Moist/[place] ( Dry) Neck: Reports: Supple, Trachea Midline Lungs: Reports: Clear to Auscultation, Normal Respiratory Effort Cardiovascular: Reports: Regular Rate, Regular Rhythm GI/Abdominal Exam: Normal Bowel Sounds, No Distention Back Exam: Reports: Normal Inspection (Kyphosis) Extremities: Normal Inspection (Appropriate for age), No Pedal Edema Skin: Reports: Warm, Dry, Intact Psy/Mental Status: Reports: Alert
== END 2019-05-20 10:00 | DRG 389 ==
LOC: MW.ED 12:37 → MW.MS 16:30
PROVIDERS: ADMIT Internal Medicine; ATTEND Internal Medicine
DX: K56.609 Unspecified intestinal obstruction, unspecified as to partial versus complete obstruction (principal); N39.0 Urinary tract infection, site not specified; J90 Pleural effusion, not elsewhere classified; F03.90 Unspecified dementia, unspecified severity, without behavioral disturbance, psychotic disturbance, mood disturbance, and anxiety; G89.29 Other chronic pain; E83.52 Hypercalcemia; Z66 Do not resuscitate; Z51.5 Encounter for palliative care; I13.0 Hypertensive heart and chronic kidney disease with heart failure and stage 1 through stage 4 chronic kidney disease, or unspecified chronic kidney disease; I50.9 Heart failure, unspecified; E11.22 Type 2 diabetes mellitus with diabetic chronic kidney disease; K59.09 Other constipation; M19.91 Primary osteoarthritis, unspecified site; F32.9 Major depressive disorder, single episode, unspecified; N18.9 Chronic kidney disease, unspecified; K21.9 Gastro-esophageal reflux disease without esophagitis; I12.9 Hypertensive chronic kidney disease with stage 1 through stage 4 chronic kidney disease, or unspecified chronic kidney disease; B96.20 Unspecified Escherichia coli [E. coli] as the cause of diseases classified elsewhere; B96.4 Proteus (mirabilis) (morganii) as the cause of diseases classified elsewhere; M19.90 Unspecified osteoarthritis, unspecified site; J30.9 Allergic rhinitis, unspecified; K59.00 Constipation, unspecified; Z96.659 Presence of unspecified artificial knee joint; Z88.1 Allergy status to other antibiotic agents; Z88.7 Allergy status to serum and vaccine; Z88.8 Allergy status to other drugs, medicaments and biological substances; Z79.82 Long term (current) use of aspirin; Z79.4 Long term (current) use of insulin; Z99.81 Dependence on supplemental oxygen; Z79.899 Other long term (current) drug therapy
CPT/HCPCS: 36415; 71045; 74176; 80053; 81001; 82330; 83605; 85025; 87040 ×2; 87086; 87088 ×2; 87186 ×2; 96361; 96374; 99285; A4217; J0696; J1940; J7040; 74018; 74018-26; 82962; 96375; 99284; A9270-GY; J1644; J2185; J2270; J7042